=== PATIENT | male | born 1945 | race Caucasian/White ===

== ENCOUNTER 2018-04-15 20:44 | Observation (INO) | payer OTHER ==
[2018-04-15 22:21] LABS: Arterial Blood Carboxyhemoglob 1.1 % (0-1.5); Blood Gas Oxyhemoglobin 92.4 % (94-97); Blood O2 Saturation 94.7 % (92-98.5)
[2018-04-15 22:27] LABS: Absolute Lymphocytes (CBC) 1.7 K/uL (0.7-4.9); Absolute Monocytes 0.6 K/uL (0.1-1.3); Absolute Neutrophil 4.9 K/uL (1.8-8.0); Eosinophils % 7.4 % (0-4.4); Hematocrit 31.9 % (39.6-49.0); Lymphocytes % 21.8 % (15.3-44.8); MCV 102.7 fL (80-100); MPV 7.7 fL (7.6-11.3); Monocytes % 7.9 % (3.3-12.3)
[2018-04-15 22:31] LABS: Protime INR 0.97
[2018-04-15] MEDS ORDERED: FUROSEMIDE 40 MG/4 ML VIAL ONE (22:57)
[2018-04-15 23:23] LABS: Albumin 3.3 g/dL (3.4-5.0); Bilirubin Direct 0.2 mg/dL (0-0.2); Bilirubin Total 0.4 mg/dL (0.2-1.0); Magnesium 2.8 mg/dL (1.8-2.4); Potassium 4.6 mmol/L (3.5-5.1); Protein, Total 6.7 g/dL (6.4-8.2); Troponin (Emerg Dept Use Only) 0.05 ng/mL (0.0-0.045)
--- NOTE | 2018-04-16 01:16 | EDPHYS ---
Physician Documentation [facility] Name: Parish Matthews Age: 72 yrs Sex: Male : 1945 Arrival Date: 04/15/2018 Time: 20:45 Bed 23 Private MD: ED Physician Darian Martínez HPI: 04/15 22:12 This 72 yrs old Male presents to ER via Wheelchair with complaints of Chest pkl Pain. 22:12 The patient or guardian reports chest pain that is located primarily in the substernal pkl area. Onset: 2 week(s) ago, and became worse 2 day(s) ago. The pain radiates to the left arm. Associated signs and symptoms: Pertinent positives: hypertension. The chest pain is described as tightness. Historical: - Allergies: 21:04 antihisamines; aj1 - Home Meds: 21:04 carvedilol 6.25 mg oral tab 1 tab 2 times per day [Active]; clonidine HCl 0.1 mg Oral aj1 tab 1 tab as needed [Active]; allopurinol 75mg Oral tab 1 tab once daily [Active]; rosuvastatin 10 mg oral tab 1 tab once daily [Active]; sevelamer HCl oral oral 4 tab with meals [Active]; famotidine 20 mg Oral tab 1 tab once daily [Active]; - PMHx: 21:04 Dialysis; M,W,F; hernia repair 2 weeks ago; AV fistula to left arm; aj1 - PSHx: 21:04 Knee surgery; Cholecystectomy; aj1 - Immunization history:: Flu vaccine is up to date. - Social history:: Smoking status: Patient/guardian denies using tobacco. - Ebola Screening: : Patient denies travel to an Ebola-affected area in the 21 days before illness onset. ROS: 22:12 Eyes: Negative for injury, pain, redness, and discharge, ENT: Negative for injury, pkl pain, and discharge, Neck: Negative for injury, pain, and swelling. 22:12 Cardiovascular: Positive for chest pain. 22:12 Respiratory: Negative for cough. 22:12 Abdomen/GI: Negative for abdominal pain, nausea, vomiting, and diarrhea. 22:12 Back: Negative for acute changes. 22:12 : Negative for urinary symptoms. 22:12 MS/extremity: Negative for acute changes. 22:12 Skin: Negative for rash. 22:12 Neuro: Negative for altered mental status. Exam: 22:12 Head/Face: Normocephalic, atraumatic. Eyes: Pupils equal round and reactive to light, pkl extra-ocular motions intact. Lids and lashes normal. Conjunctiva and sclera are non-icteric and not injected. Cornea within normal limits. Periorbital areas with no swelling, redness, or edema. ENT: Nares patent. No nasal discharge, no septal abnormalities noted. Tympanic membranes are normal and external auditory canals are clear. Oropharynx with no redness, swelling, or masses, exudates, or evidence of obstruction, uvula midline. Mucous membranes moist. Neck: Trachea midline, no thyromegaly or masses palpated, and no cervical lymphadenopathy. Supple, full range of motion without nuchal rigidity, or vertebral point tenderness. No Meningismus. Chest/axilla: Normal chest wall appearance and motion. Nontender with no deformity. No lesions are appreciated. Cardiovascular: Regular rate and rhythm with a normal S1 and S2. No gallops, murmurs, or rubs. Normal PMI, no JVD. No pulse deficits. Respiratory: Lungs have equal breath sounds bilaterally, clear to auscultation and percussion. No rales, rhonchi or wheezes noted. No increased work of breathing, no retractions or nasal flaring. Abdomen/GI: Soft, non-tender, with normal bowel sounds. No distension or tympany. No guarding or rebound. No evidence of tenderness throughout. Back: No spinal tenderness. No costovertebral tenderness. Full range of motion. Skin: Warm, dry with normal turgor. Normal color with no rashes, no lesions, and no evidence of cellulitis. MS/ Extremity: Pulses equal, no cyanosis. Neurovascular intact. Full, normal range of motion. Neuro: Awake and alert, GCS 15, oriented to person, place, time, and situation. Cranial nerves II-XII grossly intact. Motor strength 5/5 in all extremities. Sensory grossly intact. Cerebellar exam normal. Normal gait. Vital Signs: 21:04 BP 195 / 102; Pulse 90; Resp 28; Temp 98.0; Pulse Ox 96% on R/A; Weight 117.93 kg (R); aj1 Height 5 ft. 8 in. (172.72 cm) (R); Pain 3/10; 21:30 BP 165 / 90; Pulse 66; Resp 18; Pulse Ox 97% on R/A; rv 22:00 BP 166 / 86; Pulse 63; Resp 18; Pulse Ox 98% on R/A; rv 22:30 BP 145 / 81; Pulse 65; Resp 16; Pulse Ox 100% on R/A; rv 23:00 BP 152 / 83; Pulse 61; Resp 15; Pulse Ox 98% on R/A; rv 23:30 BP 143 / 73; Pulse 58; Resp 16; Pulse Ox 98% on R/A; rv 04/16 00:00 BP 149 / 76; Pulse 64; Resp 16; Pulse Ox 100% on R/A; rv 00:58 BP 179 / 81; Pulse 64; Pulse Ox 99% on R/A; rv 02:11 BP 179 / 81; Pulse 78; Resp 19; Pulse Ox 97% on R/A; rv 04/15 21:04 Body Mass Index 39.53 (117.93 kg, 172.72 cm) aj1 MDM: 04/15 21:47 Patient medically screened. pkl 04/16 00:30 Data reviewed: vital signs, nurses notes, lab test result(s), EKG, radiologic studies, pkl plain films. 01:13 ED course: Talked to Dr. Manning, will dialyses patient in the morning. pkl 04/15 22:00 Order name: Basic Metabolic Panel pkl 04/15 22:00 Order name: CBC with Diff; Complete Time: 22:43 pkl 04/15 22:00 Order name: LFT's pkl 04/15 22:00 Order name: Magnesium pkl 04/15 22:00 Order name: NT PRO-BNP; Complete Time: 00:00 pkl 04/15 22:00 Order name: PT-INR; Complete Time: 22:43 pkl 04/15 22:00 Order name: Troponin (emerg Dept Use Only); Complete Time: 00:00 pkl 04/15 22:00 Order name: ABG; Complete Time: 22:43 pkl 04/15 22:02 Order name: Basic Metabolic Panel; Complete Time: 00:00 EDMS 04/15 22:02 Order name: Liver (Hepatic) Function; Complete Time: 00:00 EDMS 04/15 22:02 Order name: Magnesium; Complete Time: 00:00 EDMS 04/16 00:07 Order name: Troponin (emerg Dept Use Only); Complete Time: 00:42 rv 04/16 01:27 Order name: Basic Metabolic Panel EDMS 04/16 01:27 Order name: Basic Metabolic Panel EDMS 04/15 22:00 Order name: XRAY Chest (1 view) pkl 04/15 22:00 Order name: EKG; Complete Time: 22:02 pkl 04/16 01:27 Order name: CONS Physician Consult EDMS 04/16 01:27 Order name: Renal EDMS 04/16 01:27 Order name: EKG Electrocardiogram EDMS 04/16 01:27 Order name: EKG Electrocardiogram EDMS 04/16 01:27 Order name: EKG Electrocardiogram EDMS 04/16 01:27 Order name: EKG Electrocardiogram EDMS 04/16 01:27 Order name: CBC with Automated Diff EDMS 04/16 01:27 Order name: CBC with Automated Diff EDMS 04/16 01:27 Order name: Troponin I EDMS 04/16 01:27 Order name: Troponin I EDMS 04/16 01:27 Order name: Troponin I EDMS 04/16 05:08 Order name: CBC with Automated Diff EDMS 04/16 05:41 Order name: Basic Metabolic Panel EDMS 04/15 22:00 Order name: Cardiac monitoring; Complete Time: 22:15 pkl 04/15 22:00 Order name: EKG - Nurse/Tech; Complete Time: 22:02 pkl 04/15 22:00 Order name: IV Saline Lock; Complete Time: 22:15 pkl 04/15 22:00 Order name: Labs collected and sent; Complete Time: 22:15 pkl 04/15 22:00 Order name: O2 Per Protocol; Complete Time: 22:15 pkl 04/15 22:00 Order name: O2 Sat Monitoring; Complete Time: 22:15 pkl 04/16 00:07 Order name: EKG - Nurse/Tech; Complete Time: 00:20 rv Administered Medications: 04/15 22:52 Drug: Lasix 40 mg Route: IVP; Site: right antecubital; rv 04/16 00:20 Follow up: Response: No adverse reaction rv Disposition: 04/16/18 01:15 Hospitalization ordered by Sushil Abreu for Observation. Preliminary diagnosis is Chest pain. Chronic renal disease. Hypertension. Volume overload. - Bed requested for Telemetry/MedSurg (observation). - Status is Observation. ss - Condition is Stable. - Problem is new. - Symptoms are unchanged. UTI on Admission? No Signatures: Dispatcher [employer] EDMS Ade Brar Jacque Barrientos RN RN aj1 Darian Martínez MD MD pkl Radha Rodney RN RN bb Cecilia Slaughter RN RN ss Jim Sanz RN RN rv Corrections: (The following items were deleted from the chart) 01:17 01:15 Hospitalization Ordered by Sushil Abreu MD for Observation. Preliminary diagnosis pkl is Chest pain. Chronic renal disease. Hypertension. Volume overload. Bed requested for Telemetry/MedSurg (observation). Status is Observation. Condition is Stable. Problem is new. Symptoms are unchanged. UTI on Admission? No. pkl 01:34 01:17 04/16/2018 01:15 Hospitalization Ordered by Sushil Abreu MD for Observation. bb Preliminary diagnosis is Chest pain. Chronic renal disease. Hypertension. Volume overload. Bed requested for Telemetry/MedSurg (observation). Status is Observation. Condition is Stable. Problem is new. Symptoms are unchanged. UTI on Admission? No. pkl 08:27 01:34 04/16/2018 01:15 Hospitalization Ordered by Sushil Abreu MD for Observation. bd Preliminary diagnosis is Chest pain. Chronic renal disease. Hypertension. Volume overload. Bed requested for [facility] ER HOLD. Status is Observation. Condition is Stable. Problem is new. Symptoms are unchanged. UTI on Admission? No. bb 09:01 08:27 04/16/2018 01:15 Hospitalization Ordered by Sushil Abreu MD for Observation. ss Preliminary diagnosis is Chest pain. Chronic renal disease. Hypertension. Volume overload. Bed requested for Telemetry/MedSurg (observation). Status is Observation. Condition is Stable. Problem is new. Symptoms are unchanged. UTI on Admission? No. bd
--- NOTE | 2018-04-16 01:16 | ER ---
Nurse's Notes [facility] Name: Parish Matthews Age: 72 yrs Sex: Male : 1945 Arrival Date: 04/15/2018 Time: 20:45 Bed 23 Private MD: Diagnosis: Chest pain. Chronic renal disease. Hypertension. Volume overload Presentation: 04/15 21:00 Presenting complaint: Patient states: Chest pain for the past week that was aj1 intermittent, but the past 2 days it has felt more like tightness, become more persistent and has been accompanied by shortness of breath. States that symptoms are worse with activity and partially alleviated with rest. Transition of care: patient was not received from another setting of care. Onset of symptoms was March 2018. Risk Assessment: Do you want to hurt yourself or someone else? Patient reports no desire to harm self or others. Initial Sepsis Screen: Does the patient meet any 2 criteria? No. Patient's initial sepsis screen is negative. Does the patient have a suspected source of infection? No. Patient's initial sepsis screen is negative. Care prior to arrival: None. 21:00 Method Of Arrival: Wheelchair aj1 21:00 Acuity: STACY 3 aj1 Triage Assessment: 21:04 General: Appears in no apparent distress. uncomfortable, Behavior is cooperative, aj1 anxious. Pain: Complains of pain in mid-sternal area Pain radiates to left arm Pain currently is 3 out of 10 on a pain scale. Quality of pain is described as pressure, Pain began 2-3 days ago. Neuro: Level of Consciousness is awake, alert, obeys commands. Cardiovascular: Patient's skin is warm and dry. Respiratory: Airway is patent Respiratory effort is even, unlabored, Respiratory pattern is regular, symmetrical. Historical: - Allergies: 21:04 antihisamines; aj1 - Home Meds: 21:04 carvedilol 6.25 mg oral tab 1 tab 2 times per day [Active]; clonidine HCl 0.1 mg Oral aj1 tab 1 tab as needed [Active]; allopurinol 75mg Oral tab 1 tab once daily [Active]; rosuvastatin 10 mg oral tab 1 tab once daily [Active]; sevelamer HCl oral oral 4 tab with meals [Active]; famotidine 20 mg Oral tab 1 tab once daily [Active]; - PMHx: 21:04 Dialysis; M,W,F; hernia repair 2 weeks ago; AV fistula to left arm; aj1 - PSHx: 21:04 Knee surgery; Cholecystectomy; aj1 - Immunization history:: Flu vaccine is up to date. - Social history:: Smoking status: Patient/guardian denies using tobacco. - Ebola Screening: : Patient denies travel to an Ebola-affected area in the 21 days before illness onset. Screenin:17 Abuse screen: Denies threats or abuse. Denies injuries from another. Nutritional rv screening: No deficits noted. Tuberculosis screening: No symptoms or risk factors identified. Fall Risk None identified. Assessment: 22:16 General: Appears in no apparent distress. comfortable, Behavior is calm, cooperative. rv Pain: Complains of pain in chest. Pain: Pain Quality of pain is described as aching. Pain: Pain does not radiate. Pain: Pain began suddenly. Neuro: Level of Consciousness is awake, alert, obeys commands, Oriented to person, place, time, situation. Cardiovascular: Capillary refill < 3 seconds Rhythm is regular. Respiratory: Airway is patent Respiratory effort is labored. GI: No signs and/or symptoms were reported involving the gastrointestinal system. : No signs and/or symptoms were reported regarding the genitourinary system. EENT: No signs and/or symptoms were reported regarding the EENT system. Derm: Skin is intact. Musculoskeletal: No signs and/or symptoms reported regarding the musculoskeletal system. 04/16 00:37 Reassessment: Patient appears in no apparent distress at this time. rv 00:58 Reassessment: PATIENT IS COMPLAINING OF CHEST PAIN AND SOB AFTER AMBULATION. rv Vital Signs: 04/15 21:04 BP 195 / 102; Pulse 90; Resp 28; Temp 98.0; Pulse Ox 96% on R/A; Weight 117.93 kg (R); aj1 Height 5 ft. 8 in. (172.72 cm) (R); Pain 3/10; 21:30 BP 165 / 90; Pulse 66; Resp 18; Pulse Ox 97% on R/A; rv 22:00 BP 166 / 86; Pulse 63; Resp 18; Pulse Ox 98% on R/A; rv 22:30 BP 145 / 81; Pulse 65; Resp 16; Pulse Ox 100% on R/A; rv 23:00 BP 152 / 83; Pulse 61; Resp 15; Pulse Ox 98% on R/A; rv 23:30 BP 143 / 73; Pulse 58; Resp 16; Pulse Ox 98% on R/A; rv 04/16 00:00 BP 149 / 76; Pulse 64; Resp 16; Pulse Ox 100% on R/A; rv 00:58 BP 179 / 81; Pulse 64; Pulse Ox 99% on R/A; rv 02:11 BP 179 / 81; Pulse 78; Resp 19; Pulse Ox 97% on R/A; rv 04/15 21:04 Body Mass Index 39.53 (117.93 kg, 172.72 cm) aj1 ED Course: 04/15 20:45 Patient arrived in ED. ds1 21:02 Triage completed. aj1 21:04 Arm band placed on Patient placed in an exam room, Patient triaged in bed 23. aj1 21:47 Darian Martínez MD is Attending Physician. pkl 22:18 Patient has correct armband on for positive identification. Placed in gown. Bed in low rv position. Call light in reach. Side rails up X2. Adult w/ patient. groundwater monitoring technician on. Pulse ox on. NIBP on. 22:18 Initial lab(s) drawn, by me, sent to lab. Inserted saline lock: 20 gauge in right rv antecubital area, using aseptic technique. Blood collected. Patient maintains SpO2 saturation greater than 95% on room air. 22:35 XRAY Chest (1 view) In Process Unspecified. EDMS 23:26 Notified ED physician of a critical lab result(s). Creatinine 10.[address] Martínez jl3 notified, no order received. 04/16 01:13 Sushil Abreu MD is Hospitalizing Provider. pkl 02:13 No provider procedures requiring assistance completed. Patient admitted, IV remains in rv place. intact. 08:05 Estelita Ponce, RN is Primary Nurse. hb Administered Medications: 04/15 22:52 Drug: Lasix 40 mg Route: IVP; Site: right antecubital; rv 04/16 00:20 Follow up: Response: No adverse reaction rv Outcome: 01:15 Decision to Hospitalize by Provider. pkl 02:12 Admitted to ER Hold. Please see [facility] for further documentation. rv 02:12 Condition: stable 02:12 Instructed on the need for admit. 09:01 Patient left the ED. ss Signatures: Dispatcher [employer] EDJacque Leon, RN RN aj1 Darian Martínez MD MD pkl Sanford, Demi ds1 Cecilia Slaughter RN RN Michael Vidal RN RN jl3 Estelita Ponce RN RN Jim Joseph RN RN rv
[2018-04-16] MEDS ORDERED: ACETAMINOPHEN 500 MG TAB PO PRN (01:21)
[2018-04-16 05:06] LABS: Absolute Lymphocytes (CBC) 1.7 K/uL (0.7-4.9); Absolute Monocytes 0.7 K/uL (0.1-1.3); Absolute Neutrophil 4.5 K/uL (1.8-8.0); Eosinophils % 7.1 % (0-4.4); Hematocrit 29.6 % (39.6-49.0); MCH 34.7 pg (27.0-35.0); MCV 102.5 fL (80-100); MPV 7.5 fL (7.6-11.3); Monocytes % 9.2 % (3.3-12.3); RBC Red Blood Cell Count 2.89 M/uL (4.33-5.43)
[2018-04-16 05:40] LABS: Troponin I 0.05 ng/mL (0.0-0.045)
--- NOTE | 2018-04-16 07:32 | EKG ---
Test Date: 2018-04-16 Test Time: 00:16:13 Senior Sales Engineer: MEASUREMENT RESULTS: Intervals: Rate: 59 DE: 180 QRSD: 152 QT: 474 QTc: 469 [place]: P: 61 DE: 180 QRS: 80 T: 78 INTERPRETIVE STATEMENTS: Sinus bradycardia Right bundle branch block Abnormal ECG Compared to ECG 04/15/2018 20:57:05 Sinus rhythm no longer present Ventricular premature complex(es) no longer present Electronically Signed On 04-16-18 07:31:56 TELEGRAPHER AGENT by Leonel García
--- NOTE | 2018-04-16 07:34 | EKG ---
Test Date: 2018-04-15 Test Time: 20:57:05 Fleet Sales Manager: MACIEJ MEASUREMENT RESULTS: Intervals: Rate: 85 ME: 172 QRSD: 154 QT: 418 QTc: 497 [place]: P: 63 ME: 172 QRS: 75 T: 57 INTERPRETIVE STATEMENTS: Sinus rhythm with frequent premature ventricular complexes Right bundle branch block Abnormal ECG Compared to ECG 04/30/2003 15:27:00 Ventricular premature complex(es) now present Right bundle-branch block now present Electronically Signed On 04-16-18 07:33:18 GAGE DESIGNER by Leonel García
--- NOTE | 2018-04-16 08:19 | RAD REPORT ---
EXAM DESCRIPTION: RAD - Chest Single View - 04/15/2018 10:35 pm CLINICAL HISTORY: CHEST PAIN Chest pain. COMPARISON: Chest Pa And Lat (2 Views) dated 10/06/2015; CHEST PA AND LAT 2 VIEW dated 04/21/2014; [facility] PA AND LAT 2 VIEW dated 07/22/2011; CHEST PA AND LAT 2 VIEW dated 07/18/2011 FINDINGS: Portable technique limits examination quality. Mild interstitial pulmonary edema is seen. Heart is moderately enlarged in size. No displaced fractur es. IMPRESSION: Mild CHF versus volume overload pattern.
[2018-04-16] MEDS ORDERED: ASPIRIN EC 81 MG TAB PO SCH ×2 (09:00→21:00)
[2018-04-16] MEDS ORDERED: HEPA 1000U/500MLS 2,000 UNIT/1,000 ML BAG IV ONE (12:05)
[2018-04-16] MEDS ORDERED: HEPARIN 5000 UNIT/ML 1 ML VIAL ONE (12:05)
[2018-04-16] MEDS ORDERED: NA CHLORIDE 0.9% 500 ML ONE (12:05)
[2018-04-16] MEDS ORDERED: ATROPINE SULF 1 MG/10 ML SYR IV ONE (12:06)
[2018-04-16] MEDS ORDERED: NA CHLORIDE 0.9% 0 ML ONE (12:06)
[2018-04-16] MEDS ORDERED: NICARDIPINE HCL 25 MG/10 ML IV ONE (12:06)
[2018-04-16] MEDS ORDERED: FENTANYL CITR 100 MCG/2 ML ONE (12:58)
[2018-04-16] MEDS ORDERED: MIDAZOLAM HCL 2 MG/2 ML INJ ONE ×2 (12:58→13:40)
[2018-04-16] MEDS ORDERED: ALBUTEROL INHALER 60 PUFF/8 GM IH PRN (14:10)
--- NOTE | 2018-04-16 15:12 | CON ---
A 72-year-old man. Chief Complaint: Chest pain. History Of Present Illness: Mr. Matthews is a gentleman, who for about 5 days every time he moves too much he gets tight and heavy in the chest, runs out of breath. He is a hemodialysis patient. Today , he has been getting ready to start peritoneal dialysis. He has a port, but it has never been used. He has never had a heart catheterization or a stent in his heart. He has a history of hypertension . He is volume overloaded right now. His outpatient medications have been Coreg 6.25 b.i.d., clonid ine, allopurinol, Crestor 10, sevelamer, famotidine. He had an umbilical hernia repair 2 weeks ago. He has an AV fistula in his left arm and only has peritoneal dialysis. He has had knee surgery and a cholecystectomy. He uses no tobacco. Rare alcohol. No illegal drugs. Physical Examination: General: He is alert, oriented, pleasant, 5 feet 8 inches, 260 pounds, not in distress. Lungs: Clear. Cardiac: S4 gallop. Otherwise, within normal limits. Abdomen: Soft. Extremities: Mild edema. Distal pulses palpable. His radial pulse is good. Diagnostic Studies: An electrocardiogram shows sinus bradycardia, right bundle-branch block. He had PVCs on EKG at a different time this admission. Chest x-ray reveals volume overload. Impression: The patient has unstable angina. His troponins are terribly high, but his symptoms are highly suggestive of unstable angina. I do not recommend doing a stress test. I think he should do a heart catheterization. He seems to understand the procedure, potential benefits, indications, risk s, and agrees to proceed. NALLELY/MIGUEL ANGEL Voice ID: [id number] Report ID: [id number]
[2018-04-16] MEDS ORDERED: HOME MED 1 EA UNK (Budesonide/Formoterol Fumarate [Symbicort 80-4.5 Mcg Inhaler] 1 PUFF) IH SCH (18:00)
[2018-04-16] MEDS ORDERED: ALBUTEROL INHALER 60 PUFF/8 GM IH SCH (18:00)
[2018-04-16 20:08] LABS: Potassium 3.8 mmol/L (3.5-5.1)
[2018-04-16] MEDS ORDERED: ALLOPURINOL 100 MG TAB PO SCH (21:00)
[2018-04-16] MEDS ORDERED: SODIUM BICARB 325 MG TAB PO SCH (21:00)
[2018-04-16] MEDS: CARVEDILOL 6.25 MG TAB PO SCH (21:00)
[2018-04-16] MEDS ORDERED: ROSUVASTATIN 10 MG TAB PO SCH (21:00)
[2018-04-16] MEDS ORDERED: ATORVASTATIN 10 MG TAB PO SCH (21:00)
[2018-04-16] MEDS ORDERED: FAMOTIDINE 20 MG TAB PO SCH (21:00)
[2018-04-16] MEDS: HOME MED 1 EA UNK (Mycophenolate Mofetil [Cellcept] 500 MG) PO SCH (21:00)
--- NOTE | 2018-04-17 01:25 | OP ---
Surgeon: Leonel García MD Procedures: Left heart catheterization, coronary left ventricular angiography. Procedure Findings: The patient has normal coronary arteries, normal ejection fraction, normal segme ntal wall motion analysis, and normal pressures. Left ventricular end-diastolic pressure 13 mmHg. Procedure In Detail: The patient was brought to the cardiac stores laborer in a fasting state. Sedated wi th Versed and fentanyl. Prepared and draped in the usual sterile fashion. Right radial approach was used. The tissues around the right radial artery were anesthetized with 1% lidocaine. The artery w as entered using a 21-gauge needle. A 0.021 inch diameter guidewire was used to cannulate the artery and then modified Seldinger technique allowed us to place a 6-[place] [employer] radial sheath. We flush ed the sheath and gave a radial cocktail consisting of nicardipine, heparin, nitroglycerin. A TIG ca theter by [employer] was used, guided into place using fluoroscopy and a [employer] Glidewire with a short ra dius J-tip. Once the catheter was in place, we were able to angiogram right coronary, left coronary, and left ventricle; all with the same catheter. We withdrew the catheter over a wire at the end of the procedure when the decision was made that he did not need any coronary interventions. The sheath was removed. The arteriotomy closed with a TR band. At the end of the procedure, no complication. Estimated Blood Loss: 5 cc. Orthopedics Nurse: Marietta Rossi. NALLELY/MIGUEL ANGEL Voice ID: [id number] Report ID: [id number]
--- NOTE | 2018-04-17 03:49 | CON ---
Date of Consultation: 04/16/2018 Chief Complaint: End-stage renal disease on dialysis, severe dyspnea, chest pain. History Of Present Illness: The patient was found to have fluid overload and Nephrology consultation was obtained for emergent dialysis. The patient presented to the hospital for chest pain. He was complaining of substernal chest pain. Chest pain occurred about 2 weeks ago, although chest pain became worse and was associated with activities over last 2 days. The patient was complaining of substernal upper chest pain radiating to left arm. He checked blood pressure at home and blood pressure was elevated. Usually patient does not take blood pressure medication and blood pressure is controlled with low- sodium diet and dialysis. The patient is dialysis dependent and has been dialyzed 3 times per week. Recently, he was out of town and was coming back to his usual dialysis unit and was dialyzed prior to this admission. Despite the fact that ultrafiltration was obtained, patient was complaining of some shortness of breath, chest tightness. He took clonidine at home for systolic blood pressure over 160. He has been taking carvedilol on daily basis. Occasionally when blood pressure systolic is in the low 110, he does not take carvedilol. Review of Systems: General: Denies fever, chills. Eyes: Denies vision changes. Ears, Nose, Mouth, And Throat: Denies sore throat, earache. Respiratory: Has dyspnea on exertion and dyspnea at rest. Denies PND, orthopnea. Cardiovascular: Had chest pain. Was complaining of chest pressure radiating to left arm. GI: Denies nausea, vomiting. : Denies dysuria, hematuria. Musculoskeletal: Denies muscle aches or joint swelling. All other systems reviewed and all are negative. Past Medical History: Hypertension, hyperuricemia, gout, renal osteodystrophy, peptic ulcer disease, GERD, hypertensive heart and kidney disease, osteoarthritis . Past Surgical History: Status post has cholecystectomy, status post left upper extremity AV fistula. Social History: Denies tobacco, alcohol, or illicit drugs. Family History: No kidney disease in the family. Physical Examination: General: The patient is awake, alert, follows, not in acute distress. Eyes: Anicteric sclerae, EOMI. Neck: Supple. No JVD. No bruits. Lungs: Diminished breath sounds at bases. Heart: S1, S2. No pericardial friction rub. Abdomen: Obese, soft, nontender, no rebound, no guarding. Extremities: Mild edema. No cellulitis Neurological: Moving extremities. Cranial nerves intact. Psychiatric: Alert, oriented x3. Normal affect. Laboratory Work: Hemoglobin 10.0, WBC 7.4, platelet count is 152,000. Sodium 137, potassium 5.0, chloride 107, CO2 24, BUN 66, creatinine 10.7, glucose 94, troponin 0.05. Impression And Plan: End-stage renal disease, fluid overload, chest pain. The patient was found to have elevated BNP up to 22,363. The patient was found to have chest vascular congestion and fluid overload associated with hypertensive heart disease. He has a history of hypertensive heart disease and stat dialysis was done for congestive heart failure, he has diastolic dysfunction. Chest x-ray visualized mild congestive heart failure with volume overload. There is mild interstitial pulmonary edema. The patient will continue O2 nasal cannula as needed. Monitor oxygenation, advance oxygen therapy. 1. Continue p.o. fluid restriction and low-sodium diet. 2. Hypertension. Continue carvedilol according to blood pressure. Blood pressure is improving with volemia control. The patient will require daily dialysis. The patient is to have cardiac catheterization to rule out coronary artery disease and the patient will have electrolytes checked after contrast exposure and if potassium is elevated the patient would need an emergent dialysis to prevent contrast-induced hyperkalemia. Otherwise, the patient will have dialysis tomorrow after IV contrast exposure. 3. Hypoalbuminemia. Albumin is 3.3. The patient will continue high-protein intake. Monitor electrolytes. When the patient is on daily dialysis, the patient has history of hyperphosphatemia and renal osteodystrophy. The patient will continue binders to control hyperphosphatemia. 4. Anemia in chronic kidney disease. Monitor hemoglobin level. 5. The patient will continue PPI. BERNARDINO/MODL Voice ID: [id number] Report ID: [id number] MELVIN
[2018-04-17 04:21] LABS: Absolute Lymphocytes (CBC) 1.5 K/uL (0.7-4.9); Absolute Monocytes 0.6 K/uL (0.1-1.3); Basophils % 1.4 % (0-1.3); Eosinophils % 7.2 % (0-4.4); Hematocrit 30.1 % (39.6-49.0); MCH 34.3 pg (27.0-35.0); MCV 101.5 fL (80-100); MPV 7.5 fL (7.6-11.3); Monocytes % 10.8 % (3.3-12.3); RBC Red Blood Cell Count 2.96 M/uL (4.33-5.43)
[2018-04-17 04:44] LABS: Potassium 4.2 mmol/L (3.5-5.1)
--- NOTE | 2018-04-17 05:28 | HP ---
Date of Admission: 04/15/2018 Chief Complaint: Recurrent chest pain radiating to left arm, difficulty breathing. History Of Present Illness: A 72-year-old male, who is on chronic hemodialysis, was brought to the e mergency room because of recurrent chest pain as well as difficulty with breathing. The patient had evaluation done. There was no evidence of acute myocardial infarction, however, he had evidence of v olume overload. The patient is admitted for observation. There is no history of fever, chills, sharita rs, or other systemic symptoms. Past Medical History: Positive for chronic renal failure needing hemodialysis. Past Surgical History: Positive for knee surgery, gallbladder surgery, hernia surgery. Home Medicines: Include carvedilol, clonidine, allopurinol, Crestor, Pepcid. Allergies: ANTIHISTAMINE. Review of Systems: No history of fever, chills, rigors. Physical Examination: General: Revealed 72-year-old male, not in acute distress. HEENT: Negative. Neck: Supple. JVD negative. Chest: Scattered wheezes and crackles. Heart: Regular. Abdomen: Peritoneal dialysis catheter in place. Extremities: No edema. Laboratory: Troponin 0.05. Chest x-ray, pulmonary congestion. Assessment: 1.Recurrent chest pain. 2.Volume overload. 3.Chronic renal failure on dialysis. 4.Hypertension. Plan: The patient had hemodialysis done after which patient underwent cardiac cath. The patient had no evidence of coronary artery disease. The patient will undergo dialysis tomorrow after which he w ill be discharged unless there are some new issues to deal with. KEVIN/MIGUEL ANGEL Voice ID: [id number]
[2018-04-17 06:05] VITALS: BMI 39.6
[2018-04-17] MEDS: SEVELAMER CARBONATE 800 MG TABLET PO SCH ×2 (08:00→12:00)
[2018-04-17] MEDS: HOME MED 1 EA UNK (Mycophenolate Mofetil [Cellcept] 500 MG) PO SCH (09:00)
[2018-04-17] MEDS ORDERED: FOLIC ACID PO SCH (09:00)
[2018-04-17] MEDS ORDERED: MULTIVITAMINS,THERAPEUT 1 TAB PO SCH (09:00)
[2018-04-17] MEDS ORDERED: ASPIRIN 81 MG CHEWABLE TABLET PO SCH (09:00)
[2018-04-17] MEDS ORDERED: FAMOTIDINE 20 MG TAB PO SCH (09:00)
[2018-04-17] MEDS ORDERED: VITAMIN B COMP W C PO SCH (09:00)
[2018-04-17] MEDS ORDERED: ALLOPURINOL 300 MG TAB PO SCH (09:00)
[2018-04-17] MEDS ORDERED: HOME MED 1 EA UNK (Lovastatin [Lovastatin] 20 MG) PO SCH (09:00)
[2018-04-17 09:26] VITALS: O2SAT 95
[2018-04-17] MEDS: CARVEDILOL 6.25 MG TAB PO SCH (10:00)
--- NOTE | 2018-04-17 12:10 | EKG ---
Test Date: 2018-04-17 Test Time: 07:42:56 Scooter Mechanic: CHRISTIE MEASUREMENT RESULTS: Intervals: Rate: 61 VT: 186 QRSD: 154 QT: 496 QTc: 499 Fitzpatrick: P: 53 VT: 186 QRS: 68 T: 64 INTERPRETIVE STATEMENTS: Normal sinus rhythm Right bundle branch block Abnormal ECG Compared to ECG 04/16/2018 00:16:13 Sinus bradycardia no longer present Electronically Signed On 04-17-18 12:09:05 IN [employer] by Kade Merrill
[2018-04-17 17:06] VITALS: BP 150/70; TEMP 97.9
--- NOTE | 2018-04-18 01:29 | PN ---
Date of Progress Note: 04/17/2018 Subjective: The patient was admitted with chest pain, over volume, status post dialysis daily recove r, now euvolemic. The patient seen on dialysis. Physical Examination: Vital Signs: Blood pressure 150/70, pulse of 60. Chest: Clear to auscultation. Heart: S1, S2. Regular. Abdomen: Soft, nontender. Extremities: No edema. Laboratory Data: H and H 10.2/30.1. Sodium 137, potassium 4.2, bicarb 26, BUN 46, creatinine 7.8, c alcium 8.8. Current Medications: The patient on its include: 1.Aspirin. 2.Albuterol. 3.Allopurinol. 4.Pravastatin. 5.Renvela. 6.B complex. Assessment And Plan: 1.End-stage renal disease with over volume, status post daily dialysis, recover back to normal volum e. We will continue dialysis Monday, Monday, Monday. 2.Secondary hyperparathyroidism, stable. Continue binder. 3.Anemia of chronic kidney disease. Continue SAQIB. 4.Over volume, acute coronary syndrome has been ruled out. The patient euvolemic currently. We will be going back to dialysis 3 times a week and we will follow up. JORGE Voice ID: [id number] Report ID: [id number]
== END 2018-04-17 17:49 | disposition home or self-care (01) ==
LOC: ER 20:44 → ERHOLD 04-16 01:19 → 4TH 04-16 09:24
PROVIDERS: ADMIT Internal Medicine; ATTEND Internal Medicine
PROC: 4A023N7 Measurement of Cardiac Sampling and Pressure, Left Heart, Percutaneous Approach (ICD-10-PCS; principal; 2018-04-16)
PROC: B201YZZ Plain Radiography of Multiple Coronary Arteries using Other Contrast (ICD-10-PCS; 2018-04-16)
PROC: B205YZZ Plain Radiography of Left Heart using Other Contrast (ICD-10-PCS; 2018-04-16)
DX: R07.9 Chest pain, unspecified (principal); I13.2 Hypertensive heart and chronic kidney disease with heart failure and with stage 5 chronic kidney disease, or end stage renal disease; I50.30 Unspecified diastolic (congestive) heart failure; N18.6 End stage renal disease; E87.70 Fluid overload, unspecified; M10.9 Gout, unspecified; E21.3 Hyperparathyroidism, unspecified; D63.1 Anemia in chronic kidney disease; Z99.2 Dependence on renal dialysis
CPT/HCPCS: 36415 ×2; 71045; 80048 ×4; 80076; 82805; 83735; 83880; 84484 ×4; 85025 ×3; 85610; 90935; 93005 ×3; 93458; 96374; 99285; C1893; G0378 ×2; J1644 ×2; J1940; J2250; J3010; J0583

== ENCOUNTER 2019-09-10 13:00 | Observation (INO) | payer OTHER ==
[2019-09-10 18:29] VITALS: BMI 23.6
[2019-09-11 12:54] VITALS: O2SAT 96
[2019-09-11 17:49] VITALS: BP 128/79; TEMP 97.2
== END 2019-09-11 18:41 | disposition home or self-care (01) ==
LOC: ER 13:00 → ERHOLD 15:40 → 4TH 18:04 → 2ND 09-11 04:52
PROVIDERS: ADMIT Family Medicine; ATTEND Family Medicine
PROC: 5A1D70Z Performance of Urinary Filtration, Intermittent, Less than 6 Hours Per Day (ICD-10-PCS; principal; 2019-09-11)
DX: J18.9 Pneumonia, unspecified organism (principal); J90 Pleural effusion, not elsewhere classified; N18.6 End stage renal disease; N25.81 Secondary hyperparathyroidism of renal origin; Z20.828 Contact with and (suspected) exposure to other viral communicable diseases; I12.0 Hypertensive chronic kidney disease with stage 5 chronic kidney disease or end stage renal disease; J44.9 Chronic obstructive pulmonary disease, unspecified; G47.33 Obstructive sleep apnea (adult) (pediatric); D63.8 Anemia in other chronic diseases classified elsewhere; E78.5 Hyperlipidemia, unspecified; Z99.81 Dependence on supplemental oxygen; Z87.01 Personal history of pneumonia (recurrent)
CPT/HCPCS: 36415; 71045; 71046; 80048; 81003; 81015; 83735; 83880; 84145; 84484; 85025; 85610; 87040; 87077; 87086; 87088; 87186; 90935; 96374; 99285; G0257; G0378; J0456; J0696; J1644; J7030; U0002

== ENCOUNTER 2021-09-01 01:16 | Observation (INO) | payer OTHER ==
--- OUTSIDE RECORDS SUMMARY | 2021-09-01 01:20 | XMS REPORT | Continuity of Care Document ---
:1945 Author Organization [facility] t Address [address] [place] [address] Care Team Providers Name Role Phone Maxx Felder Attending Clinician Unavailable Donte Admitting Clinician Unavailable Payers Payer Name Policy Type Policy Number Effective Date Expiration Date S ource Problems This patient has no known problems. Allergies, Adverse Reactions, Alerts Allergy Allergy Status Severity Reaction(s) Onset Inactive Treating Comm ents Source Name Type Date Date Clinician Antihist DA Active MO 2020-0 [facility] amines - 2-21 Clear Alkylami 00:00: [address] Antihist DA Active MO CONGESTION 2020-0 [facility] amines - 2-21 Clear Alkylami 00:00: [address] No Known DA Active U 2020-0 [facility] Allergie 2-20 Clear s 00:00: [address] No Known DA Active U 2020-0 [facility] Allergie 2-20 Clear s 00:00: [address] Medications This patient has no known medications. Procedures This patient has no known procedures. Encounters Start End Encounter Admission Attending Care Care Encounter Source Date/Time Date/Time Type Type Clinicians Facility Department ID 2021-08-26 [facility] [id number] [facility] [address] 13:43:03 [facility] ent Clinics 2019-07-12 Inpatient Rene Felder [facility] DA[facility] [id number] [facility] 11:00:00 [id number] [facility] 2019-08-06 2019-08-06 [facility] [id number] [facility] 08:00:00 08:00:00 [id number] [facility] 2019-07-30 2019-07-30 Outpatient Du, Rene [facility] [id number] [facility] 10:00:00 10:00:00 [facility] Results Test Description Test Time Test Comments Results Result Comments Source SARS-COV2/RT-PCR ([facility]) 2019-09-11 00:29:00 Test Item Value Reference Range Interpretation Comme nts SARS-COV2/RT-PCR (test code = 5979712) Not Detected Not Detected, N egative SARS-COV-2 PERFORMING LAB (test code = [facility] 3157995) Negative results do not preclude SARS-CoV-2 infection and should not be used as the sole basis for patient management decisions. Negative results must be combined with clinical observations, patient history, and epidemiological information. A false negative result may occur if a specimen is improperly collected, transported or handled.The limit of detection for this assay is 250 copies/mL.This SARS CoV-2 test is a rapid, real-time RT-PCR test intended for the qualitative detection of nucleic acid from SARS-CoV-2 in a nasopharyngeal swab specimen collected from individuals suspected of COVID-19 by their healthcare provider.This test has not been Food and Drug Administration (FDA) cleared or approved and has been authorized by FDA under an Emergency Use Authorization (EUA). This EUA will be effective until the declaration that circumstances exist justifying the authorization of the emergency use of in vitro diagnostic tests for detection and/or diagnosis of COVID-19 is terminated under Section 564(b)(2) of the Act or the EUA is revoked under Section 564(g) of the Act.Fact Sheet for Healthcare Pro viders:https://www.[employer].FastSoft/Documents/Xpert%20Xpress%20SARS%20CoV-2/Fact%20Sh eets/302-6143%32ADOZ-GCC-3%20HEALTHCARE%20PROVIDERS%20FACT%20SHEET.pdfFact Sheet for Healthcare Patients:https://www.[employer]/Documents/Xpert%20Xpress%20SARS%20CoV-2/Fact%20Sheets/302-3801%20SARS-COV -2%20PATIENT%20FACT%20SHEET.pdfPerforming Laboratory:[facility] [place] [address]- [place] GASTRIC [id number] 09:09:00 FAX: Rene Felder MD [phone] [place]: St: REG FAX: Sushil Pepe [phone] Name: KANU NORWOOD [facility] : 1945 Age/S: 74/M [address] [place] [address] Unit #: [id number] Loc: [place] [address] Phys: Rene Felder MD Acct: [id number] Dis Date: Status: REG CLI PHONE #: [phone] Exam Date: 08/06/2019907 FAX #: [phone] Reason: R10.9 ABD CRAMPING, R14.0 BLOATING EXAMS: CPT CODE: [id number] NM GASTRIC EMPTYING 51571 PROCEDURE: NUCLEAR MEDICINE GASTRIC EMPTYING STUDY INDICATION: Abdominal pain, abdominal cramping, belching COMPARISON: None. TECHNIQUE: 1 mCi labeled sulfur colloid administered in a semisolid meal. Dynamic imaging was performed in anterior projection. Computer analysis obtained. FINDINGS: The stomach demonstrates visible emptying. 50% emptying at 41.7 minutes, normal less than 90 minutes. IMPRESSION:Normal gastric emptying. SL: [id number] at 0909 Reported and signed by: Sonia Simms D.O. CC: Rene Felder MD; Sushil Kent MD Technologist: LONG Lee (N)(CT); ... Trnscrd Date/Time/By: 08/06/2019 (908) : By: [email or web address] Orig Print D/T: S: 08/06/2019 (912) PAGE 1 Signed ReportSURGICAL [id number] 11:38:00 RUN DATE: 08/04/19 [facility] *LIVE* PAGE 1 RUN TIME: 0758 Specimen Inquiry RUN USER: INTERFACE PATIENT: KANU NORWOOD LOC: [place] U #: [id number] AGE/SX: 74/M ROOM: RE07/12/19[facility] DR: Rene Felder MD : 47 BED: DIS: STATUS: [facility] TLOC: SPEC #: [id number] RECD: 07/12/19 STATUS: RENAN REQ #: [id number] KAMRAN: 07/12/19 [facility] DR: Rene Felder MD ENTERED: 08/03/19 SP TYPE: SURG SPEC OTHR DR: Sushil Kent MD ORDERED: GM LEVEL 4 CODES: [id number] - SMALL INTESTINE COPIES TO: Rene Felder MD [address] [place] [address] [address] [place], [place] [address] Sushil Kent MD [address] [place] [address] PROCEDURES: GM LEVEL 4 (Incomplete) TISSUES: 1. SMALL INTESTINE, NOS - Small intestine, duodenum, bx. FINAL DIAGNOSIS Small intestine, duodenum, bx.: Intact villous architecture, no definite mass lesion is identified. GROSS AND MICROSCOPIC GROSS DESCRIPTION: Received in formalin labeled duodenal polyp is one an tissue fragment measuring up to 0.3 cm submitted in one cassette. MICROSCOPIC EXAMINATION: Sections of the duodenal biopsy reveal small intestinal mucosa with intact villous architecture. There is no significant increase in intraepithelial lymphocytes. No definite mass lesion is identified. POST-OP DIAGNOSIS Duodenal polyp, diverticulosis, hemorrhoids CONTINUED ON NEXT PAGE RUN DATE: 08/04/19 [facility] *LIVE* PAGE 2 RUN TIME: 1138 Specimen Inquiry RUN USER: INTERFACE SPEC #: [id number] PATIENT: KANU NORWOOD #[id number] ([facility] ed) PRE-OP DIAGNOSIS GERD, screening colon cancer REVIEWED BY: MARIANA Signed SIGNATURE ON FILE Dimitris Smith Lynnette DUFFY 08/04/19 1138 END OF REPORT - CT ABD PELVIS W/O [id number] 10:38:00 Name: KANU NORWOOD [facility] : 1945 Age/S: 74 / M [address] [place] [address] Unit #: [id number] Loc: [facility] [id number] Phys: Rene Felder MD Acct: [id number] Dis Date: Status: REG CLI PHONE #: [phone] Exam Date: 07/30/2019 1001 FAX #: [phone] Reason: R10.9, A BDOMINAL CRAMPING. BLOATING. EXAMS: CPTCODE: [id number] CT ABD PELVIS W/O CONT 58587 PROCEDURE: CT abdomen and pelvis without contrast. Reconstruction images. INDICATION: R10.9, ABDOMINAL CRAMPING. BLOATING.. TECHNIQUE: GI CONTRAST: 10 mL Gastrografin diluted in water. IV CONTRAST: None. Helical axial imaging was performed from the diaphragm through the symphysis. Coronal and sagittal reformations obtained. COMPARISON: Chest radiographs dated 07/12/2019. FINDINGS: This examination is limited for the evaluation of solid organs and vascular structures due to lack of intravenous contrast. LOWER CHEST: Small bilateral pleural effusions, right greater than left. Pleural thickening identified within bilateral lower chest, more so on the left side. Left pleural fluid measures 11 Hounsfield units. Right pleural fluid measures 20 Hounsfield units. No pericardial effusion. The heart is not enlarged. Coronary arterial calcifications identified. Interstitial and alveolar density identified within the lung bases. Consolidation is most prominent within the posterior lung bases, right greater than left. Right lower lobe calcified granuloma. SOLID ORGANS: Liver parenchyma appears unremarkable. Gallbladder has been surgically removed. No biliary dilatation. Pancreas, spleen, adrenal glands appear unremarkable. Severe bilateral renal parenchymal atrophy with small kidneys. Multiple bilateral renal cysts. No hydronephrosis. Findings compatible with severe renal parenchymal disease. Possible nonfunctioning kidneys. BOWEL: Normal appendix identified in the right lower quadrant. Colonic diverticulosis identified. Diverticula are most numerous in the left colon and sigmoid colon. No acute inflammation. No obstruction or ileus. Bowel is otherwise unremarkable. PERITONEUM: No free intraperitoneal fluid or air. No ventral wall defects. Postsurgical changes in the ventral wall the pelvis. RETROPERITONEUM: No adenopathy. No vascular aneurysm. Moderate to severe vascular wall calcifications identified. PAGE 1 Signed Report (CONTINUED) Name: KANU NORWOOD [facility] : 1945 Age/S: 74 / M [address] [place] [address] Unit #: [id number] Loc: [place] [address] Ph ys: Rene Felder MD Acct: [id number] Dis Date: Status: REG CLI PHONE #: [phone] Exam Date: 07/30/2019 1001 FAX #: [phone] Reason: R10.9, ABDOMINAL CRAMPING. BLOATING. EXAMS: CPT CODE: [id number] CTABD PELVIS W/O CONT 31786 <Continued> PELVIS:No pelvic mass. The urinary bladder is normal. MUSCULOSKELETAL: No acute bony abnormality. Multilevel moderate to severe degenerative changes identified. Multilevel disc osteophyte complexes with moderate to severe central canal and foraminal narrowing, most prominentin the lower lumbar spine and lumbar sacral junction. IMPRESSION: 1. Small bilateral pleural effusions, right greater than left. Possible slightly complex fluid wi th pleural thickening. 2. Bilateral basilar pneumonia versus atelectasis, edema. 3. Findings suggesting severe bilateral renal parenchymal disease with possible nonfunctioningkidneys. 4. Colonic diverticulosis. 5. Extensive chronic degenerative changes. SL: [id number] at 1038 Reported and signed by: Akin Katz M.D. CC: Rene Felder MD; Sushil Kent MD Techno logist:Tera Connors RT(R)(CT) CTDI: DLP: Trnscb Date/Time: 07/30/2019 (1038) [email or web address] Orig Print D/T: S: 07/30/2019 (6000) PAGE 2 Signed ReportBASIC METABOLIC [id number] 08:56:00 Test Item Value Reference Range Interpretation Comments SODIUM (test code = NA) 133 mEq/L 134-147 L POTASSIUM (test code = 5.1 mEq/L 3.4-5.0 H K) CHLORIDE (test code = 97 mEq/L 100-108 L CL) CARBON DIOXIDE (test 25 mEq/L 21-33 N code = CO2) ANION GAP (test code = 16 0-20 N GAP) GLUCOSE (test code = 75 mg/dL 70-110 N GLU) BLOOD UREA NITROGEN 64 mg/dL 7-18 H (test code = BUN) GLOMERULAR FILTRATION 4.6 70-80 L Units of measure = RATE (test code = GFR) ml/mi n/1.73 m2 CREATININE (test code = 11.0 mg/dL 0.6-1.3 H CREAT) CALCIUM (test code = 10.3 mg/dL 8.0-10.5 N CA) BASIC METABOLIC [id number] 08:51:00 Test Item Value Reference Range Interpretation Comments SODIUM (test code = NA) 133 mEq/L 134-147 L POTASSIUM (test code = K) 5.1 mEq/L 3.4-5.0 H CHLORIDE (test code = CL) 97 mEq/L 100-108 L CARBON DIOXIDE (test code = CO2) 25 mEq/L 21-33 N ANION GAP (test code = GAP) 16 0-20 N GLUCOSE (test code = GLU) 75 mg/dL 70-110 N BLOOD UREA NITROGEN (test code = 64 mg/dL 7-18 H BUN) GLOMERULAR FILTRATION RATE (test 70-80 code = GFR) CREATININE (test code = CREAT) mg/dL 0.6-1.3 CALCIUM (test code = CA) 10.3 mg/dL 8.0-10.5 N - XR CHEST 2 [id number] 08:50:00 FAX: Rene Felder MD [phone] [place]: St: [facility] FAX: Sushil Pepe [phone] FAX: Mary Liz N Name: KANU NORWOOD [facility] : 1945 Age/S: 74/M [address] [place] [address] Unit #: [id number] Loc: [place] [address] Phys: Mary Liz NP Acct: [id number] Dis Date: Status: [facility] PHONE #: [phone] Exam Date: 07/12/2019 0850 FAX #: [phone] Reason: PRE-OP EGD/COLON EXAMS: CPT CODE: [id number] XR CHEST 2 V 82605 Study: - XR CHEST 2 V 07/12/2019 7:59 AM Patient Name: KANU NORWOOD MR: [id number] : 1945; Age: 74 years y/o Male Ordering Physician: Mary Liz NP Clinical Indication: PRE-OP EGD/COLON Comparison: None FINDINGS LUNGS: Small bilateral pleural effusions and hazy lower lung airspace opacities HEART AND MEDIASTINUM: Normal size heart. LINES: None. OSSEOUS STRUCTURES: Mild to moderate spinal degenerative change without acute fracture, dislocation, or suspicious focal osseous lesion. OTHER: Vascular stent in the left brachial region, partially imaged. IMPRESSION: Small bilateral pleural effusions SL: [id number] at 0850 Reported and signed by: Guillermo Maguire M.D. CC: Rene Felder MD; Sushil Kent MD; Mary Liz NP Technologist:RT Vinayak(Stanislav) Trnscrd Date/Time/By: 07/12/2019 (8943) : By: [email or web address] Orig Print D/T: S: 07/12/2019 (8600) PAGE 1 Signed ReportCBC W/AUTO [id number] 08:30:00 Test Item Value Reference Range Interpretation Comments WHITE BLOOD CELL (test code = 7.30 x10 3/uL 4.5-11.0 N WBC) RED BLOOD CELL (test code = 3.18 x10 6/uL 4.00-5.60 L RBC) HEMOGLOBIN (test code = HGB) 10.3 g/dL 12.5-16.9 L HEMATOCRIT (test code = HCT) 33.1 % 37.5-50.7 L MEAN CELL VOLUME (test code = 104.1 fL 81.0-99.0 H MCV) MEAN CELL HGB (test code = MCH) 32.4 pg 27.0-33.0 N MEAN CELL HGB CONCETRATION 31.1 g/dL 33.0-37.0 L (test code = MCHC) RED CELL DISTRIBUTION WIDTH CV 13.5 % 11.5-14.5 N (test code = RDW) RED CELL DISTRIBUTION WIDTH SD 52.0 fL 37.0-54.0 N (test code = RDW-SD) PLATELET COUNT (test code = 292 x10 3/uL 150-400 N PLT) MEAN PLATELET VOLUME (test code 8.7 fL 7.0-9.0 N = MPV) NEUTROPHIL % (test code = NT%) 66.0 % 56.0-77.0 N IMMATURE GRANULOCYTE % (test 0.3 % 0.0-2.0 N code = IG%) LYMPHOCYTE % (test code = LY%) 18.9 % 14.0-32.0 N MONOCYTE % (test code = MO%) 7.8 % 4.8-9.0 N EOSINOPHIL % (test code = EO%) 6.2 % 0.3-3.7 H BASOPHIL % (test code = BA%) 0.8 % 0.0-2.0 N NUCLEATED RBC % (test code = 0.0 % 0-0 N NRBC%) NEUTROPHIL # (test code = NT#) 4.82 x10 3/uL 2.0-7.6 N IMMATURE GRANULOCYTE # (test 0.02 x10 3/uL 0.00-0.03 N code = IG#) LYMPHOCYTE # (test code = LY#) 1.38 x10 3/uL 1.0-3.8 N MONOCYTE # (test code = MO#) 0.57 x10 3/uL 0.1-0.8 N EOSINOPHIL # (test code = EO#) 0.45 x10 3/uL 0.0-0.2 H BASOPHIL # (test code = BA#) 0.06 x10 3/uL 0.0-0.2 N NUCLEATED RBC # (test code = 0.00 x10 3/uL 0.0-0.1 N NRBC#) MANUAL DIFF REQUIRED (test code NO = MDIFF)
[2021-09-01 02:30] LABS: Absolute Lymphocytes (CBC) 0.6 K/uL (0.7-4.9); Hematocrit 38.5 % (39.6-49.0); Lymphocytes % 9.6 % (15.3-44.8); MPV 6.7 fL (7.6-11.3); RBC Red Blood Cell Count 3.69 M/uL (4.33-5.43)
[2021-09-01 03:03] LABS: Albumin 3.6 g/dL (3.4-5.0); Bilirubin Total 0.5 mg/dL (0.2-1.0); Protein, Total 8.2 g/dL (6.4-8.2)
[2021-09-01] MEDS ORDERED: MORPHINE 2 MG/ML SYR ONE (04:09)
[2021-09-01] MEDS ORDERED: ONDANSETRON 4 MG/2 ML VIAL ONE (04:09)
[2021-09-01] MEDS ORDERED: FAMOTIDINE 20 MG/2 ML VIAL IV ONE (04:09)
--- NOTE | 2021-09-01 04:11 | EDPHYS ---
Physician Documentation [facility] Name: Parish Matthews Age: 76 yrs Sex: Male : 1945 Arrival Date: 09/01/2021 Time: 01:21 Bed 24 Private MD: ED Physician Aries Romano HPI: 09/01 02:04 This 76 yrs old Male presents to ER via Ambulatory with complaints of Diarrhea. mh7 02:04 The patient presents to the emergency department with diarrhea, that is intermittent. mh7 Onset: The symptoms/episode began/occurred 4 day(s) ago. Possible causes: unknown. The symptoms are aggravated by nothing. The symptoms are alleviated by nothing. Associated signs and symptoms: Pertinent negatives: abdominal pain, anorexia, belching, constipation, dysuria, fever, flatulence, GI bleeding, hematuria, nausea, vomiting. Severity of symptoms: At their worst the symptoms were moderate 3 day(s) ago, in the emergency department the symptoms are unchanged. Historical: - Allergies: 01:37 antihisamines; bb - PMHx: 01:37 AV fistula to left arm; Dialysis; M,W,F; hernia repair 2 weeks ago; Pneumonia; Sleep bb Apnea; - Immunization history:: Moderna x 2. - Social history:: Smoking status: Patient denies any tobacco usage or history of. ROS: 02:04 Constitutional: Negative for fever, chills, and weight loss, Eyes: Negative for injury, mh7 pain, redness, and discharge, ENT: Negative for injury, pain, and discharge, Neck: Negative for injury, pain, and swelling, Cardiovascular: Negative for chest pain, palpitations, and edema, Respiratory: Negative for shortness of breath, cough, wheezing, and pleuritic chest pain, Back: Negative for injury and pain, : Negative for injury, bleeding, discharge, and swelling, MS/Extremity: Negative for injury and deformity, Skin: Negative for injury, rash, and discoloration, Neuro: Negative for headache, weakness, numbness, tingling, and seizure, Psych: Negative for depression, anxiety, suicide ideation, homicidal ideation, and hallucinations, Allergy/Immunology: Negative for hives, rash, and allergies, Endocrine: Negative for neck swelling, polydipsia, polyuria, polyphagia, and marked weight changes, Hematologic/Lymphatic: Negative for swollen nodes, abnormal bleeding, and unusual bruising. Exam: 02:04 Constitutional: This is a well developed, well nourished patient who is awake, alert, mh7 and in no acute distress. Head/Face: Normocephalic, atraumatic. Eyes: Pupils equal round and reactive to light, extra-ocular motions intact. Lids and lashes normal. Conjunctiva and sclera are non-icteric and not injected. Cornea within normal limits. Periorbital areas with no swelling, redness, or edema. Neck: Trachea midline, no thyromegaly or masses palpated, and no cervical lymphadenopathy. Supple, full range of motion without nuchal rigidity, or vertebral point tenderness. No Meningismus. Chest/axilla: Normal chest wall appearance and motion. Nontender with no deformity. No lesions are appreciated. Cardiovascular: Regular rate and rhythm with a normal S1 and S2. No gallops, murmurs, or rubs. Normal PMI, no JVD. No pulse deficits. Respiratory: Lungs have equal breath sounds bilaterally, clear to auscultation and percussion. No rales, rhonchi or wheezes noted. No increased work of breathing, no retractions or nasal flaring. Abdomen/GI: Soft, non-tender, with normal bowel sounds. No distension or tympany. No guarding or rebound. No evidence of tenderness throughout. Back: No spinal tenderness. No costovertebral tenderness. Full range of motion. Skin: Warm, dry with normal turgor. Normal color with no rashes, no lesions, and no evidence of cellulitis. MS/ Extremity: Pulses equal, no cyanosis. Neurovascular intact. Full, normal range of motion. Neuro: Awake and alert, GCS 15, oriented to person, place, time, and situation. Cranial nerves II-XII grossly intact. Motor strength 5/5 in all extremities. Sensory grossly intact. Cerebellar exam normal. Normal gait. Psych: Awake, alert, with orientation to person, place and time. Behavior, mood, and affect are within normal limits. Vital Signs: 01:34 BP 129 / 64; Pulse 88; Resp 18 S; Temp 98(O); Pulse Ox 100% on R/A; Weight 114.31 kg bb (R); Height 5 ft. 8 in. (172.72 cm) (R); Pain 0/10; 04:37 BP 143 / 81; Pulse 71; Resp 22; Temp 98.3; Pulse Ox 100% on R/A; wm 01:34 Body Mass Index 38.32 (114.31 kg, 172.72 cm) bb MDM: 04:08 Differential diagnosis: Nonspecific abd pain, gastritis, pancreatitis, diverticulitis, 7 viral gastroenteritis, gastroenteritis. Data reviewed: vital signs, nurses notes, lab test result(s), amylase and lipase, CBC, electrolytes, radiologic studies, CT scan. Data interpreted: Pulse oximetry: on room air is 100 %. Interpretation: normal. Counseling: I had a detailed discussion with the patient and/or guardian regarding: the historical points, exam findings, and any diagnostic results supporting the discharge/admit diagnosis, lab results, radiology results, the need for further work-up and treatment in the hospital. Response to treatment: the patient's symptoms have mildly improved after treatment. 04:11 Patient medically screened. [facility] 09/01 02:01 Order name: CBC with Diff; Complete Time: 03:34 [facility] 09/01 02:01 Order name: CMP; Complete Time: 03:25 [facility] 09/01 02:01 Order name: Lipase; Complete Time: 03:34 [facility] 09/01 03:42 Order name: Amylase, Serum; Complete Time: 04:06 [facility] 09/01 03:57 Order name: Lipid Profile [facility] [place] 09/01 03:57 Order name: Fecal Leukocyte Stain [facility] [place] 09/01 02:07 Order name: Abdomen [facility] [place] 09/01 03:57 Order name: Ova and Parasites [facility] [place] 09/01 03:57 Order name: Stool Culture [facility] [place] 09/01 03:57 Order name: COVID-19/FLU A+B (Document "Date of Onset" if Symptomatic) la1 09/01 03:58 Order name: C.difficile GDH Ag [facility] [place] 09/01 11:05 Order name: Magnesium [facility] [place] 09/01 02:01 Order name: IV Saline Lock; Complete Time: 02:54 [facility] 09/01 02:01 Order name: Labs collected and sent; Complete Time: 02:54 [facility] 09/01 03:43 Order name: EKG; Complete Time: 03:43 [facility] 09/01 03:43 Order name: EKG - Nurse/Tech [facility] 09/01 04:01 Order name: NPO; Complete Time: 05:16 la1 Administered Medications: 04:10 Drug: Zofran (Ondansetron) 4 mg Route: IVP; Site: right antecubital; bb 04:12 Drug: morphine 2 mg {Note: RASS 0.} Route: IVP; Site: right antecubital; bb 04:13 Drug: Pepcid (famotidine) 20 mg Route: IVP; Site: right antecubital; bb Disposition Summary: 09/01/21 04:11 Hospitalization Ordered Hospitalization Status: Observation [facility] Provider: Osmany Yeung Melanie Condition: Stable [facility] Problem: new [facility] Symptoms: have improved [facility] Bed/Room Type: Standard [facility] Location: Telemetry/MedSurg (observation)(09/01/21 15:58) bd Room Assignment: [facility](09/01/21 15:58) Diagnosis - Pancreatitis 7 - Diarrhea, unspecified [facility] Forms: - Medication Reconciliation Form 7 - SBAR form [facility] Signatures: Dispatcher [employer] EDMS Ade Brar bd Katelyn Wright, RN RN Radha Kuo RN RN bb Víctor Hall, COLLECTION SUPERVISOR-C COLLECTION SUPERVISOR-Cla1 Aries Romano MD MD 7 Corrections: (The following items were deleted from the chart) 02:05 02:05 CT-ABD ordered. EDKY EDMS 04:22 04:15 SARS-COV-2 RT PCR+MOL.LAB.BRZ ordered. EDMS EDMS 05:16 04:11 Telemetry/MedSurg (observation) [facility] mw 05:16 04:11 7 mw 15:58 05:16 BR ER HOLD mw bd 15:58 05:16 ERHOLD- mw bd
--- NOTE | 2021-09-01 04:11 | ER ---
Nurse's Notes [facility] Name: Parish Matthews Age: 76 yrs Sex: Male : 1945 Arrival Date: 09/01/2021 Time: 01:21 Bed 24 Private MD: Diagnosis: Pancreatitis;Diarrhea, unspecified Presentation: 09/01 01:34 Chief complaint: Patient states: he has had diarrhea since Monday night greater than bb 10 times a day has taken Imodium with no relief. Coronavirus screen: At this time, the client does not indicate any symptoms associated with coronavirus-19. Ebola Screen: No symptoms or risks identified at this time. Initial Sepsis Screen: Does the patient meet any 2 criteria? No. Patient's initial sepsis screen is negative. Does the patient have a suspected source of infection? No. Patient's initial sepsis screen is negative. Risk Assessment: Do you want to hurt yourself or someone else? Patient reports no desire to harm self or others. Onset of symptoms was August 28, 2021. 01:34 Method Of Arrival: Ambulatory bb 01:34 Acuity: STACY 3 bb Triage Assessment: 01:37 General: Appears in no apparent distress. uncomfortable, Behavior is calm, cooperative. bb Pain: Complains of pain in abdomen. Neuro: Level of Consciousness is awake, alert, obeys commands, Oriented to person, place, time, situation. Cardiovascular: Capillary refill < 3 seconds Patient's skin is warm and dry. Respiratory: Airway is patent Respiratory effort is even, unlabored, Respiratory pattern is regular. GI: Abdomen is obese, Reports lower abdominal pain, upper abdominal pain, diarrhea. Derm: Skin is pink, warm \T\ dry. Musculoskeletal: Circulation, motion, and sensation intact. Historical: - Allergies: 01:37 antihisamines; bb - PMHx: 01:37 AV fistula to left arm; Dialysis; M,W,F; hernia repair 2 weeks ago; Pneumonia; Sleep bb Apnea; - Immunization history:: Moderna x 2. - Social history:: Smoking status: Patient denies any tobacco usage or history of. Screenin:15 Abuse screen: Denies threats or abuse. Denies injuries from another. Nutritional tw5 screening: No deficits noted. Tuberculosis screening: No symptoms or risk factors identified. Fall Risk Gait- Weak (10 pts.). Assessment: 05:15 General: Appears in no apparent distress. Behavior is calm, cooperative, appropriate tw5 for age. Neuro: No deficits noted. GI: Reports diarrhea. Vital Signs: 01:34 BP 129 / 64; Pulse 88; Resp 18 S; Temp 98(O); Pulse Ox 100% on R/A; Weight 114.31 kg bb (R); Height 5 ft. 8 in. (172.72 cm) (R); Pain 0/10; 04:37 BP 143 / 81; Pulse 71; Resp 22; Temp 98.3; Pulse Ox 100% on R/A; wm 01:34 Body Mass Index 38.32 (114.31 kg, 172.72 cm) bb ED Course: 01:21 Patient arrived in ED. kz 01:37 Triage completed. bb 01:37 Arm band placed on Patient placed in waiting room, Patient notified of wait time. bb 01:59 Aries Romano MD is Attending Physician. [facility] 02:22 Inserted saline lock: 20 gauge in right antecubital area, using aseptic technique. Blood collected. 02:33 Abdomen In Process Unspecified. EDMS 03:04 Notified ED physician of a critical lab result(s). creatine 11.5. tw5 04:04 Notified ED physician of a critical lab result(s). amalyse 276. tw5 04:09 Osmany Yeung MD is Hospitalizing Provider. 7 04:21 EKG done, by ED staff. 04:22 Safety checks: Door open/sign placed on door: yes. Bed in low position. Call light in wm reach. Side rails up X2. Head of bed lowered. personnel monitor on. Pulse ox on. NIBP on. 04:39 COVID swab sent to lab. Flu and/or RSV swab sent to lab. 05:15 Assisted to bedside commode. tw5 05:16 No provider procedures requiring assistance completed. Patient admitted, IV remains in tw5 place. Administered Medications: 04:10 Drug: Zofran (Ondansetron) 4 mg Route: IVP; Site: right antecubital; bb 04:12 Drug: morphine 2 mg {Note: RASS 0.} Route: IVP; Site: right antecubital; bb 04:13 Drug: Pepcid (famotidine) 20 mg Route: IVP; Site: right antecubital; carlito Outcome: 04:11 Decision to Hospitalize by Provider. 7 05:16 Admitted to ER Hold. Please see [facility] for further documentation. tw5 05:16 Condition: stable 05:16 Instructed on the need for admit. 16:54 Patient left the ED. ab2 Signatures: Dispatcher [employer] Radha Barney RN RN bb Holmes, Maurice, MD MD [facility] Renetta Rice Tiffany 5 Jethro Caldera ab2 Shi Acuna Corrections: (The following items were deleted from the chart) 02:23 02:22 Inserted saline lock: 20 gauge in right antecubital area, using aseptic wm technique. wm
--- NOTE | 2021-09-01 04:52 | P.HP ---
Certification for Inpatient Patient admitted to: Observation With expected LOS: <2 Midnights Patient will require the following post-hospital care: None Practitioner: I am a practitioner with admitting privileges, knowledge of patient current condition, hospital course, and medical plan of care. Services: Services provided to patient in accordance with Admission requirements found in Title 42 Section 412.3 of the Code of Federal Regulations Patient History Date of Service: 09/01/21 Reason for admission: Pancreatitis, diarrhea History of Present Illness: 76-year-old male with history of ESRD on HD MWF, GERD, hypertension, hyperlipidemia, restless leg syndrome and sleep apnea presents emergency department for diarrhea. Patient reports ongoing diarrhea over the course of last 3 days reports 10 episodes of diarrhea today. Patient was evaluated in the emergency department today his labs were significant for elevated lipase amylase his CT without contrast was negative for acute findings. Patient does not have a gallbladder does not admit to drinking alcohol triglycerides are within normal limits, he does have some mild abdominal pain but no epigastric tenderness. Patient does need to have dialysis today, still having significant quantities of diarrhea has had 4 bowel movements in the ER today. ED provider wishes to admit to observation for diarrhea, suspected pancreatitis. Stool studies including C. difficile pending. Allergies Antihistamines - Alkylamine Adverse Reaction (Mild, Verified 07/19/11 03:29) Shortness of breath Home Medications: Albuterol Sulfate [Proventil Hfa] 1 puff IH TIDP PRN 04/16/18 Famotidine [Pepcid*] 20 mg PO DAILY 04/16/18 Folic Acid/Vitamin B Comp W-C [Nephro-Krystina Tablet] 1 tab PO DAILY 04/16/18 Rosuvastatin [Crestor*] 10 mg PO BEDTIME 04/16/18 allopurinoL [Zyloprim*] 75 mg PO BEDTIME 04/16/18 Acetaminophen [Tylenol] 325 mg PO BIDP PRN 09/10/19 Amlodipine [Norvasc*] 7.5 mg PO BEDTIME 09/10/19 Docusate [Colace Cap*] 1 cap PO BEDTIME 09/10/19 Fluticasone [Flonase 50MCG Nasal [place]*] 1 puff IH BID 09/10/19 Fluticasone/Vilanterol [Breo Ellipta 100-25 Mcg INH] 1 puff IH DAILY 09/10/19 Lanthanum Carbonate 1,000 mg PO TIDWM 09/10/19 Losartan Potassium [Cozaar*] 50 mg PO SEECOM 09/10/19 Losartan Potassium [Cozaar] 25 mg PO BEDTIME 09/10/19 Omeprazole 20 mg PO BIDP PRN 09/10/19 Ropinirole HCl [Requip] 2 mg PO BEDTIME 09/10/19 Sevelamer Carbonate 3,200 mg PO TIDWM 09/10/19 - Past Medical/Surgical History Diabetic: No -: KIDNEY DISEASE - FOCAL SEGMENTAL GLOMERULUS SCLEROSIS -: CPAP - SLEEP APNEA 2004 -: HEARING AIDES 2009 -: PNEUMONIA -: Gout -: ESRD/dialysis -: hyperlipidemia -: restless leg syndrome -: HTN -: 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 In-home is reported to be sufficient. - Social History Smoking Status: Never smoker Alcohol use: Yes CD- Drugs: No Caffeine use: Yes Place of Residence: Home Review of Systems 10-point ROS is otherwise unremarkable Gastrointestinal: Abdominal Pain, Diarrhea Physical Examination - Physical Exam General: Alert, In no apparent distress, Obese HEENT: Atraumatic, PERRLA, Mucous membr. moist/pink, EOMI, Sclerae nonicteric Neck: Supple, 2+ carotid pulse no bruit, No LAD, Without JVD or thyroid abnormality Respiratory: Clear to auscultation bilaterally, Normal air movement Cardiovascular: Regular rate/rhythm, Normal S1 S2 Gastrointestinal: Normal bowel sounds, Hyperactive Musculoskeletal: No tenderness Integumentary: No rashes Neurological: Normal speech, Normal strength at 5/5 x4 extr, Normal tone, Normal affect Lymphatics: No axilla or inguinal lymphadenopathy - Studies Laboratory Data (last 24 hrs) 09/01/21 02:14: Triglycerides 106, Cholesterol 154, HDL Cholesterol 89 H, Cholesterol/HDL Ratio 1.73 09/01/21 02:14: Amylase 276 H* 09/01/21 02:14: Sodium 134 L, Potassium 4.0, BUN 76 H, Creatinine 11.50 H*, Glucose 89, Total Bilirubin 0.5, AST 22, ALT 53, Alkaline Phosphatase 299 H, Lipase 1246 H 09/01/21 02:14: WBC 6.3, Hgb 12.5 L, Hct 38.5 L, Plt Count 224 Assessment and Plan - Plan Assessment: Elevated lipase, amylase mild pancreatitis Diarrhea ESRD on HD MWF Hypertension Hyperlipidemia Plan: Elevated lipase, amylase mild pancreatitis: With very mild/minimal pain localized to the periumbilical region rather than the epigastric region denies worsening pain with eating has not had any vomiting. Will allow clear liquid diet as patient has had significant amounts of diarrhea. And lipase, lipid panel within normal limits, patient denies use of alcohol, no gallbladder present. Diarrhea: Studies including C. difficile ordered, reports 10 episodes of diarrhea today including 4 during his ER stay. White blood cell count within normal limits, he does report that his also has similar symptoms and is at home. ESRD on HD MWF: Nephrology consulted Hypertension: Continue home medication Hyperlipidemia:Continue home medication DVT PPX: Heparin full Code status:full Discharge Plan: Home Plan to discharge in: 24 Hours - Advance Directives Does patient have a Living Will: Yes Does patient have a Durable POA for Healthcare: No - Code Status/Comfort Care Code Status Assessed: Yes (full code) Critical Care: No Time Spent Managing Pts Care (In Minutes): 55
[2021-09-01 05:39] LABS: SARS-COV-2 RT PCR NEGATIVE (NEGATIVE)
[2021-09-01] MEDS ORDERED: ONDANSETRON 4 MG/2 ML VIAL IV PRN (05:50)
[2021-09-01 05:57] VITALS: BMI 23.1
[2021-09-01] MEDS ORDERED: HEPARIN 5000 UNIT/ML 1 ML VIAL ONE (09:40)
[2021-09-01] MEDS: HEPARIN 5000 UNIT/ML 1 ML VIAL SQ SCH ×2 (09:45→23:15)
--- NOTE | 2021-09-01 10:57 | EKG ---
Test Date: 2021-09-01 Test Time: 04:08:29 Nutrition Services Aide: MEASUREMENT RESULTS: Intervals: Rate: 73 [place]: 160 QRSD: 150 QT: 428 QTc: 471 [place]: P: 66 OH: 160 QRS: 36 T: 35 INTERPRETIVE STATEMENTS: Sinus rhythm with frequent premature ventricular complexes in a pattern of bigeminy Right bundle branch block Abnormal ECG Compared to ECG 04/17/2018 07:42:56 Ventricular premature complex(es) now present Electronically Signed On 09-01-21 10:57:08 CDT by Kade Merrill
--- NOTE | 2021-09-01 12:04 | RAD REPORT ---
EXAM DESCRIPTION: CT - Abdomen Pelvis Wo Contrast - 09/01/2021 6:41 am CLINICAL HISTORY: 76 years, Male, Diarrhea COMPARISON: 04/10/2018. TECHNIQUE: Multiple transaxial tomograms of the abdomen and pelvis were performed from the lung base s to the symphysis pubis 5 mm slice thickness at 5 mm interval reconstruction, without administration of IV and oral contrast. Multiplanar reformats in the sagittal and coronal plane were generated and reviewed. This exam was performed according to our departmental dose-optimization protocol, which inc ludes automated exposure control, adjustment of the mA and/or kV according to patient size and/or use of iterative reconstruction technique. FINDINGS: The lack of IV and oral contrast limits evaluation of solid organs, subtle lesions cannot be excluded. The lung bases demonstrate minimal dependent atelectatic changes and elevation of the ri ght hemidiaphragm. There are coronary artery calcifications. Bilateral gynecomastia. Grossly the unop acified liver, pancreas, spleen and adrenal glands demonstrate to be within normal limits, no signifi cant focal lesions were identified. The gallbladder was not visualized suggesting previous cholecys tectomy. There is no significant intrahepatic biliary duct dilatation. The kidneys demonstrate grossl y unremarkable. There is no evidence for nephrolithiasis and/or hydronephrosis. There is a mid pole right renal cyst measuring 2.9 x 2.5 cm on image 38. There is a upper pole left renal cyst measuring 1.5 x 1.3 cm on image 44 the aorta. Grossly the unopacified stomach, small bowel and large bowel demonstrate to be within normal limits. There is no evidence for bowel dilatation/or free air. There is mild fecal stasis. There is a battery reservoir within the right lower quadrant of a neurostimulat or The urinary bladder demonstrate to be within normal limits. The prostate gland is unremarkable. Th e aorta demonstrate minimal atherosclerotic disease extending into the aortic bifurcation. There is no retroperitoneal lymphadenopathy. There is no evidence for ascites. The bone windows demonstrate mild diffuse bony osteopenia. Minimal degenerative changes throughout the lumbar spine as well as de generative changes bilateral hip joints. IMPRESSION: No evidence of nephrolithiasis and/or hydronephrosis. Mild fecal stasis. Bilateral renal cysts. Coronary artery calcifications. Bilateral gynecomastia. Electronically signed by: Michael Ochoa MD 09/01/2021 3:24 AM CDT Due to temporary technical issues with the PACS/Fluency reporting system, reports are being signed by the in house radiologist without review as a courtesy to ensure prompt reporting. The interpreting r adiologist is fully responsible for the content of the report.
--- NOTE | 2021-09-01 16:29 | CON ---
Date of Consultation: 09/01/2021 Reason For Consultation: Elevated BUN and creatinine. History Of Present Illness: This is a pleasant 76-year-old gentleman, well known to me from dialysis with significant past medical history of end-stage renal disease, on hemodialysis, Monday, Monday, Monday through left arm AV fistula at [facility], last dialysis was Monday, hypertension, hyperlipidemia, CAD, secondary hyperparathyroidism, gout, the patient was in his regular state of health. Apparently according to him, on the weekend, he started to have abdominal pain with diarrhea. He and his even though that they ate different food, watery diarrhea multiple times. He went to dialysis on Monday. At that time, he did not gain any fluid, tolerated the dialysis with ultrafiltration 2.5 L. His diarrhea continued to get worse. For that reason, he presented to the ER. In the ER, a primary workup showed elevation in lipase and amylase. For that reason, the patient was treated as pancreatitis. CT for abdomen was done, still pending. Past Medical History: Includes; 1. End-stage renal disease, on hemodialysis Monday, Monday, Monday at [facility]. 2. Hypertension. 3. Hyperlipidemia. 4. CAD. 5. Secondary hyperparathyroidism. 6. Anemia. Allergies: TO ANTIHISTAMINE. Past Surgical History: Includes; 1. AV fistula creation back in 2012. 2. Knee surgery in 2011 on the right and in 2008, on the left multiple orthopedic surgeries. 3. Cholecystectomy. 4. TURP back in 2012. 5. Hernia repair back in 2018. Family History: Positive for hypertension. Home Medications: Include allopurinol, rosuvastatin, Nephro-Krystina, Renvela, lanthanum, Pepcid, omeprazole, ropinirole, nasal spray. Review of Systems: Head and Neck: No red eye. No ear pain. GI: Has nausea, vomiting. Has diarrhea. : No polyuria. No dysuria. No hematuria. Plastic Eye Technician: Not applicable. Respiratory: No shortness of breath. Cardiovascular: No chest pain. Endocrine: No polydipsia. Skin: No rash. Neuro: Has generalized weakness. No fall. Musculoskeletal: Generalized weakness. Endocrine: No polydipsia. Skin: No rash. Physical Examination: Vital Signs: When I saw the patient; blood pressure 115/62, pulse of 66, afebrile. Chest: Clear to auscultation. Heart: S1, S2. Regular. Abdomen: Mild tenderness on the epigastric area. No guarding or rebound. Extremities: No edema. Neurological: Alert, oriented x3. No focal. No tremor. Laboratory Data: WBC 6.3, H and H 12.5/38.5, platelets 224. Sodium 134, potassium 4, bicarb 23, BUN 76, creatinine 11.5, calcium 9.1, alkaline phosphatase 299, amylase 276, lipase 1246, magnesium of 3. Current Medications: The patient on include heparin. Assessment And Plan: 1. End-stage renal disease, normal volume with hyponatremia. I am going to place the patient on his regular dialysis, the patient due for dialysis today. The patient looked to me euvolemic to the dry side, so I am not going to remove any fluid and we will monitor. 2. Hyponatremia, depletion, secondary to renal failure and GI loss, going to be corrected with dialysis. 3. Secondary hyperparathyroidism. The patient has currently poor intake. We will hold on any binder. 4. Pancreatitis. We will follow up CT and we will follow up with primary. 5. Hypertension, controlled, optimal. Continue current treatment. 6. Anemia of chronic kidney disease. Hemoglobin above 11.5. No need for SAQIB. 7. Gout. We will follow up the patient. Time spent examining the patient [id number], discussing the case with the patient and the sister by bedside, discussing the case with the business team leader including dialysis nurse from her unit and the nursing staff in the unit, discussing the case with the hospitalist and Cardiology 45 minutes. JORGE Voice ID: [id number] Report ID: [id number] MELVIN
[2021-09-02 00:24] VITALS: O2SAT 95
[2021-09-02 03:55] LABS: Absolute Lymphocytes (CBC) 1.1 K/uL (0.7-4.9); Lymphocytes % 24.7 % (15.3-44.8); MPV 6.6 fL (7.6-11.3); RBC Red Blood Cell Count 3.21 M/uL (4.33-5.43)
[2021-09-02 04:10] LABS: Bilirubin Total 0.4 mg/dL (0.2-1.0); Phosphorus 3.5 mg/dL (2.5-4.9); Protein, Total 6.6 g/dL (6.4-8.2)
[2021-09-02] MEDS: HEPARIN 5000 UNIT/ML 1 ML VIAL SQ SCH (08:52)
--- NOTE | 2021-09-02 12:13 | P.DS ---
Admission Date: 09/01/21 Discharge Date: 09/02/21 Disposition: ROUTINE DISCHARGE Discharge Condition: GOOD Reason for Admission: Pancreatitis, diarrhea Brief History of Present Illness: 76-year-old male with history of ESRD on HD MWF, GERD, hypertension, hyperlipidemia, restless leg syndrome and sleep apnea presents emergency department for diarrhea. Patient reports ongoing diarrhea over the course of last 3 days reports 10 episodes of diarrhea today. Patient was evaluated in the emergency department today his labs were significant for elevated lipase amylase his CT without contrast was negative for acute findings. Patient does not have a gallbladder does not admit to drinking alcohol triglycerides are within normal limits, he does have some mild abdominal pain but no epigastric tenderness. Patient does need to have dialysis today, still having significant quantities of diarrhea has had 4 bowel movements in the ER today. ED provider wishes to admit to observation for diarrhea, suspected pancreatitis. Stool studies including C. difficile pending. Hospital Course: His hospital course was uneventful and he had resolution of diarrhea. He was deemed stable for discharge to continue outpatient dialysis as per eligibility consultant on Monday, Monday, Monday. His lipase level was also significantly much better compared to on admission. Vital Signs/Physical Exam: Temp Pulse Resp BP Pulse Ox 97.1 F 54 19 124/59 L 96 09/02/21 04:00 09/02/21 04:00 09/02/21 04:00 09/02/21 04:00 09/02/21 04:00 General: Alert, Oriented x3 HEENT: Atraumatic, Normocephalic Neck: Supple Respiratory: Normal air movement Cardiovascular: Regular rate/rhythm, Normal S1 S2 Gastrointestinal: Soft and benign Musculoskeletal: No swelling Neurological: Normal strength at 5/5 x4 extr, Cranial nerves 3-12 intact Laboratory Data at Discharge: WBC 4.5 K/uL (4.3-10.9) D 09/02/21 03:08 Hgb 11.0 g/dL (13.6-17.9) L 09/02/21 03:08 Hct 33.0 % (39.6-49.0) L 09/02/21 03:08 Plt Count 193 K/uL (152-406) 09/02/21 03:08 Sodium 138 mmol/L (136-145) 09/02/21 03:08 Potassium 4.0 mmol/L (3.5-5.1) 09/02/21 03:08 BUN 45 mg/dL (7-18) H D 09/02/21 03:08 Creatinine 7.94 mg/dL (0.55-1.3) H* D 09/02/21 03:08 Glucose 86 mg/dL (74-106) 09/02/21 03:08 Phosphorus 3.5 mg/dL (2.5-4.9) 09/02/21 03:08 Magnesium Cancelled 09/01/21 Unknown Total Bilirubin 0.4 mg/dL (0.2-1.0) 09/02/21 03:08 AST 20 U/L (15-37) 09/02/21 03:08 ALT 41 U/L (12-78) 09/02/21 03:08 Alkaline Phosphatase 234 U/L (45-117) H 09/02/21 03:08 Triglycerides 106 mg/dL (<150) 09/01/21 02:14 Cholesterol 154 mg/dL (<200) 09/01/21 02:14 HDL Cholesterol 89 mg/dL (40-60) H 09/01/21 02:14 Cholesterol/HDL Ratio 1.73 09/01/21 02:14 Amylase 276 U/L (25-115) H* 09/01/21 02:14 Lipase 376 U/L (73-393) 09/02/21 03:08 Home Medications: Albuterol Sulfate [Proventil Hfa] 1 puff IH TIDP PRN 04/16/18 Famotidine [Pepcid*] 20 mg PO DAILY 04/16/18 Folic Acid/Vitamin B Comp W-C [Nephro-Krystina Tablet] 1 tab PO DAILY 04/16/18 Rosuvastatin [Crestor*] 10 mg PO BEDTIME 04/16/18 allopurinoL [Zyloprim*] 75 mg PO BEDTIME 04/16/18 Fluticasone [Flonase 50MCG Nasal [place]*] 1 puff IH BID 09/10/19 Lanthanum Carbonate 1,000 mg PO TIDWM 09/10/19 Omeprazole 40 mg PO BIDP PRN 09/10/19 Ropinirole HCl [Requip] 6 mg PO BEDTIME 09/10/19 Sevelamer Carbonate 3,200 mg PO TIDWM 09/10/19 Duloxetine [Cymbalta *] 20 mg PO DAILY 09/01/21 Furosemide [Lasix*] 40 mg PO DAILY 09/01/21 Magnesium Citrate 200 mg PO DAILY 09/01/21 Zinc 50 mg PO DAILY 09/01/21 Diet: Renal Activity: Ad jihan Followup: Sushil Abreu MD [Primary Care Provider] -
[2021-09-02 13:10] VITALS: BP 155/86; TEMP 97.8
[2021-09-02 13:30] LABS: C.diff Antigen/Toxin Ag neg : Tox neg (NEG : NEG)
[2021-09-02 13:33] LABS: Urine Appearance CLEAR (Clear); Urine Bilirubin NEGATIVE (Negative); Urine Blood TRACE (Negative); Urine Color YELLOW (Yellow); Urine Glucose NEGATIVE (Negative); Urine Protein 2+ (Negative); Urine Urobilinogen 0.2 mg/dL (0.2-1.0); Urine pH 6.5 (5.0-7.0)
[2021-09-02 13:35] LABS: Urine Microscopic Reflex ORDER UMIC
[2021-09-02 14:31] LABS: Urine Bacteria <20 /HPF (NONE SEEN); Urine RBC NONE SEEN /HPF (NONE SEEN); Urine Urothelial Cells <5 /HPF (NONE SEEN)
--- NOTE | 2021-09-02 15:12 | PN ---
Date of Progress Note: 09/02/2021 Subjective: The patient was admitted with possible pancreatitis, gastroenteritis. The patient today feeling better. Status post dialysis yesterday, tolerated well. Diarrhea has been stopped. No abd ominal pain. Tolerated oral diet. Physical Examination: Vital Signs: Blood pressure 124/59, pulse of 54, afebrile. Chest: Clear to auscultation. Heart: S1, S2. Regular. Systolic murmur. Abdomen: Soft, nontender. No guarding or rebound. Extremities: No edema. Neurological: Alert, oriented x3. No focal. Laboratory Data: WBC 4.5, H and H . Sodium 138, potassium 4, bicarb 26, BUN 45, creatinine 7.9 , calcium 8.7, phosphorus 3.5, albumin 3. Repeated lipase down to 376. C diff still pending. Current Medications: The patient on include Zofran. Assessment And Plan: 1.End-stage renal disease, normal volume, status post dialysis yesterday, recovered. Continue dialy sis per schedule Monday, Monday, Monday. The patient cleared from the Renal standpoint for discha rge planning. We will schedule dialysis as outpatient. 2.Hypertension, controlled, optimal. Keep holding blood pressure medications for the time being. 3.Gastroenteritis. We will follow up with hospitalist. Again, the patient cleared from the Renal s tandpoint for discharge planning. 4.Anemia of chronic kidney disease. No need for SAQIB. 5.Hyponatremia, depletional, resolved with dialysis. JORGE Voice ID: [id number] Report ID: [id number]
== END 2021-09-02 14:22 | disposition home or self-care (01) ==
LOC: ER 01:16 → ERHOLD 04:40 → 2ND 16:32
PROVIDERS: ADMIT Internal Medicine Nephrology; ATTEND Internal Medicine Nephrology
DX: K52.9 Noninfective gastroenteritis and colitis, unspecified (principal); I12.0 Hypertensive chronic kidney disease with stage 5 chronic kidney disease or end stage renal disease; N18.6 End stage renal disease; Z99.2 Dependence on renal dialysis; D63.1 Anemia in chronic kidney disease; N25.81 Secondary hyperparathyroidism of renal origin; E78.5 Hyperlipidemia, unspecified; E87.1 Hypo-osmolality and hyponatremia; E86.9 Volume depletion, unspecified; K21.9 Gastro-esophageal reflux disease without esophagitis; I25.10 Atherosclerotic heart disease of native coronary artery without angina pectoris; G25.81 Restless legs syndrome; M10.9 Gout, unspecified; G47.30 Sleep apnea, unspecified; Z99.81 Dependence on supplemental oxygen; Z79.899 Other long term (current) drug therapy; Z88.8 Allergy status to other drugs, medicaments and biological substances; Z90.49 Acquired absence of other specified parts of digestive tract; Z90.79 Acquired absence of other genital organ(s); Z20.822 Contact with and (suspected) exposure to COVID-19
CPT/HCPCS: 93005; 85025 ×2; 36415 ×2; 82150; 83735; 80061; 80069; 87324; 83690 ×2; 80053 ×2; 87449; 0240U; 74176; 90935; 96375; 96374; 99285; J1644 ×3; J2270; J2405; G0378 ×3; 81003; 81015

== ENCOUNTER 2022-02-27 22:46 | Inpatient (IN) | payer OTHER ==
--- OUTSIDE RECORDS SUMMARY | 2022-02-27 22:51 | XMS REPORT | Continuity of Care Document ---
:1945 Author Organization [facility] t Address [address] [place] [address] Care Team Providers Name Role Phone Asked, No Pcp Primary Care Physician Unavailable Sushil Kent Attending Clinician Unavailable Rene Felder Attending Clinician Unavailable Sushil Kent Admitting Clinician Unavailable Payers Payer Name Policy Type Policy Number Effective Date Expiration Date S ource Problems Condition Condition Condition Status Onset Resolution Last Treating Co mments Source Name Details Category Date Date Treatment Clinician Date ESRD (end ESRD (end Disease Active Overview: [facility] stage stage 1-[address] renal renal 00:00: g of this Hospita disease) disease) 00 note l might be different from the original. Added automatic ally from request for surgery [id number] Allergies, Adverse Reactions, Alerts Allergy Allergy Status Severity Reaction(s) Onset Inactive Treating Comm ents Source Name Type Date Date Clinician Antihist DA Active MO 2020-0 [facility] am[facility] - 2-21 Clear Alkylami 00:00: Duque ne 00 [facility] Antihist DA Active MO CONGESTION 2020-0 [facility] amines - 2-21 Clear Alkylami 00:00: Duque ne 00 [facility] No Known DA Active U 2020-0 [facility] Allergie 2-20 Clear s 00:00: Duque 00 [facility] No Known DA Active U [facility] Allergie 2-20 Clear s 00:00: Duque 00 [facility] Diphenhy Propensi Active Other (See "I GET Me thodi dramine ty to Comments) 1-[address] Hcl adverse 00:00: UP" PER Hospita reaction 00 PT l s to drug Polyethy Propensi Active Other (See "HURTS Me thodi saad ty to Comments) 1-[address] Glycol adverse 00:00: HELL" PER Hospit a 1450(Bul reaction 00 PT l k) s to drug Family History Family Member Diagnosis Comments Start Date Stop Date Source Natural father [facility] mother [facility] mother [facility] Social History Social Habit Start Date Stop Date Quantity Comments Source History of Chews Tobacco [facility] use Hospital History [facility] Drinks History [facility] Alcohol intake 2018-07-10 2018-07-10 Current drinker [facility] 00:00:00 00:00:00 of alcohol Hospital (finding) History SDOH 2018-06-29 2018-06-29 1 [facility] Alcohol Frequency 00:00:00 00:00:00 [facility] l Alcohol Comment 2018-05-01 2018-05-01 ONCE A MONTH [facility] 00:00:00 00:00:00 Hospital Tobacco use and 2018-05-01 2018-05-01 Former smokeless [facility] exposure 00:00:00 00:00:00 tobacco user Hospital Sex Ass[birth year] At [birth year] [facility] 00:00:00 00:[facility]:00 [facility] Smoking Status Start Date Stop Date Source Never smoked tobacco [facility] Medications Ordered Filled Start Stop Current Ordering Indication Dosage Frequency Signature Comments Components Source Medication Medication Date Date Medication? Clinician (SIG) Name Name vit B Yes 1{tbl} QD Take 1 [facility] complex-vit 2-[address] gong 14:20: mouth Hospita C-folic 28 every l acid morning. (NEPHRO-VIT E OTC) 0.8 mg tablet albuterol Yes 2{puff} Q24H Inhale 2 M ethodi (PROAIR 2-[address] HFA,PROVENT 14:20: daily as Ho spita [place] 28 needed for l HFA,VENTOLI shortness N HFA) 90 of breath. mcg/actuati on inhaler carvedilol Yes 12.5mg Take 12.5 [facility] (COREG) 2-[address] 12.5 MG 14:20: mouth Hospita tablet 28 daily. PT l TAKES AT NIGHT sevelamer Yes 800mg Take 800 Met [facility] (RENVELA) 2-[address] 800 mg 14:20: mouth with Hospi ta tablet 28 snacks. l docusate Yes 100mg Q.[id number] Take 100 [facility] sodium 2-[id number] (COLACE) 14:20: 3D mouth 3 Hospit a 100 MG 28 (three) l capsule times a day. lactulose Yes 10g QD Take 10 g Met [facility] 10 gram/15 2-[address] mL (15 mL) 14:20: daily. Hospi ta solution 28 l UNABLE TO 2018-0 Yes 120mL QD Take 120 Met [facility]odi FIND 2-[address] 14:20: mouth Hospita 28 every l morning. Liquid Z Radical Supplement 1/2 cup (120 ml) UNABLE TO 2019-0 Yes 2{capsu Q.5D Take 2 Met hodi FIND 2-08 le} capsules st 14:20: by mouth 2 Hospita 28 (two) l times a day. Cleanser Kidney Supplement (in the morning and in the evening) losartan Yes 25mg QD Take 25 mg Met hodi (COZAAR) 25 2-[address] MG tablet 14:20: daily. Hospit a 28 l sevelamer 2017-05 Yes TAKE 800 Meth heike (RENVELA) 2-[address] 800 mg 00:00: TABLETS Hospita tablet 00 (3,200 MG) l BY MOUTH 3 TIMES DAILY WITH MEALS allopurinol 2017-05 Yes 150mg QD Take 150 M ethodi (ZYLOPRIM) 1-[address] 300 MG 00:00: mouth Hospita tablet 00 daily. l Takes 300 mg 0.5 TAB. (150 mg) rosuvastati 2017-05 Yes TAKE 1 Meth heike n (CRESTOR) 1-[address] 10 MG 00:00: MOUTH Hospita tablet 00 DAILY (AT l BEDTIME) famotidine 2017- Yes TAKE 1 Metho di (PEPCID) 20 1-[address] MG tablet 00:00: MOUTH Hospita 00 DAILY (AT l BEDTIME) Procedures This patient has no known procedures. Plan of Care Planned Activity Planned Date Details Comments Source Future Scheduled 2022-02-16 HEPATITIS B VACCINES [facility] Test 22:07:32 (1 of 3 - 3-dose series) [code = HEPATITIS B VACCINES (1 of 3 - 3-dose series)] Future Scheduled 2022-02-16 COVID-19 VACCINE (#1) [facility] Test 22:07:32 [code = COVID-19 VACCINE (#1)] Future Scheduled 2022-02-16 COLONOSCOPY SCREENING [facility] Test 22:07:32 [code = COLONOSCOPY SCREENING] Future Scheduled 2022-02-16 SHINGLES VACCINES (1 [facility] Test 22:07:32 of 2) [code = SHINGLES VACCINES (1 of 2)] Future Scheduled 2022-02-16 65+ PNEUMOCOCCAL Method[facility] Test 22:07:32 VACCINE (1 - PCV) [code = 65+ PNEUMOCOCCAL VACCINE (1 - PCV)] Future Scheduled 2022-02-16 INFLUENZA VACCINE [facility] Test 22:07:32 [code = INFLUENZA VACCINE] Encounters Start End Encounter Admission Attending Care Care Encounter Source Date/Time Date/Time Type Type Clinicians Facility Department ID 2021-11-11 Outpatient Marva [facility] [id number] Common 13:29:02 a, Sushil [facility] 2021-11-08 Outpatient [facility] [id number] Common 10:23:02 [facility] 2021-10-19 Outpatient [facility] [id number] Common 13:40:02 [facility] 2021-08-26 Outpatient [facility] [id number] Common 13:43:03 [facility] 2019-07-12 Inpatient DuRene [facility] [id number] [facility] 11:00:00 82 [facility] 2019-08-06 2019-08-06 Outpatient DuRene [facility] [id number] [facility] 08:00:00 08:00:00 80 [facility] 2019-07-30 2019-07-30 Outpatient Rene Felder [facility] [id number] [facility] 10:00:00 10:00:00 51 [facility] Results Test Description Test Time Test Comments Results Result Comments Source SARS-COV2/RT-PCR ([facility]) 2019-09-11 00:29:00 Test Item Value Reference Range Interpretation Comme nts SARS-COV2/RT-PCR (test code = 4446318) Not Detected Not Detected, N egative SARS-COV-2 PERFORMING LAB (test code = [facility] 8396537) Negative results do not preclude SARS-CoV-2 infection [...] of the Act.Fact Sheet for Healthcare Pro viders:https://www.Bra[employer]way.eGifter/Documents/Xpert%20Xpress%20SARS%20CoV-2/Fact%20Sh eets/302-5702%94QDOS-TAB-7%20HEALTHCARE%20PROVIDERS%20FACT%20SHEET.pdfFact Sheet for Healthcare Patients:https://www.[employer] id.eGifter/Documents/Xpert%20Xpress%20SARS%20CoV-2/Fact%20Sheets/302-3801%20SARS-COV -2%20PATIENT%20FACT%20SHEET.pdfPerforming Laboratory:[facility] [place] [address]- [place] GASTRIC [id number] 09:09:00 FAX: Rene Felder MD [phone] Wesley: St: REG FAX: Sushil Pepe [phone] Name: KANU NORWOOD [facility] [place] : 1945 Age/S: 74/M [address] [place] [address] Unit #: [id number] Loc: [facility] [id number] Phys: Rene Felder MD Acct: [id number] Dis Date: Status: REG CLI PHONE #: [phone] Exam Date: 08/06/2019 0908 FAX #: [phone] Reason: R10.9 ABD CRAMPING, R14.0 BLOATING EXAMS: CPT CODE: [id number] NM GASTRIC EMPTYING 06768 PROCEDURE: NUCLEAR MEDICINE GASTRIC EMPTYING STUDY INDICATION: Abdominal pain, abdominal cramping, belching COMPARISON: None. TECHNIQUE: 1 mCi labeled sulfur colloid administered in a semisolid meal. Dynamic imaging was performed in anterior projection. Computer analysis obtained. FINDINGS: The stomach demonstrates visible emptying. 50% emptying at 41.7 minutes, normal less than 90 minutes. IMPRESSION:Normal gastric emptying. SL: [id number] at 0909 Reported and signed by: Sonia Simms D.O. CC: Rene Felder MD; Sushil Kent MD Technologist: DIDIER LeeT (N)(CT); ... Trnscrd Date/Time/By: 08/06/2019 (908) : By: [email or web address] Orig Print D/T: S: 08/06/2019 (912) PAGE 1 Signed ReportSURGICAL [id number] 11:38:00 RUN DATE: 08/04/19 [place] [facility] *LIVE* PAGE 1 RUN TIME: 1138 Specimen Inquiry RUN USER: INTERFACE --PATIENT: KANU NORWOOD LOC: [facility] U #: [id number] AGE/SX: 74/M ROOM: RE07/12/19REG DR: Rene Felder MD : [birth year] BED: DIS: STATUS: HADLEY SANTIZO TLOC: SPEC #: [id number] RECD: 07/12/19837 STATUS: RENAN REQ#: [id number] KAMRAN: 07/12/19 [facility] DR: Rene Felder MD ENTERED: 08/03/19 SP TYPE: SURG SPEC OTHRDR: Sushil Kent MD ORDERED: GM LEVEL 4 CODES: [id number] - SMALL INTESTINE COPIES TO: Rene Felder MD [address] [place], [place] [address] [place] [address] Sushil Kent MD [address] [place], [place] [address] PROCEDURES: GM LEVEL 4 (Incomplete) TISSUES: 1. [...] CONTINUED ON NEXT PAGE RUN DATE: 08/04/[address] [facility] *LIVE* PAGE 2 RUN TIME: 1138 Specimen Inquiry RUN USER: INTERFACE SPEC #: [id number] PATIENT: KANU NORWOOD #[id number] (Continued) PRE- OP DIAGNOSIS GERD, screening colon cancer REVIEWED BY: MARIANA Signed SIGNATURE ON FILE Dimitris Smith Lynnette DUFFY 08/04/19 1138 END OF REPORT - CT ABD PELVIS W/O [id number] 10:38:00 Name: KANU NORWOOD [facility] [place] : 1945 Age/S: 74 / M [address] [place] [address] Unit #:[id number] Loc: [place] [address] Phys: Rene Felder MD Acct: [id number] Dis Date: Status: REG CLI PHONE #: [phone] Exam Date: 07/30/2019 1001 FAX #: [phone] Reason: R10.9, ABDOMINAL CRAMPING. BLOATING. EXAMS: CPT CODE: [id number] CT ABD PELVIS W/O CONT 82151 PROCEDURE: CT abdomen and pelvis without contrast. Reconstruction images. INDICATION: R10.9, ABDOMINAL CRAMPING. BLOATING.. TECHNIQUE:GI CONTRAST: 10 mL Gastrografin diluted in water. [...] Liver parenchyma appears unremarkable. Gallbladder has been surgicallyremoved. No biliary dilatation. Pancreas, spleen, adrenal glands appear unremarkable. Severe bilateral renal parenchymal atrophy with small kidneys. Multiple bilateral renal cysts. No hydronephrosis. Findings compatible with severe renal parenchymal disease. Possible nonfunctioning kidneys. BOWEL: Normal appendix identified in the right lower quadrant. Colonic diverticulosis identified. Diverticula are most numerous in the left colon and sigmoid colon. No acute inflammation. No obstruction or ileus.Bowel is otherwise unremarkable. PERITONEUM: No free intraperitoneal fluid or air. No ventral wall defects. Postsurgical changes in the ventral wall the pelvis. RETROPERITONEUM: No adenopathy. No vascular aneurysm. Moderate to severe vascular wall calcifications identified. PAGE 1 Signed Report (CONTINUED) Name: KANU NORWOOD [facility] : 1945 Age/S: 74 / M [address] [place] [address] Unit #: [id number] Loc: [place] [address] Phys: Rene Felder MD Acct: [id number] Dis Date: Status: REG CLI PHONE #: [phone] Exam Date: 07/30/2019 1001 FAX #: [phone] Reason: R10.9, ABDOMINAL CRAMPING. BLOATING. EXAMS: CPT CODE: [id number] CT ABD PELVIS W/O CONT 97179 (Continued) PELVIS: No pelvic mass. The urinary bladder is normal. MUSCULOSKELETAL: No acute bony abnormality. Multilevel moderate to severe degenerative changes identified. Multilevel disc osteophyte complexes with moderate to severe central canal and foraminal narrowing, most prominent in the lower lumbar spine and lumbar sacral junction. IMPRESSION: 1. Small bilateral pleural effusions, right greater than left. Possible slightly complex fluid with pleural thickening. 2. Bilateral basilar pneumonia versus atelectasis, edema. 3. Findings suggesting severe bilateral renal parenchymal disease with possible nonfunctioning kidneys. 4. Colonic diverticulosis. 5. Extensive chronic degenerative changes. SL: [id number] at 1038 Reported and signed by: Akin Katz M.D. CC: Rene Felder MD; Sushil Kent MD Technologist:Tera Connors RT(R)(CT) CTDI: DLP: Trnscb Date/Time: 07/30/2019 (1038) t.SDR.MSR4 Orig Print D/T: S: 07/30/2019 (4127) PAGE 2 Signed ReportBASIC METABOLIC [id number] 08:56:00 Test Item Value Reference Range Interpretation [...] 10.3 mg/dL 8.0-10.5 N CA) BASIC METABOLIC [id number] 08:51:00 Test Item Value Reference Range Interpretation [...] mg/dL 8.0-10.5 N - XR CHEST 2 [id number] 08:50:00 FAX: Rene Felder MD [phone] [place]: St: [facility] FAX: Sushil Pepe [phone] FAX: Mary Liz N Name:KANU NORWOOD [facility] : 1945 Age/S: 74/M [address] [place] [address] Unit #: [id number] Loc: [place] [address] Phys: Mary Liz NP Acct: [id number] Dis Date: Status: REG [facility] PHONE #: [phone] Exam Date: 07/12/2019 0850 FAX #: [phone] Reason: PRE-OP EGD/COLON EXAMS: CPT CODE: [id number] XR CHEST 2 V 76230 Study: - XR CHEST 2 V 07/12/2019 7:59 AM Patient Name: KANU NORWOOD MR: [id number] : 1945; Age: 74 years y/o Male [...] imaged. IMPRESSION: Small bilateral pleural effusions SL: [id number] at 0850 Reported and signed by: Guillermo Maguire M.D. CC: Rene Gauthier; Sushli Kent MD; Mary Liz NP Technologist: RT Vinayak(Stanislav) Trnscrd Date/Time/By: 07/12/2019 (0860) : By: [email or web address] Orig Print D/T: S: 07/12/2019 (6689) PAGE 1 Signed ReportCBC W/AUTO [id number] 08:30:00 Test Item Value Reference Range Interpretation [...]
--- NOTE | 2022-02-27 23:39 | EDPHYS ---
Physician Documentation [facility] Name: Parish Matthews Age: 76 yrs Sex: Male : 1945 Arrival Date: 02/27/2022 Time: 22:48 Bed 18 Private MD: ED Physician Cristobal Galdamez HPI: 02/27 22:59 This 76 yrs old Male presents to ER via Unassigned with complaints of Shortness Of rn Breath. 22:59 The patient has shortness of breath at rest, with light activity. Onset: The rn symptoms/episode began/occurred yesterday. Duration: The symptoms are continuous. The patient's shortness of breath is aggravated by exertion, light activity, supine position, talking, walking, is alleviated by nothing. Associated signs and symptoms: Pertinent positives: non-productive cough, Pertinent negatives: fever, hemoptysis, loss of consciousness. Severity of symptoms: At their worst the symptoms were moderate in the emergency department the symptoms are unchanged. The patient has experienced similar episodes in the past. The patient has not recently seen a physician. Pt reports sob at rest and worse with light activity, using 's oxygen concentrator to breathe. No fever. Reports last dialysis Monday, due for dialysis tomorrow, feels like carrying more fluid than normal and couldn't wait until tomorrow. . Historical: - Allergies: 22:59 antihisamines; kd3 - PMHx: 22:59 AV fistula to left arm; Dialysis; M,W,F; hernia repair 2 weeks ago; Pneumonia; Sleep kd3 Apnea; - Immunization history:: Adult Immunizations up to date. - Social history:: Smoking status: unknown. - Family history:: not pertinent. - Hospitalizations: : No recent hospitalization is reported. ROS: 22:59 Constitutional: Negative for fever, chills, and weight loss, Eyes: Negative for injury, rn pain, redness, and discharge, Neck: Negative for injury, pain, and swelling, Cardiovascular: Negative for chest pain, palpitations, and edema, Respiratory: Negative for wheezing, and pleuritic chest pain, Abdomen/GI: Negative for abdominal pain, nausea, vomiting, diarrhea, and constipation, Back: Negative for injury and pain, MS/Extremity: Negative for injury and deformity, Skin: Negative for injury, rash, and discoloration, Neuro: Negative for headache, weakness, numbness, tingling, and seizure. Exam: 22:59 Constitutional: This is a well developed, well nourished patient who is awake, alert, rn sob just moving from stretcher to bed Head/Face: Normocephalic, atraumatic. Eyes: Periorbital areas with no swelling, redness, or edema. Cardiovascular: Bradycardic, regular. No pulse deficits. Respiratory: + mild tachypnea, crackles at bases, no retractions. Abdomen/GI: Soft, non-tender Skin: Warm, dry MS/ Extremity: Pulses equal, no cyanosis. Neuro: Awake and alert, GCS 15 02/28 00:27 ECG was reviewed by the Attending Physician. rn Vital Signs: 02/27 22:56 BP 168 / 71; Pulse 58; Resp 21; Temp 98.2; Pulse Ox 92% on 3 lpm NC; Weight 108.86 kg; kd3 Height 5 ft. 8 in. (172.72 cm); Pain 0/10; 23:09 BP 158 / 61; Pulse 56; Resp 22; Pulse Ox 98% on 3 lpm NC; kd3 02/28 01:48 BP 131 / 68; Pulse 53; Resp 20; Pulse Ox 98% on 2 lpm NC; kd3 02/27 22:56 Body Mass Index 36.49 (108.86 kg, 172.72 cm) kd3 MDM: 02/27 22:50 Patient medically screened. rn 23:36 Differential diagnosis: Anxiety Reaction Myocardial Infarction pneumonia, Pneumothorax rn pulmonary edema. Data reviewed: vital signs, nurses notes, radiologic studies, plain films, and as a result, I will admit patient. Counseling: I had a detailed discussion with the patient and/or guardian regarding: the historical points, exam findings, and any diagnostic results supporting the discharge/admit diagnosis, radiology results, the need for further work-up and treatment in the hospital. Response to treatment: the patient's symptoms have mildly improved after treatment, and as a result, I will admit patient. Admission orders: after a detailed discussion of the patient's condition and case, the admit orders are written by me. 02/27 22:50 Order name: BMP rn 02/27 22:50 Order name: CBC with Diff rn 02/27 22:50 Order name: Hepatic Function rn 10/09 22:50 Order name: NT PRO-BNP rn 02/27 22:50 Order name: PT-INR rn 02/27 22:50 Order name: Ptt, Activated rn 02/27 22:50 Order name: Troponin HS rn 02/27 22:51 Order name: SARS RAPID rn 02/28 00:09 Order name: SARS-COV-2 Antigen Rapid; Complete Time: 00:29 EDMS 02/28 00:40 Order name: Protime (+INR); Complete Time: 00:40 EDMS 02/28 00:40 Order name: PTT, Activated Partial Thromb; Complete Time: 00:40 EDMS 02/28 00:42 Order name: CBC with Automated Diff; Complete Time: 01:18 EDMS 02/28 01:13 Order name: Basic Metabolic Panel; Complete Time: 01:18 EDMS 02/28 01:13 Order name: Liver (Hepatic) Function; Complete Time: 01:18 EDMS 02/27 22:50 Order name: XRAY CXR (1 view) rn 02/27 22:50 Order name: EKG; Complete Time: 22:51 rn 02/27 22:50 Order name: Cardiac monitoring; Complete Time: 23:40 rn 02/27 22:50 Order name: EKG - Nurse/Tech; Complete Time: 23:40 rn 02/27 22:50 Order name: IV Saline Lock; Complete Time: 23:40 rn 02/27 22:50 Order name: Labs collected and sent; Complete Time: 00:04 rn 02/27 22:50 Order name: O2 Per Protocol; Complete Time: 23:40 rn 02/27 22:50 Order name: O2 Sat Monitoring; Complete Time: 23:40 rn 02/28 01:13 Order name: Troponin High Sensitivity; Complete Time: 01:18 EDMS 02/28 01:13 Order name: NT PRO-BNP; Complete Time: 01:18 EDMS EC/10 00:27 Rate is 55 beats/min. Rhythm is regular. QRS [place] is Normal. RI interval is normal. QRS rn interval is normal. QT interval is normal. No Q waves. T waves are Normal. No ST changes noted. Clinical impression: Sinus bradycardia. Interpreted by me. Reviewed by me. Administered Medications: 00:16 Drug: Lasix (furosemide) 60 mg Route: IVP; Site: right forearm; kd3 01:49 Follow up: Response: No adverse reaction kd3 Disposition Summary: 02/27/22 23:39 Hospitalization Ordered Hospitalization Status: Inpatient Admission rn Provider: Marlon Elliott rn Condition: Stable rn Problem: new rn Symptoms: have improved rn Bed/Room Type: Standard rn Location: Intensive Care Unit(02/28/22 01:01) mw Room Assignment: 5-(02/28/22 01:01) mw Diagnosis - End stage renal disease rn - Acute pulmonary edema rn - Dyspnea, unspecified rn - Pleural effusion, not elsewhere classified rn Forms: - Medication Reconciliation Form rn - SBAR form rn Signatures: Dispatcher [employer] EDKatelyn Barcenas RN RN mw Nieto, Roman, MD MD rn Doucette, Kyli, RN RN kd3 Corrections: (The following items were deleted from the chart) 01:01 02/27 23:39 Telemetry/MedSurg (Inpatient) brittany baker 02/28 01:01 02/27 23:39 rn
--- NOTE | 2022-02-27 23:39 | ER ---
Nurse's Notes [facility] Name: Parish Matthews Age: 76 yrs Sex: Male : 1945 Arrival Date: 02/27/2022 Time: 22:48 Bed 18 Private MD: Diagnosis: End stage renal disease;Acute pulmonary edema;Dyspnea, unspecified;Pleural effusion, not elsewhere classified Presentation: 02/27 22:56 Chief complaint: EMS states: PT had dialysis on Monday and started feeling like he was kd3 getting fluid overloaded but couldn't come in because he couldn't leave his disabled home alone. he started feeling worse so he called 911. pt on 3 l n/c in route. Coronavirus screen: Vaccine status: Patient reports receiving the 2nd dose of the covid vaccine. Ebola Screen: No symptoms or risks identified at this time. Initial Sepsis Screen: Does the patient meet any 2 criteria? No. Patient's initial sepsis screen is negative. Does the patient have a suspected source of infection? No. Patient's initial sepsis screen is negative. Risk Assessment: Do you want to hurt yourself or someone else? Patient reports no desire to harm self or others. Onset of symptoms was February 27, 2022. 22:56 Method Of Arrival: EMS: [facility] kd3 22:56 Acuity: STACY 3 kd3 Triage Assessment: 22:59 General: Appears uncomfortable, Behavior is calm, cooperative. Pain: Denies pain. kd3 Respiratory: Reports shortness of breath at rest Onset: The symptoms/episode began/occurred gradually, the patient has moderate shortness of breath. Historical: - Allergies: 22:59 antihisamines; kd3 - PMHx: 22:59 AV fistula to left arm; Dialysis; M,W,F; hernia repair 2 weeks ago; Pneumonia; Sleep kd3 Apnea; - Immunization history:: Adult Immunizations up to date. - Social history:: Smoking status: unknown. - Family history:: not pertinent. - Hospitalizations: : No recent hospitalization is reported. Screenin:59 Abuse screen: Denies threats or abuse. Denies injuries from another. Nutritional kd3 screening: No deficits noted. Tuberculosis screening: No symptoms or risk factors identified. Fall Risk IV access (20 points). Assessment: 23:00 Respiratory: Airway is patent Respiratory effort is labored, Breath sounds are kd3 diminished bilaterally. 02/28 01:11 Cardiovascular: Rhythm is sinus rhythm. kd3 Vital Signs: 02/27 22:56 BP 168 / 71; Pulse 58; Resp 21; Temp 98.2; Pulse Ox 92% on 3 lpm NC; Weight 108.86 kg; kd3 Height 5 ft. 8 in. (172.72 cm); Pain 0/10; 23:09 BP 158 / 61; Pulse 56; Resp 22; Pulse Ox 98% on 3 lpm NC; kd3 10 01:48 BP 131 / 68; Pulse 53; Resp 20; Pulse Ox 98% on 2 lpm NC; kd3 02/27 22:56 Body Mass Index 36.49 (108.86 kg, 172.72 cm) kd3 ED Course: 02/27 22:48 Patient arrived in ED. ag3 22:50 Cristobal Galdamez MD is Attending Physician. rn 22:56 Ashlyn Perez RN is Primary Nurse. kd3 22:59 Triage completed. kd3 22:59 Arm band placed on right wrist. kd3 22:59 Patient has correct armband on for positive identification. kd3 23:37 Marlon Elliott is Hospitalizing Provider. rn 23:40 SARS RAPID Sent. kd3 23:40 BMP Sent. kd3 23:40 Troponin HS Sent. kd3 23:40 NT PRO-BNP Sent. kd3 02/28 00:04 CBC with Diff Sent. kd3 00:04 Hepatic Function Sent. kd3 00:04 PT-INR Sent. kd3 00:04 Ptt, Activated Sent. kd3 01:11 No provider procedures requiring assistance completed. Patient admitted, IV remains in kd3 place. Administered Medications: 00:16 Drug: Lasix (furosemide) 60 mg Route: IVP; Site: right forearm; kd3 01:49 Follow up: Response: No adverse reaction kd3 Medication: 01:12 VIS not applicable for this client. kd3 Outcome: 02/27 23:39 Decision to Hospitalize by Provider. rn 02/28 01:11 Admitted to Med/surg kd3 Condition: stable Discharge instructions given to patient, Instructed on the need for admit, Demonstrated understanding of instructions. 01:55 Patient left the ED. kd3 Signatures: Cristobal Galdamez MD MD rn Gomez, Alice ag3 Ashlyn Perez, RN RN kd3
[2022-02-28 00:09] LABS: SARS-CoV-2 Antigen Rapid Res Negative (Negative)
[2022-02-28] MEDS ORDERED: FUROSEMIDE 40 MG/4 ML VIAL ONE (00:11)
[2022-02-28] MEDS ORDERED: FUROSEMIDE 20 MG/ 2ML VIAL ONE (00:11)
[2022-02-28 00:35] LABS: Absolute Lymphocytes (CBC) 1.7 K/uL (0.7-4.9); Hematocrit 30.5 % (39.6-49.0); Lymphocytes % 22.5 % (15.3-44.8); RBC Red Blood Cell Count 2.93 M/uL (4.33-5.43)
[2022-02-28 00:40] LABS: Protime INR 0.97
--- NOTE | 2022-02-28 00:52 | P.HP ---
Certification for Inpatient Patient admitted to: Inpatient With expected LOS: >2 Midnights Patient will require the following post-hospital care: None Practitioner: I am a practitioner with admitting privileges, knowledge of patient current condition, hospital course, and medical plan of care. Services: Services provided to patient in accordance with Admission requirements found in Title 42 Section 412.3 of the Code of Federal Regulations Patient History Date of Service: 02/28/22 Reason for admission: ESRD, Hypoxia History of Present Illness: Patient is a 76-year-old male with history of ESRD on HD MWF, hypertension, hyperlipidemia, and UBALDO who presented to the ED with complaints of shortness of breath. Patient reports that he last had dialysis on Monday but feels like he has a lot of fluid on him and could not wait for dialysis tomorrow. He has been using his 's home O2 to help him breathe. Patient was initially saturating 92% on 3 L in the ED then improved to 98% on 3 L. He was given 60 mg IV Lasix in ED. Labs significant for hgb 10.1, potassium 5.3, BUN 58, Cr 11, alk phos 345, BNP 30770. Chest x-ray showed "Focal area of opacity within the right lung base correspond to infiltrate/or small right pleural effusion." During my assessment, he is resting comfortably on supplemental O2. He reports improvement in symptoms. Patient is admitted for further management. Allergies Antihistamines - Alkylamine Adverse Reaction (Mild, Verified 07/19/11 03:29) Shortness of breath Home medications list reviewed: Yes Home Medications: Albuterol Sulfate [Proventil Hfa] 1 puff IH TIDP PRN 04/16/18 Famotidine [Pepcid*] 20 mg PO DAILY 04/16/18 Folic Acid/Vitamin B Comp W-C [Nephro-Krystina Tablet] 1 tab PO DAILY 04/16/18 Rosuvastatin [Crestor*] 10 mg PO BEDTIME 04/16/18 allopurinoL [Zyloprim*] 75 mg PO BEDTIME 04/16/18 Fluticasone [Flonase 50MCG Nasal [place]*] 1 puff IH BID 09/10/19 Lanthanum Carbonate 1,000 mg PO TIDWM 09/10/19 Omeprazole 40 mg PO BIDP PRN 09/10/19 Ropinirole HCl [Requip] 6 mg PO BEDTIME 09/10/19 Sevelamer Carbonate 3,200 mg PO TIDWM 09/10/19 Duloxetine [Cymbalta *] 20 mg PO DAILY 09/01/21 Furosemide [Lasix*] 40 mg PO DAILY 09/01/21 Magnesium Citrate 200 mg PO DAILY 09/01/21 Zinc 50 mg PO DAILY 09/01/21 - Past Medical/Surgical History Diabetic: No -: ESRD with dependence on Hemodialysis -: Hypertension -: Hyperlipidemia -: Obstructive Sleep Apnea -: Gout -: Restless Leg -: 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 - Family History Family History: Reviewed- Non-Contributory - Social History Smoking Status: Never smoker Alcohol use: Yes CD- Drugs: No Caffeine use: Yes Place of Residence: Home Review of Systems Respiratory: Shortness of Breath Physical Examination - Physical Exam General: Alert, In no apparent distress, Obese HEENT: Atraumatic, PERRLA, EOMI, Sclerae nonicteric Neck: Supple, 2+ carotid pulse no bruit, No LAD, Without JVD or thyroid abnorma lity Respiratory: Diminished Cardiovascular: Regular rate/rhythm, Normal S1 S2 Gastrointestinal: Normal bowel sounds, No tenderness Musculoskeletal: No tenderness Integumentary: No rashes Neurological: Normal speech, Normal strength at 5/5 x4 extr, Normal tone, Normal affect - Studies Laboratory Data (last 24 hrs) 02/28/22 00:04: PT 10.7, INR 0.97, APTT 32.2 02/28/22 00:02: WBC 7.70, Hgb 10.1 L, Hct 30.5 L, Plt Count 195 Assessment and Plan - Problems (Diagnosis) (1) ESRD (end stage renal disease) on dialysis Current Visit: Yes Status: Chronic (2) Hypertension Current Visit: Yes Status: Chronic Qualifiers: Hypertension type: primary hypertension Qualified Code(s): I10 - Essential (primary) hypertension (3) Acute pulmonary edema Current Visit: Yes Status: Acute (4) Acute respiratory failure Current Visit: Yes Status: Acute Qualifiers: Respiratory failure complication: hypoxia Qualified Code(s): J96.01 - Acute respiratory failure with hypoxia (5) Anemia Current Visit: Yes Status: Chronic Qualifiers: Anemia type: due to chronic kidney disease Chronic kidney disease stage: on chronic dialysis Qualified Code(s): N18.6 - End stage renal disease; D63.1 - Anemia in chronic kidney disease; Z99.2 - Dependence on renal dialysis (6) Obstructive sleep apnea Current Visit: Yes Status: Chronic (7) Pleural effusion Current Visit: Yes Status: Acute - Plan -Admit patient to telemetry -Nephrology consult in place -Fluid restriction. Monitor intake and output -Supplemental O2 as needed. Monitor pulse ox -Repeat chest xray to monitor pleural effusion -Anemia appears stable at this time. Will monitor CBC -CPAP at bedtime -Monitor and replete electrolytes per protocol -Reconcile and continue home medications -Heparin for VTE ppx -Full code Discharge Plan: Home Plan to discharge in: Greater than 2 days - Advance Directives Does patient have a Living Will: Yes Does patient have a Durable POA for Healthcare: No - Code Status/Comfort Care Code Status Assessed: Yes (Full) Critical Care: No Time Spent Managing Pts Care (In Minutes): 50
[2022-02-28 01:00] LABS: Albumin 3.1 g/dL (3.4-5.0); Bilirubin Direct 0.2 mg/dL (0-0.2); Bilirubin Total 0.5 mg/dL (0.2-1.0); Potassium 5.3 mmol/L (3.5-5.1); Protein, Total 6.6 g/dL (6.4-8.2); Troponin High Sensitivity 41.5 pg/mL (<58.9)
[2022-02-28] MEDS ORDERED: ONDANSETRON 4 MG/2 ML VIAL IV PRN (02:58)
[2022-02-28] MEDS ORDERED: ALBUTEROL 2.5 MG/3 ML NEB SOL NEB PRN ×2 (02:58→14:00)
[2022-02-28] MEDS ORDERED: ACETAMINOPHEN 500 MG TAB PO PRN (02:58)
[2022-02-28] MEDS: HEPARIN 5000 UNIT/ML 1 ML VIAL SQ SCH ×3 (03:30→17:51)
[2022-02-28 07:00] LABS: Specific Gravity 1.009 (1.005-1.030); Urine Bilirubin NEGATIVE (Negative); Urine Blood Negative (Negative); Urine Clarity Clear (Clear); Urine Color Light-Yellow (Yellow); Urine Glucose 1+ (Negative); Urine Protein 1+ (Negative); Urine RBC <5 /HPF (None Seen); Urine Urobilinogen Normal (Normal)
--- NOTE | 2022-02-28 10:42 | RAD REPORT ---
EXAM DESCRIPTION: RAD - Chest Single View - 02/27/2022 11:04 pm CLINICAL HISTORY: 76 years, Male, dysnea COMPARISON: None FINDINGS: Single view of the chest was obtained portable. No prior films are available for compariso n. External EKG leads within the losiv-go-afvi limits diagnosis. The heart is prominent. The thoracic aorta is mildly tortuous with minimal intimal calcification. Focal area of opacity within the right lung base correspond to infiltrate/or small right pleural effusion. Minimal increased interstitial pu lmonary markings. Vascular stent left arm. The rest of the soft tissue and bony structures demonstrat e to be unremarkable. IMPRESSION: Focal area of opacity within the right lung base correspond to infiltrate/or small right pleural effusion. Cardiomegaly. Electronically signed by: Michael Ochoa MD 02/28/2022 1:13 AM CDT Due to temporary technical issues with the PACS/Fluency reporting system, reports are being signed by the in house radiologists without review as a courtesy to insure prompt reporting. The interpreting radiologist is fully responsible for the content of the report.
[2022-02-28] MEDS ORDERED: cloNIDine HCL 0.1 MG TAB PO PRN (12:28)
--- NOTE | 2022-02-28 12:32 | P.PN ---
Date of Service: 02/28/22 Patient seen and examined. Reports dyspnea with exertion. No shortness of breath at rest. Checks x-ray reviewed and noted right-sided pleural effusion. Diagnosis: Right pleural effusion. End-stage renal disease on hemodialysis. Plan: Nephrology consulted. Patient planned for hemodialysis today. Reconcile home medications.
[2022-02-28] MEDS ORDERED: FUROSEMIDE 100 MG/10 ML VIAL IV ONE (12:34)
--- NOTE | 2022-02-28 14:13 | EKG ---
Test Date: 2022-02-27 Test Time: 23:28:54 Spectrographer: MANUEL MEASUREMENT RESULTS: Intervals: Rate: 55 OK: 180 QRSD: 154 QT: 468 QTc: 447 Adell: P: 27 OK: 180 QRS: 66 T: 73 INTERPRETIVE STATEMENTS: Sinus bradycardia Right bundle branch block Abnormal ECG Compared to ECG 09/01/2021 04:08:29 Sinus rhythm no longer present Ventricular premature complex(es) no longer present Electronically Signed On 02-28-22 14:12:14 CDT by Andry Desouza
[2022-02-28] MEDS: SEVELAMER CARBONATE 800 MG TABLET PO SCH (16:59)
[2022-02-28] MEDS: ROPINIROLE HCL 1 MG TAB PO SCH (19:11)
--- NOTE | 2022-02-28 19:43 | P.PN ---
Date of Service: 03/01/22 Subjective: feels slightly better, still requiring O2 supplementation no acute events overnight ROS: 10 point ROS as noted above, otherwise negative Physical Exam: Gen: NAD, AOx3 HEENT: normal conjunctiva, sclera anicteric CV: regular rate & rhythm, no edema Pulm: diminished at right base, on 3L NC Abd: soft, non-tender, non-distended Neuro: normal speech, normal affect, moves all extremities vitals reviewed Problem List acute hypoxemic respiratory failure secondary to volume overload Right pleural effusion ESRD on HD (MWF) HTN Anemia of chronic disease UBALDO Depression/Anxiety Patient s/p HD on Monday as regularly scheduled but still SOB and hypoxic. Was using 's home O2 prior to arrival here continue diuresis nephrology consulted 3.5L removed on 02/28 HD patient appears volume overloaded CXR on presentation: suspected R pleural effusion, small; vs infiltrate patient without evidence of infection /sepsis Pulm consulted continue duloxetine, vitamins, statin, requip VTE: heparin sq Code: full Dispo: home, ~2 days may need home O2 Time Spent Managing Pts Care (In Minutes): 35
[2022-02-28] MEDS: MAGNESIUM OXIDE 400 MG TAB PO SCH (20:31)
[2022-02-28] MEDS: ROSUVASTATIN 10 MG TAB PO SCH (20:31)
[2022-02-28] MEDS: PANTOPRAZOLE 40MG TABLET PO SCH (20:31)
[2022-02-28] MEDS: COENZYME Q10- 200 MG CAP PO SCH (20:32)
[2022-02-28] MEDS ORDERED: HOME MED 1 EA UNK (Ropinirole Hcl [Requip] 2 MG Tablet) PO SCH (21:00)
[2022-02-28] MEDS ORDERED: HOME MED 1 EA UNK (Esomeprazole Mag Trihydrate [Nexium] 40 MG Capsule.Dr) PO SCH (21:00)
[2022-03-01] MEDS: HEPARIN 5000 UNIT/ML 1 ML VIAL SQ SCH ×3 (00:57→17:10)
--- NOTE | 2022-03-01 02:32 | CON ---
Date of Consultation: 02/28/2022 Chief Complaint: End-stage renal disease, hypoxemia, and respiratory failure. History Of Present Illness: The patient is a 76-year-old man with history of end-stage renal disease , on hemodialysis Monday, Monday, and Monday, hypertension, hyperlipidemia, obstructive sleep apne a, and obesity. The patient came to the hospital because of generalized weakness and fluid overload. He had last dialysis done on Monday, but he was not feeling well and he came to the hospital [facility] of progressively worse shortness of breath. He was found to have hypoxemia. The patient initially had saturation of 92% on 3 L, improved to 98 on 3 L. He was given 60 mg of IV Lasix in the emergenc y room. He was found to have a mild hyperkalemia, potassium was 5.3, BUN 58, creatinine 11, and BNP 12,708. Chest x-ray showed focal area of opacities within the right lung base corresponding to infil trate small right pleural effusion. Review of Systems: The patient denies fever or chills. Eyes: Denies vision changes. Ears, Nose, Mouth, and Throat: Denies sore throat or earache. Respiratory: Has shortness of breath at rest and with mild activities. GI: No nausea. No vomiting. No melena. : Denies dysuria, hematuria, or incomplete voiding. All other systems reviewed and all are negative. Past Medical History: End-stage renal disease, hemodialysis 3 times per week, renal osteodystrophy, obstructive sleep apnea, gout, restless legs, status post prostate surgery, AV fistula creation, knee surgery, right Achilles surgery, left heel spur, and left Achilles and cholecystectomy. Social History: Denies tobacco, alcohol, or illicit drugs. Physical Examination: General: The patient is awake, alert, follows commands. Eyes: Anicteric sclerae. EOMI. Ears, Nose, Mouth, and Throat: Oral mucosa moist. No pallor. Neck: Supple. No bruits. Lungs: Rhonchi present. Crackles at bases present. GI: Abdomen is soft and nontender. No rebound. No guarding. : Deferred. Extremities: Edema present in both legs. No clubbing. No cyanosis. Neurological: Moving extremities. Cranial nerves intact. Laboratory Data: WBC 7.7, hemoglobin 10.1, and hematocrit 30.5. INR is 0.97, PTT 10.7, and PTT 32.2 . Impression And Plan: 1.End-stage renal disease. The patient has fluid overload and shortness of breath in the setting of pulmonary edema, triggered by fluid overload and uncontrolled hypertension. The patient received La six and blood pressure medication. He remains in ICU. The patient will have dialysis in ICU to cont rol fluid overload. Case was discussed with nursing staff. 2.Anemia. Monitor hemoglobin level. Adjust SAQIB as needed. 3.Shortness of breath and recommend Pulmonary consult. Continue to monitor cardiac enzymes. EB/MODL Voice ID: [id number] Report ID: [id number]
[2022-03-01 05:00] LABS: Absolute Lymphocytes (CBC) 1.4 K/uL (0.7-4.9); Hematocrit 31.1 % (39.6-49.0); MCV 102.6 fL (80-100); MPV 7.2 fL (7.6-11.3); RBC Red Blood Cell Count 3.03 M/uL (4.33-5.43)
[2022-03-01 05:35] LABS: Magnesium 2.8 mg/dL (1.8-2.4); Phosphorus 4.9 mg/dL (2.5-4.9); Potassium 4.7 mmol/L (3.5-5.1); Thyroid Stimulating Hormone 0.833 uIU/mL (0.360-3.740)
--- NOTE | 2022-03-01 07:47 | RAD REPORT ---
EXAM DESCRIPTION: RAD - Chest Single View - 03/01/2022 6:20 am CLINICAL HISTORY: f/u R opacity / pleural effusion? COMPARISON: Chest Single View dated 02/27/2022; Chest Pa And Lat (2 Views) dated 10/31/2019; Chest Pa And Lat (2 Views) dated 09/24/2019; Chest Pa And Lat (2 Views) dated 09/11/2019; Abdomen Pelvis Wo Con trast dated 09/01/2021 FINDINGS: Lines: None. Lungs: Opacification of the right lung base. The left lung base is incompletely imaged. Pleural: Right-sided pleural effusion. Suspect a partially imaged left pleural effusion. Cardiac: Cardiomegaly. Mediastinum: Within normal limits. Bones: No acute fractures. Other: None IMPRESSION: Similar appearance of the chest since 02/27/2022 with pleural effusions and basilar airs pace disease that could reflect atelectasis and/or pneumonia.
[2022-03-01] MEDS: HOME MED 1 EA UNK (Fluticasone Propionate [Flonase Allergy Relief] 9.9 ML Spray.Susp) NAS SCH (09:00)
[2022-03-01] MEDS: MAGNESIUM OXIDE 400 MG TAB PO SCH ×2 (09:00→20:37)
[2022-03-01] MEDS: METOPROLOL XL 25 MG TAB PO SCH ×2 (10:11→10:15)
[2022-03-01] MEDS: FUROSEMIDE 40 MG TABLET PO SCH (10:11)
[2022-03-01] MEDS: ZINC SULFATE 220 MG CAP PO SCH (10:12)
[2022-03-01] MEDS: SEVELAMER CARBONATE 800 MG TABLET PO SCH ×3 (10:13→17:10)
[2022-03-01] MEDS: DULOXETINE 20 MG CAP PO SCH (10:13)
[2022-03-01] MEDS: MULTIVITAMINS,THERAPEUT 1 TAB PO SCH (10:13)
[2022-03-01] MEDS: PANTOPRAZOLE 40MG TABLET PO SCH ×2 (10:13→20:38)
[2022-03-01] MEDS: CYANOCOBALAMIN 1,000 MCG TAB PO SCH (10:13)
[2022-03-01] MEDS: allopurinoL 300 MG TAB PO SCH (10:14)
--- NOTE | 2022-03-01 11:53 | P.CNS ---
Date of Consult: 03/01/22 Reason for Consult: Right-sided pleural effusion Chief Complaint: ESRD, Hypoxia History of Present Illness: Patient is 76 years of age with end-stage renal disease admitted with shortness of breath claims that he had a lot of fluid on him his dry weight was also lowered pliant with his dialysis only doing well denies any fever or chills cough or chest pain he does have a chronic right-sided pleural effusion Allergies Antihistamines - Alkylamine Adverse Reaction (Mild, Verified 02/28/22 03:24) Shortness of breath Home Medications: Albuterol Sulfate [Proair Hfa] 2 inh IH DAILYPRN PRN 02/28/22 Allopurinol 150 mg PO DAILY 02/28/22 Cyanocobalamin (Vitamin B-12) [Vitamin B-12] 2,500 mcg PO DAILY 02/28/22 Duloxetine [Cymbalta Dalayed Release Pellets] 20 mg PO DAILY 02/28/22 Esomeprazole Mag Trihydrate [Nexium] 40 mg PO BID 02/28/22 Fluticasone Propionate [Flonase Allergy Relief] 1 spray NS DAILY 02/28/22 Folic Acid/Vitamin B Comp W-C [Nephro-Krystina Tablet] 0.8 mg PO DAILY 02/28/22 Furosemide [Lasix] 40 mg PO DAILY 02/28/22 Ketogenic Weight Loss Formula 1 tab PO BEDTIME 02/28/22 Magnesium Oxide [Mag-Oxide] 200 mg PO BID 02/28/22 Metoprolol Succinate 25 mg PO DAILY 02/28/22 Neuropathy 900 450 Mg 3 cap PO BID 02/28/22 Ropinirole HCl [Requip] 3 tab PO BEDTIME 02/28/22 Rosuvastatin [Crestor] 10 mg PO BEDTIME 02/28/22 Sevelamer Carbonate [Renvela*] 3,200 mg PO TIDWM 02/28/22 Ubidecarenone [Co Q-10] 1 tab PO BEDTIME 02/28/22 Ultimate Daily Classic 1 tab PO DAILY 02/28/22 Zinc 1 tab PO DAILY 02/28/22 cloNIDine HCL [Clonidine HCl] 0.1 mg PO TIDP PRN 02/28/22 - Past Medical/Surgical History Diabetic: No -: ESRD with dependence on Hemodialysis -: Hypertension -: Hyperlipidemia -: Obstructive Sleep Apnea -: Gout -: Restless Leg -: 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 - Family History Mother Medical History: Cancer Father Medical History: Hypertension Brother Medical History: Heart disease - Social History Smoking Status: Unknown if ever smoked Alcohol use: No CD- Drugs: No Caffeine use: Yes Place of Residence: Home Review of Systems 10-point ROS is otherwise unremarkable Physical Examination Temp Pulse Resp BP Pulse Ox 97.6 F 62 16 161/81 H 95 03/01/22 08:00 03/01/22 10:15 03/01/22 08:00 03/01/22 10:15 03/01/22 08:00 General: Alert, In no apparent distress, Oriented x3 Respiratory: Diminished (Diminished on the right side) Cardiovascular: No edema, Regular rate/rhythm - Problems (1) Pleural effusion Current Visit: Yes Status: Acute Plan: Patient is 76 years of age with end-stage renal disease admitted with shortness of breath volume overload he is currently doing better he is on hemodialysis. Patient has a chronic right-sided pleural effusion was first noticed about 2 years ago denies any chest pain I ordered bilateral decubitus of the chest is no evidence of an infection no intervention necessary at this point his vital signs are stable he does take an inhaler at home stable for discharge
--- NOTE | 2022-03-01 16:07 | PN ---
Date of Progress Note: 03/01/2022 Subjective: The patient was admitted with over volume, acute CHF exacerbation. The patient was dialyzed back to back on the last 3 days. Today, we done sequential. We removed 2.5 L. Physical Examination: Vital Signs: Blood pressure 161/81, pulse of 56, afebrile. Chest: Crackles bilateral base. Heart: S1, S2. Systolic murmur. Abdomen: Soft, nontender. Extremity: Trace edema. Neurologic: Alert. No focality. Vascular: Left AV fistula, good thrill. Laboratory Data: WBC 5.3, H and H 10.5/31.1. Sodium 139, potassium 4.7, bicarb 30, BUN 40, creatinine 8.6, calcium 9.5, phosphorus 4.9, magnesium 2.8. Chest x-ray; still possible clear effusion with over volume. Current Medications: The patient on include clonidine 0.1 t.i.d., metoprolol, rosuvastatin, Requip, Renvela, pantoprazole, finasteride. Assessment And Plan: 1. End-stage renal disease with over volume, dialyzed consecutively. We will back to his dialysis Monday, Monday, Monday and we will follow up. 2. Hypertension. We will utilize blood pressure for more ultrafiltration. 3. Pleural effusion. We will repeat chest x-ray after dialysis today and we will proceed with CT noncontrast to evaluate. We will follow up with Pulmonary. 4. Secondary hyperparathyroidism. Continue binder. 5. Anemia of chronic kidney disease. Continue SAQIB. 6. Coronary artery disease with congestive heart failure exacerbation. We will try to establish better volume control with dialysis. Time spent examining the patient, [id number], reviewing data and radiology, placing ordered, discussing the case with the hospitalist a, discussing the case with nursing more than 35 minutes. JORGE Voice ID: [id number] Report ID: [id number] MELVIN
--- NOTE | 2022-03-01 17:13 | RAD REPORT ---
EXAM DESCRIPTION: RAD - Chest Lateral Decubitus - 03/01/2022 3:32 pm CLINICAL HISTORY: Pleural effusion COMPARISON: Portable 03/01/2022 TECHNIQUE: Right and left lateral decubitus films were obtained. FINDINGS: Right hemidiaphragm elevation is again noted. No layering left pleural effusion and no roel surable quantity of layering right pleural effusion. Lung parenchyma similar to prior imaging. Cardiomegaly is present. No vascular engorgement. IMPRESSION: No layering pleural effusion.
[2022-03-01] MEDS: ROSUVASTATIN 10 MG TAB PO SCH (20:37)
[2022-03-01] MEDS: COENZYME Q10- 200 MG CAP PO SCH (20:37)
[2022-03-01] MEDS: ROPINIROLE HCL 1 MG TAB PO SCH (20:38)
[2022-03-02] MEDS: HEPARIN 5000 UNIT/ML 1 ML VIAL SQ SCH ×3 (00:20→17:00)
[2022-03-02 05:37] VITALS: BMI 34.9
[2022-03-02 05:58] LABS: Absolute Lymphocytes (CBC) 2.2 K/uL (0.7-4.9); Hematocrit 37.3 % (39.6-49.0); Lymphocytes % 31.3 % (15.3-44.8); MCV 104.9 fL (80-100); MPV 7.2 fL (7.6-11.3); RBC Red Blood Cell Count 3.55 M/uL (4.33-5.43)
[2022-03-02 06:14] LABS: Potassium 4.4 mmol/L (3.5-5.1)
[2022-03-02] MEDS: SEVELAMER CARBONATE 800 MG TABLET PO SCH ×3 (08:30→17:00)
[2022-03-02] MEDS: CYANOCOBALAMIN 1,000 MCG TAB PO SCH (08:31)
[2022-03-02] MEDS: MULTIVITAMINS,THERAPEUT 1 TAB PO SCH (08:31)
[2022-03-02] MEDS: DULOXETINE 20 MG CAP PO SCH (08:31)
[2022-03-02] MEDS: ZINC SULFATE 220 MG CAP PO SCH (08:31)
[2022-03-02] MEDS: FUROSEMIDE 40 MG TABLET PO SCH (08:31)
[2022-03-02] MEDS: allopurinoL 300 MG TAB PO SCH (08:32)
[2022-03-02] MEDS: PANTOPRAZOLE 40MG TABLET PO SCH ×2 (08:32→20:47)
[2022-03-02] MEDS: MAGNESIUM OXIDE 400 MG TAB PO SCH ×2 (08:32→20:47)
[2022-03-02] MEDS: HOME MED 1 EA UNK (Fluticasone Propionate [Flonase Allergy Relief] 9.9 ML Spray.Susp) NAS SCH (08:33)
--- NOTE | 2022-03-02 10:27 | RAD REPORT ---
EXAM DESCRIPTION: CT - Thorax Wo Con CLINICAL HISTORY: Chest pain hypoxia, eval effusion vs pneumonia COMPARISON: Chest Lateral Decubitus dated 03/01/2022; Chest Single View dated 03/01/2022 FINDINGS: The lungs are mildly emphysematous. Atelectasis is present in the left lung base in a mode rate amount of atelectasis suspected the posterior right lung base. Trace left and small right pleura l effusion is seen. These have a loculated appearance. No pneumothorax. 10 mm AP window lymph node is present. No lymphadenopathy seen in either hilar region. No pericardial fluid. Moderate thoracic degenerative change. Cholecystectomy clips. All CT scans are performed using dose optimization technique as appropriate and may include automated exposure control or mA/KV adjustment according to patient size. IMPRESSION: Trace left and small right loculated pleural effusions suspected with chronic atelectasi s in the lung bases.
--- NOTE | 2022-03-02 12:37 | PN ---
Date of Progress Note: 03/02/2022 Subjective: The patient was admitted with over volume. The patient being challenged on a daily basis. Yesterday, we managed to remove 2 L. The patient undergone chest x-ray and CT. The patient feeling much better today. Physical Examination: Vital Signs: Blood pressure 139/85, pulse of 96, afebrile. We managed to remove 2.5 L yesterday. Chest: Decreased entry on the right base. Heart: S1, S2. Systolic murmur. Abdomen: Soft, nontender. Extremities: No edema. Neuro: Alert. No focality. Laboratory Data: H and H 10.9/37.3. Sodium 138, potassium 4.4, bicarb 29, BUN 59, creatinine 10.6, calcium 9.8, phosphorus 4.9, magnesium 2.8. BNP was 12,730. Chest x-ray yesterday; there is no layering of the pleural effusion, only elevation on the right hemidiaphragm. CT today done showed loculated right pleural effusion with suspect of atelectasis. We will follow up with Pulmonary. Assessment And Plan: 1. End-stage renal disease, over volume, currently back to normal volume. We will adjust his dry weight according to current dry weight and we will follow up the patient. 2. Congestive heart failure exacerbation. We will adjust the dry weight as above. We will do dialysis today. The patient if weaned from oxygen, the patient will able to be discharged after. 3. Pleural effusion, chronic with loculated as by the CT. We will follow up with Pulmonary. 4. Hypertension, controlled, optimal. Continue current treatment. 5. Hyperkalemia, status post dialysis, resolved. 6. Anemia of chronic kidney disease. H and H stable. No need for SAQIB. PAM/MIGUEL ANGEL Voice ID: [id number] Report ID: [id number] MELVIN
[2022-03-02] MEDS: ROPINIROLE HCL 1 MG TAB PO SCH (20:46)
[2022-03-02] MEDS: COENZYME Q10- 200 MG CAP PO SCH (20:47)
[2022-03-02] MEDS: ROSUVASTATIN 10 MG TAB PO SCH (20:47)
--- NOTE | 2022-03-02 20:54 | P.PN ---
Date of Service: 03/02/22 Subjective: improving tolerating dialysis on O2 this morning ROS: 10 point ROS as noted above, otherwise negative Physical Exam: Gen: NAD, AOx3 HEENT: normal conjunctiva, sclera anicteric CV: regular rate & rhythm, no edema Pulm: diminished at right base, on 2L NC Abd: soft, non-tender, non-distended Neuro: normal speech, normal affect, moves all extremities vitals reviewed Problem List acute hypoxemic respiratory failure secondary to volume overload Right pleural effusion, chronic ESRD on HD (MWF) HTN Anemia of chronic disease UBALDO Depression/Anxiety Patient s/p HD on Monday as regularly scheduled but still SOB and hypoxic. Was using 's home O2 prior to arrival here continue diuresis; improving respiratory status; CXR improved nephrology consulted tolerating HD / fluid removal patient appeared volume overloaded on admission now appears more euvolemic CXR on presentation: suspected R pleural effusion, small; vs infiltrate patient without evidence of infection /sepsis CXR improved; remains on oxygen supplementation Pulm consulted CT chest ordered to eval effusion / opacity continue duloxetine, vitamins, statin, requip VTE: heparin sq Code: full Dispo: home, ~1 days wean O2 today Time Spent Managing Pts Care (In Minutes): 35
[2022-03-03] MEDS: HEPARIN 5000 UNIT/ML 1 ML VIAL SQ SCH ×2 (01:01→08:53)
[2022-03-03 04:25] LABS: Potassium 4.9 mmol/L (3.5-5.1)
[2022-03-03 08:17] VITALS: BP 126/66; TEMP 96.9
[2022-03-03] MEDS: ZINC SULFATE 220 MG CAP PO SCH (08:53)
[2022-03-03] MEDS: MULTIVITAMINS,THERAPEUT 1 TAB PO SCH (08:53)
[2022-03-03] MEDS: SEVELAMER CARBONATE 800 MG TABLET PO SCH (08:53)
[2022-03-03] MEDS: DULOXETINE 20 MG CAP PO SCH (08:53)
[2022-03-03] MEDS: MAGNESIUM OXIDE 400 MG TAB PO SCH (08:53)
[2022-03-03] MEDS: METOPROLOL XL 25 MG TAB PO SCH (08:53)
[2022-03-03] MEDS: FUROSEMIDE 40 MG TABLET PO SCH (08:54)
[2022-03-03] MEDS: CYANOCOBALAMIN 1,000 MCG TAB PO SCH (08:54)
[2022-03-03] MEDS: PANTOPRAZOLE 40MG TABLET PO SCH (08:54)
[2022-03-03] MEDS: allopurinoL 300 MG TAB PO SCH (08:54)
[2022-03-03] MEDS: HOME MED 1 EA UNK (Fluticasone Propionate [Flonase Allergy Relief] 9.9 ML Spray.Susp) NAS SCH (08:55)
[2022-03-03 09:06] VITALS: O2SAT 100
--- NOTE | 2022-03-03 12:55 | PN ---
Date of Progress Note: 03/03/2022 Subjective: The patient was admitted with over volume, respiratory distress, found to have pleural effusion , confirmed with CT. The patient was dialyzed on a daily basis. Shortness of breath has been improved significantly. Physical Examination: General: When I saw the patient today; the patient sitting in the wheelchair, comfortable, not on any distress. Vital Signs: Blood pressure 126/66, pulse of 53. Chest: Decreased entry on the right base. Heart: S1, S2. Systolic murmur. Abdomen: Soft, nontender. Extremity: No edema. Neurologic: Alert. No focality. The patient lost 10 pounds from the admission. Laboratory Data: Hemoglobin 11.9. Sodium 135, potassium 4.9, bicarb 33, BUN 45, creatinine 8.4, calcium 9.6. Current Medications: The patient on include; 1. Metoprolol. 2. Esomeprazole. 3. Requip. 4. Allopurinol. 5. Lasix. Assessment And Plan: 1. End-stage renal disease with over volume, status post dialysis daily, recovered, resolved, back to normal volume currently. I am going to continue current treatment. Will go back to the dialysis Monday, Monday, Monday. The patient is going to be due dialysis tomorrow. 2. Over volume, recovered, resolved. We will monitor the patient. 3. Pleural effusion. We will follow up with Pulmonary. 4. Hyperkalemia, status post dialysis, recovered, resolved. The patient cleared from the Renal standpoint for discharge planning. Time spent examining the patient, [id number], reviewing data and radiology, placing ordered, discussing the case with the hospitalist a, discussing the case with nursing more than 35 minutes. JORGE Voice ID: [id number] Report ID: [id number] MELVIN
[2022-03-06 02:52] LABS: HBsAG Nonreactive (Nonreactive)
--- NOTE | 2022-03-14 21:40 | P.DS ---
Admission Date: 02/28/22 Discharge Date: 03/03/22 Disposition: ROUTINE DISCHARGE Discharge Condition: GOOD Reason for Admission: ESRD, Hypoxia Consultations: Nephrology - Dr. Olman Tovar - Dr. Shaikh Brief History of Present Illness: 76-year-old male with history of ESRD on HD MWF, hypertension, hyperlipidemia, and UBALDO who presented to the ED with complaints of shortness of breath. Patient reports that he last had dialysis on Monday but feels like he has a lot of fluid on him and could not wait for dialysis tomorrow. He has been using his 's home O2 to help him breathe. Patient was initially saturating 92% on 3 L in the ED then improved to 98% on 3 L. He was given 60 mg IV Lasix in ED. Labs significant for hgb 10.1, potassium 5.3, BUN 58, Cr 11, alk phos 345, BNP 20725. Chest x-ray showed "Focal area of opacity within the right lung base correspond to infiltrate/or small right pleural effusion." During my assessment, he is resting comfortably on supplemental O2. He reports improvement in symptoms. Patient is admitted for further management. Hospital Course: Problem List acute hypoxemic respiratory failure secondary to volume overload Right pleural effusion, chronic ESRD on HD (MWF) HTN Anemia of chronic disease UBALDO Depression/Anxiety Patient presented with shortness of breath, found to have an increase in right pleural effusion. He was continued on home medications and underwent additional dialysis with improvement of his symptoms and effusion. Symptoms were secondary to volume overload, in setting of ESRD. Oxygen was weaned off and patient was breathing more comfortably on room air. Pulmonology was consulted. CT chest was obtained and noted chronic atelectasis, small loculated pleural effusion. Dr. Shaikh recommended no further intervention. Follow up in his office in a few weeks. Repeat CT scan in near future to monitor.. No changes in medications. Continue as previously prescribed. Follow up: PCP within 1 week Nephrology in ~2 weeks, continue HD as ordered Pulmonology in ~1-2 weeks Vital Signs/Physical Exam: Temp Pulse Resp BP Pulse Ox 96.9 F 53 16 126/66 99 03/03/22 08:00 03/03/22 08:53 03/03/22 08:00 03/03/22 08:53 03/03/22 08:00 Physical Exam: Gen: NAD, AOx3 HEENT: normal conjunctiva, sclera anicteric CV: regular rate & rhythm, no edema Pulm: diminished at right base, non-labored Abd: soft, non-tender, non-distended Neuro: normal speech, normal affect, moves all extremities Laboratory Data at Discharge: WBC 7.10 K/uL (4.3-10.9) 03/02/22 05:01 Hgb 11.9 g/dL (13.6-17.9) L D 03/02/22 05:01 Hct 37.3 % (39.6-49.0) L 03/02/22 05:01 Plt Count 215 K/uL (152-406) 03/02/22 05:01 PT 10.7 SECONDS (9.5-12.5) 02/28/22 00:04 INR 0.97 02/28/22 00:04 APTT 32.2 SECONDS (24.3-36.9) 02/28/22 00:04 Sodium 135 mmol/L (136-145) L 03/03/22 03:48 Potassium 4.9 mmol/L (3.5-5.1) 03/03/22 03:48 BUN 45 mg/dL (7-18) H 03/03/22 03:48 Creatinine 8.49 mg/dL (0.55-1.3) H* 03/03/22 03:48 Glucose 108 mg/dL (74-106) H 03/03/22 03:48 Phosphorus 4.9 mg/dL (2.5-4.9) 03/01/22 04:25 Magnesium 2.8 mg/dL (1.8-2.4) H 03/01/22 04:25 Total Bilirubin 0.5 mg/dL (0.2-1.0) 02/28/22 00:04 AST 11 U/L (15-37) L 02/28/22 00:04 ALT 25 U/L (12-78) 02/28/22 00:04 Alkaline Phosphatase 345 U/L (45-117) H 02/28/22 00:04 Triglycerides 141 mg/dL (<150) 03/01/22 04:25 Cholesterol 133 mg/dL (<200) 03/01/22 04:25 HDL Cholesterol 53 mg/dL (40-60) 03/01/22 04:25 Cholesterol/HDL Ratio 2.51 03/01/22 04:25 Home Medications: Albuterol Sulfate [Proair Hfa] 2 inh IH DAILYPRN PRN 02/28/22 Allopurinol 150 mg PO DAILY 02/28/22 Cyanocobalamin (Vitamin B-12) [Vitamin B-12] 2,500 mcg PO DAILY 02/28/22 Duloxetine [Cymbalta *] 20 mg PO DAILY 02/28/22 Esomeprazole Mag Trihydrate [Nexium] 40 mg PO BID 02/28/22 Fluticasone Propionate [Flonase Allergy Relief] 1 spray NS DAILY 02/28/22 Folic Acid/Vitamin B Comp W-C [Nephro-Krystina Tablet] 0.8 mg PO DAILY 02/28/22 Furosemide [Lasix*] 40 mg PO DAILY 02/28/22 Ketogenic Weight Loss Formula 1 tab PO BEDTIME 02/28/22 Magnesium Oxide [Mag-Oxide] 200 mg PO BID 02/28/22 Metoprolol Succinate 25 mg PO DAILY 02/28/22 Neuropathy 900 450 Mg 3 cap PO BID 02/28/22 Ropinirole HCl [Requip] 3 tab PO BEDTIME 02/28/22 Rosuvastatin [Crestor*] 10 mg PO BEDTIME 02/28/22 Sevelamer Carbonate [Renvela*] 3,200 mg PO TIDWM 02/28/22 Ubidecarenone [Co Q-10] 1 tab PO BEDTIME 02/28/22 Ultimate Daily Classic 1 tab PO DAILY 02/28/22 Zinc 1 tab PO DAILY 02/28/22 cloNIDine HCL [Clonidine HCl] 0.1 mg PO TIDP PRN 02/28/22 Physician Discharge Instructions: Patient presented with shortness of breath, found to have an increase in right pleural effusion. He was continued on home medications and underwent additional dialysis with improvement of his symptoms and effusion. Symptoms were secondary to volume overload, in setting of ESRD. Oxygen was weaned off and patient was breathing more comfortably on room air. Pulmonology was consulted. CT chest was obtained and noted chronic atelectasis, small loculated pleural effusion. Dr. Shaikh recommended no further intervention. Follow up in his office in a few weeks. Repeat CT scan in near future to monitor.. No changes in medications. Continue as previously prescribed. Follow up: PCP within 1 week Nephrology in ~2 weeks, continue HD as ordered Pulmonology in ~1-2 weeks Followup: Jose Alejandro Shaikh MD [ACTIVE - CAN ADMIT] - 1-2 Weeks (Call for appointment.) Db Thurman MD [ACTIVE - CAN ADMIT] - 1-2 Weeks (Call for appointment.) Unknown,U [Primary Care Provider] - 1 Week (Call for appointment.) Time spent managing pt's care (in minutes): 45
== END 2022-03-03 10:46 | disposition home or self-care (01) | DRG 640 ==
LOC: ER 22:46 → 3RD-ICU 02-28 01:17 → 4TH 03-01 06:01
PROVIDERS: ADMIT Internal Medicine; ATTEND Hospitalist
PROC: 5A09457 Assistance with Respiratory Ventilation, 24-96 Consecutive Hours, Continuous Positive Airway Pressure (ICD-10-PCS; principal; 2022-02-28)
PROC: 5A1D70Z Performance of Urinary Filtration, Intermittent, Less than 6 Hours Per Day (ICD-10-PCS; 2022-02-28)
DX: E87.70 Fluid overload, unspecified (principal); J96.01 Acute respiratory failure with hypoxia; N18.6 End stage renal disease; I13.2 Hypertensive heart and chronic kidney disease with heart failure and with stage 5 chronic kidney disease, or end stage renal disease; N25.81 Secondary hyperparathyroidism of renal origin; J90 Pleural effusion, not elsewhere classified; I50.9 Heart failure, unspecified; D63.1 Anemia in chronic kidney disease; E87.5 Hyperkalemia; E78.5 Hyperlipidemia, unspecified; M10.9 Gout, unspecified; I25.10 Atherosclerotic heart disease of native coronary artery without angina pectoris; F32.A Depression, unspecified; F41.9 Anxiety disorder, unspecified; G47.33 Obstructive sleep apnea (adult) (pediatric); Z88.8 Allergy status to other drugs, medicaments and biological substances; Z99.2 Dependence on renal dialysis; Z90.49 Acquired absence of other specified parts of digestive tract; Z79.899 Other long term (current) drug therapy; Z20.822 Contact with and (suspected) exposure to COVID-19
CPT/HCPCS: 36415; 71045; 71046; 71250; 80048; 80061; 80076; 81001; 83735; 83880; 84100; 84443; 84484; 85025; 85610; 85730; 86317; 87340; 87811; 90935; 93005; 94010; 94660; 94760; 96374; 97161; 99285; J1644; J1940

== ENCOUNTER 2023-08-04 18:17 | Inpatient (IN) | payer OTHER ==
[2023-08-04 19:09] LABS: Absolute Basophils 0.1 K/uL (0-0.5); Absolute Eosinophils 0.5 K/uL (0-0.5); Absolute Lymphocytes (CBC) 0.9 K/uL (0.7-4.9); Absolute Monocytes 0.6 K/uL (0.1-1.3); Absolute Neutrophil 3.1 K/uL (1.8-8.0); Basophils % 1.2 % (0-1.3); Eosinophils % 9.5 % (0-4.4); Hemoglobin 11.6 g/dL (13.6-17.9); Lymphocytes % 18.1 % (15.3-44.8); MCH 34.2 pg (27.0-35.0); MCHC 33.2 g/dL (32.0-36.0); MCV 102.9 fL (80-100); Neutrophils % 59.2 % (41.7-73.7); Platelets 169 thou/uL (152-406); Red Cell Distribution Width 15.5 % (12.1-15.2)
[2023-08-04 19:14] LABS: PT Prothrombin Time 11.5 SECONDS (9.5-12.5); PTT, Activated Partial Thromb 34.4 SECONDS (24.3-36.9); Protime INR 1.05
[2023-08-04] MEDS ORDERED: METHYLPREDNISOLONE 125 MG INJ ONE (19:18)
[2023-08-04] MEDS ORDERED: IPRATROPIUM BROM 0.5MG/2.5ML ONE (19:18)
[2023-08-04] MEDS ORDERED: ACETAMINOPHEN 500 MG TAB ONE (19:18)
[2023-08-04] MEDS ORDERED: ALBUTEROL 2.5 MG/3 ML NEB SOL ONE (19:18)
[2023-08-04] MEDS ORDERED: Levofloxacin 750mg IV 750 MG/150 ML BAG IV ONE (19:19)
[2023-08-04 19:37] LABS: Albumin 3.2 g/dL (3.4-5.0); Albumin/Globulin Ratio 0.7 (1.1-1.8); Anion Gap 13.6 mEq/L (5.0-15.0); Bilirubin Total 0.6 mg/dL (0.2-1.0); Globulin 4.4 g/dL (2.3-3.5); Potassium 3.6 mEq/L (3.5-5.1); Protein, Total 7.6 g/dL (6.4-8.2); Troponin High Sensitivity 39.4 pg/mL (<58.9)
--- NOTE | 2023-08-04 20:21 | RAD REPORT ---
[facility] CLINICAL HISTORY: DYSPNEA COMPARISON: Chest Single View dated 03/01/2022; Chest Single View dated 02/27/2022; Chest Pa And Lat (2 Views) dated 10/31/2019; Chest Pa And Lat (2 Views) dated 09/24/2019 TECHNIQUE: Portable AP view of the chest. FINDINGS: Patchy right mid to basilar opacities with small layering pleural effusion, stable. Possib le trace left effusion. No pneumothorax. The cardiomediastinal contours are unremarkable. IMPRESSION: Stable findings as above, concerning for right basilar pneumonia.
--- NOTE | 2023-08-04 20:32 | EDPHYS ---
Physician Documentation [facility] Name: Parish Matthews Age: 78 yrs Sex: Male : 1945 Arrival Date: 08/04/2023 Time: 18:17 Bed 4 Private MD: ED Physician Mario Fraire HPI: 08/03 19:37 This 78 yrs old Male presents to ER via Wheelchair with complaints of Breathing rt Difficulty. 19:37 Patient with history of CKD on dialysis presents to the ED with progressively worsening rt cough, shortness of breath. Does report history of COPD, does report some wheezing. He has been on antibiotics, cefdinir as well as allergy medicines for 1 course for this cough, however, still continues to worsen. Denies other acute complaints at this time, symptoms are moderate in severity, no other aggravating or elevating factors.. Historical: - Allergies: 18:27 antihisamines; ll1 - PMHx: 18:27 AV fistula to left arm; Dialysis; M; Gout; knee; Pneumonia; Sleep Apnea; ll1 - PSHx: 18:27 Cholecystectomy; hernia; ll1 - Immunization history:: Adult Immunizations unknown. - Social history:: Smoking status: Patient denies any tobacco usage or history of. - Family history:: not pertinent. ROS: 19:37 Constitutional: Negative for fever, chills, and weight loss, Cardiovascular: Negative rt for chest pain, palpitations, and edema, Abdomen/GI: Negative for abdominal pain, nausea, vomiting, diarrhea, and constipation, MS/Extremity: Negative for injury and deformity, Skin: Negative for injury, rash, and discoloration, Neuro: Negative for headache, weakness, numbness, tingling, and seizure, Psych: Negative for depression, anxiety, suicide ideation, homicidal ideation, and hallucinations, 19:37 Respiratory: Positive for cough, shortness of breath, Exam: 19:37 Constitutional: This is a well developed, well nourished patient who is awake, alert, rt and in no acute distress. Head/Face: Normocephalic, atraumatic. Chest/axilla: Normal chest wall appearance and motion. Nontender with no deformity. No lesions are appreciated. Cardiovascular: Regular rate and rhythm with a normal S1 and S2. No gallops, murmurs, or rubs. Normal PMI, no JVD. No pulse deficits. Abdomen/GI: Soft, non-tender, with normal bowel sounds. No distension or tympany. No guarding or rebound. No evidence of tenderness throughout. Skin: Warm, dry with normal turgor. Normal color with no rashes, no lesions, and no evidence of cellulitis. MS/ Extremity: Pulses equal, no cyanosis. Neurovascular intact. Full, normal range of motion. Neuro: Awake and alert, GCS 15, oriented to person, place, time, and situation. Cranial nerves II-XII grossly intact. Motor strength 5/5 in all extremities. Sensory grossly intact. Cerebellar exam normal. Normal gait. Psych: Awake, alert, with orientation to person, place and time. Behavior, mood, and affect are within normal limits. 19:37 ECG was reviewed by the Attending Physician. 19:37 Respiratory: Wheezes heard on all lung us, no respiratory distress, Vital Signs: 18:24 BP 122 / 50; Pulse 83; Resp 22; Temp 100.2(TE); Pulse Ox 99% on R/A; Pain 7/10; ll1 19:00 BP 135 / 67; Pulse 88; Resp 23; Pulse Ox 94% on R/A; kd3 20:11 BP 103 / 57; Resp 23; Temp 99.3; Pulse Ox 94% on R/A; jb4 21:18 BP 124 / 65; Pulse 79; Resp 16; Pulse Ox 94% on R/A; jb4 18:24 Pain Scale: Adult ll1 MDM: 18:31 Patient medically screened. rt 20:31 Differential diagnosis: Pneumonia, COPD, pneumothorax, CHF. Data reviewed: vital signs, rt nurses notes, lab test result(s), EKG, radiologic studies. Consideration of Admission/Observation Patient was admitted/placed on observation. Management of patient was discussed with the following: Hospitalist: Agrees to admit. Independent interpretation of the following test(s) in the Emergency Department X-Ray: My interpretation is Pneumonia seen on interpretation of x-ray images. Care significantly affected by the following chronic conditions: Chronic Kidney Disease. Counseling: I had a detailed discussion with the patient and/or guardian regarding the historical points, exam findings, and any diagnostic results supporting the discharge/admit diagnosis, lab results, radiology results, the need for further work-up and treatment in the hospital. Response to treatment: the patient's symptoms have markedly improved after treatment. 08/03 18:41 Order name: Blood Culture Adult (2) rt 08/03 18:41 Order name: CBC with Diff; Complete Time: 19:40 rt 08/03 18:41 Order name: CMP; Complete Time: 19:40 rt 08/03 18:41 Order name: Lactate w/ 2H reflex if indic.; Complete Time: 19:40 rt 08/03 18:41 Order name: Protime (+inr); Complete Time: 19:40 rt 08/03 18:41 Order name: Ptt, Activated; Complete Time: 19:40 rt 08/03 18:41 Order name: Troponin High Sensitivity; Complete Time: 19:40 rt 08/03 18:41 Order name: Chest Single View XRAY; Complete Time: 20:27 rt 08/03 18:41 Order name: EKG; Complete Time: 18:42 rt 08/03 20:45 Order name: CONS Physician Consult EDMS 08/03 18:41 Order name: Accucheck; Complete Time: 20:46 rt 08/03 18:41 Order name: Cardiac monitoring; Complete Time: 18:45 rt 08/03 18:41 Order name: EKG - Nurse/Tech; Complete Time: 18:45 rt 08/03 18:41 Order name: IV Saline Lock - Large Bore; Complete Time: 18:59 rt 08/03 18:41 Order name: Labs collected and sent; Complete Time: 18:59 rt 08/03 18:41 Order name: O2 Per Protocol; Complete Time: 18:45 rt 08/03 18:41 Order name: O2 Sat Monitoring; Complete Time: 18:45 rt 08/03 18:41 Order name: Vital Signs; Complete Time: 18:59 rt EC:37 Rate is 72 beats/min. Rhythm is regular, Normal Sinus Rhythm with Right bundle branch rt block. QRS Meridian is Normal. MN interval is normal. QRS interval is normal. QT interval is normal. No Q waves. No ST changes noted. Administered Medications: :31 Drug: DuoNeb Nebulize (3:1) (2.5 mg - 0.5 mg) 3 ml Nebulizer once Route: Nebulizer; jb4 20:18 Follow up: Response: No adverse reaction; Marked relief of symptoms; Wheezing diminishedjb4 19:31 Drug: MethylPrednisoLONE IVP 125 mg IVP once Route: IVP; Site: right hand; jb4 20:18 Follow up: Response: No adverse reaction; Marked relief of symptoms jb4 19:31 Drug: Acetaminophen PO 1000 mg PO once Route: PO; jb4 20:17 Follow up: Response: No adverse reaction; Marked relief of symptoms; Temperature is jb4 decreased 19:32 Drug: LevaQUIN IVPB 750 mg IVPB once Route: IVPB; Site: right hand; jb4 21:02 Follow up: Response: No adverse reaction; IV Status: Completed infusion; IV Intake: jb4 150ml Disposition Summary: 08/04/23 20:31 Hospitalization Ordered Notes: Hospitalization Status: Inpatient Admission rt Provider: Jose Alejandro Shaikh rt Location: Telemetry/[facility] (Inpatient) rt Condition: Stable rt Problem: new rt Symptoms: have improved rt Bed/Room Type: Standard rt Room Assignment: 426(08/04/23 22:17) cg Diagnosis - Lobar pneumonia, unspecified organism rt Forms: - Medication Reconciliation Form rt - SBAR form rt - Leadership Thank You Letter rt Signatures: Dispatcher [employer] Willow Reddy RN RN Mart Delong RN RN jb4 Tracey Guillaume RN RN ll1 Mario Fraire MD MD rt Corrections: (The following items were deleted from the chart) 22:17 20:31 rt cg
--- NOTE | 2023-08-04 20:32 | ER ---
Nurse's Notes [facility] Name: Parish Matthews Age: 78 yrs Sex: Male : 1945 Arrival Date: 08/04/2023 Time: 18:17 Bed 4 Private MD: Diagnosis: Lobar pneumonia, unspecified organism Presentation: 08/03 18:24 Chief complaint: Patient states: Pt c/o cough, congestion, increased difficulty ll1 breathing, sore throat x 2 weeks. Pt states "I have a sinus infection and I'm choking to ". Pt is taking Cefdinir and flonase nasal spray without relief of sxs. Coronavirus screen: congestion, cough unrelated to allergies, shortness of breath. Ebola Screen: No symptoms or risks identified at this time. Initial Sepsis Screen: Does the patient meet any 2 criteria? No. Patient's initial sepsis screen is negative. Does the patient have a suspected source of infection? No. Patient's initial sepsis screen is negative. Risk Assessment: Do you want to hurt yourself or someone else? Patient reports no desire to harm self or others. Onset of symptoms was July 21, 2023. 18:24 Method Of Arrival: Wheelchair ll1 18:24 Acuity: STACY 3 ll1 Triage Assessment: 18:28 General: Appears distressed, Behavior is calm, cooperative. Pain: Complains of pain in ll1 throat. EENT: Reports nasal congestion pain in throat. Neuro: No deficits noted. Cardiovascular: Capillary refill < 3 seconds Patient's skin is warm and dry. Respiratory: Reports shortness of breath cough that is Onset: The symptoms/episode began/occurred 2 weeks ago, the patient has moderate shortness of breath. GI: No deficits noted. No signs and/or symptoms were reported involving the gastrointestinal system. : No deficits noted. No signs and/or symptoms were reported regarding the genitourinary system. Derm: No deficits noted. No signs and/or symptoms reported regarding the dermatologic system. Historical: - Allergies: 18:27 antihisamines; ll1 - PMHx: 18:27 AV fistula to left arm; Dialysis; M; Gout; knee; Pneumonia; Sleep Apnea; ll1 - PSHx: 18:27 Cholecystectomy; hernia; ll1 - Immunization history:: Adult Immunizations unknown. - Social history:: Smoking status: Patient denies any tobacco usage or history of. - Family history:: not pertinent. Screenin:32 [facility] ED Fall Risk Assessment (Adult) History of falling in the last 3 months, jb4 including since admission No falls in past 3 months (0 pts) Confusion or Disorientation No (0 pts) Intoxicated or Sedated No (0 pts) Impaired Gait No (0 pts) Mobility Assist Device Used No (0 pt) Altered Elimination No (0 pt) Score/Fall Risk Level 0 - 2 = Low Risk Oriented to surroundings, Maintained a safe environment. Abuse screen: Denies threats or abuse. Nutritional screening: No deficits noted. Tuberculosis screening: No symptoms or risk factors identified. Assessment: 18:58 Neuro: No deficits noted. Level of Consciousness is awake, alert, obeys commands, kd3 Oriented to person, place, time, situation. Cardiovascular: Capillary refill < 3 seconds Rhythm is regular. Respiratory: Airway is patent Trachea midline Respiratory effort is even, unlabored, Breath sounds with wheezes bilaterally. 19:33 Reassessment: Patient appears in no apparent distress at this time. Patient and/or jb4 family updated on plan of care and expected duration. Pain level reassessed. Patient is alert, oriented x 3, equal unlabored respirations, skin warm/dry/pink. 20:11 Reassessment: Patient appears in no apparent distress at this time. Patient and/or jb4 family updated on plan of care and expected duration. Pain level reassessed. Patient is alert, oriented x 3, equal unlabored respirations, skin warm/dry/pink. Patient states feeling better. Patient states symptoms have improved. 21:18 Reassessment: Patient appears in no apparent distress at this time. Patient and/or jb4 family updated on plan of care and expected duration. Pain level reassessed. Patient is alert, oriented x 3, equal unlabored respirations, skin warm/dry/pink. Vital Signs: 18:24 BP 122 / 50; Pulse 83; Resp 22; Temp 100.2(TE); Pulse Ox 99% on R/A; Pain 7/10; ll1 19:00 BP 135 / 67; Pulse 88; Resp 23; Pulse Ox 94% on R/A; kd3 20:11 BP 103 / 57; Resp 23; Temp 99.3; Pulse Ox 94% on R/A; jb4 21:18 BP 124 / 65; Pulse 79; Resp 16; Pulse Ox 94% on R/A; jb4 18:24 Pain Scale: Adult ll1 ED Course: 18:20 Patient arrived in ED. mg5 18:27 Triage completed. ll1 18:28 Mario Fraire MD is Attending Physician. rt 18:29 Arm band placed on left wrist. ll1 18:45 EKG done, by ED staff, reviewed by Mario Fraire MD. Thermoregulation: warm blanket hb given to patient. 18:57 Ashlyn Perez, RN is Primary Nurse. kd3 18:57 No provider procedures requiring assistance completed. Inserted saline lock: 22 gauge kd3 in right hand, using aseptic technique. Blood collected. Missed attempt(s): 20 gauge in right forearm. 18:57 Initial lab(s) drawn, by me, sent to lab. First set of blood cultures drawn by me, kd3 Second set of blood cultures drawn by me. 18:59 Ptt, Activated Sent. kd3 18:59 Protime (+inr) Sent. kd3 18:59 Lactate w/ 2H reflex if indic. Sent. kd3 18:59 CMP Sent. kd3 18:59 CBC with Diff Sent. kd3 18:59 Blood Culture Adult (2) Sent. kd3 18:59 Troponin High Sensitivity Sent. kd3 19:32 Patient has correct armband on for positive identification. Placed in gown. Bed in low jb4 position. Call light in reach. Side rails up X 1. Provided Education on: treatment plan and expected wait time.. Report received from VANDANA Goldberg. 19:33 Primary Nurse role handed off by Ashlyn Perez, VANDANA jb4 19:33 Mart Mooney, RN is Primary Nurse. jb4 19:46 Chest Single View XRAY In Process Unspecified. EDMS 20:30 Jose Alejandro Shaikh MD is Hospitalizing Provider. rt 23:13 Patient admitted, IV remains in place. cm10 Administered Medications: 19:31 Drug: DuoNeb Nebulize (3:1) (2.5 mg - 0.5 mg) 3 ml Nebulizer once Route: Nebulizer; jb4 20:18 Follow up: Response: No adverse reaction; Marked relief of symptoms; Wheezing diminishedjb4 19:31 Drug: MethylPrednisoLONE IVP 125 mg IVP once Route: IVP; Site: right hand; jb4 20:18 Follow up: Response: No adverse reaction; Marked relief of symptoms jb4 19:31 Drug: Acetaminophen PO 1000 mg PO once Route: PO; jb4 20:17 Follow up: Response: No adverse reaction; Marked relief of symptoms; Temperature is jb4 decreased 19:32 Drug: LevaQUIN IVPB 750 mg IVPB once Route: IVPB; Site: right hand; jb4 21:02 Follow up: Response: No adverse reaction; IV Status: Completed infusion; IV Intake: jb4 150ml Medication: 19:33 VIS not applicable for this client. jb4 Intake: 21:02 IV: 150ml; Total: 150ml. jb4 Outcome: 20:31 Decision to Hospitalize by Provider. rt 23:13 Admitted to Tele accompanied by nurse, via wheelchair, room 426, cm10 23:13 Condition: good 23:13 Patient left the ED. 10 Signatures: Dispatcher [employer] EDMS Estelita Ponce RN RN Mart Mooney RN RN jb4 Tracey Guillaume RN RN ll1 Ashlyn Perez RN RN kd3 Mario Fraire MD MD rt Hien Beavers RN RN cm10 Petra Negron mg5
--- NOTE | 2023-08-04 20:49 | P.HP ---
Certification for Inpatient With expected LOS: >2 Midnights Practitioner: I am a practitioner with admitting privileges, knowledge of patient current condition, hospital course, and medical plan of care. Services: Services provided to patient in accordance with Admission requirements found in Title 42 Section 412.3 of the Code of Federal Regulations Patient History Date of Service: 08/04/23 Reason for admission: Shortness of breath History of Present Illness: Patient is 78 years of age with end-stage renal disease complaining of 2-week history of cough congestion increasing shortness of breath and sore throat complaining of a sinus infection and choking spells was treated with cefdinir and Flonase without any relief was admitted with a diagnosis of right lower lobe pneumonia patient has been complaining of postnasal drainage sinus congestion and was treated with nasal steroids and antibiotics again with no relief he got much worse since Monday has been coughing up some productive yellow sputum Allergies Antihistamines - Alkylamine Adverse Reaction (Mild, Verified 02/28/22 03:24) Shortness of breath Home Medications: Albuterol Sulfate [Proair Hfa] 2 inh IH DAILYPRN PRN 02/28/22 Allopurinol 150 mg PO DAILY 02/28/22 Cyanocobalamin (Vitamin B-12) [Vitamin B-12] 2,500 mcg PO DAILY 02/28/22 Duloxetine [Cymbalta *] 20 mg PO DAILY 02/28/22 Esomeprazole Mag Trihydrate [Nexium] 40 mg PO BID 02/28/22 Fluticasone Propionate [Flonase Allergy Relief] 1 spray NS DAILY 02/28/22 Folic Acid/Vitamin B Comp W-C [Nephro-Krystina Tablet] 0.8 mg PO DAILY 02/28/22 Furosemide [Lasix*] 40 mg PO DAILY 02/28/22 Ketogenic Weight Loss Formula 1 tab PO BEDTIME 02/28/22 Magnesium Oxide [Mag-Oxide] 200 mg PO BID 02/28/22 Metoprolol Succinate 25 mg PO DAILY 02/28/22 Neuropathy 900 450 Mg 3 cap PO BID 02/28/22 Ropinirole HCl [Requip] 3 tab PO BEDTIME 02/28/22 Rosuvastatin [Crestor*] 10 mg PO BEDTIME 02/28/22 Sevelamer Carbonate [Renvela*] 3,200 mg PO TIDWM 02/28/22 Ubidecarenone [Co Q-10] 1 tab PO BEDTIME 02/28/22 Ultimate Daily Classic 1 tab PO DAILY 02/28/22 Zinc 1 tab PO DAILY 02/28/22 cloNIDine HCL [Clonidine HCl] 0.1 mg PO TIDP PRN 02/28/22 - Past Medical/Surgical History Diabetic: No -: 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 - Family History Mother -: Cancer Father -: Hypertension Brother -: Heart disease - Social History Alcohol use: No CD- Drugs: No Caffeine use: Yes Review of Systems General: Weakness Respiratory: Cough, Shortness of Breath Physical Examination - Vital Signs Temperature: 100.2 F Blood Pressure: 122/50 Pulse: 83 Respirations: 22 Pulse Ox (%): 99 - Physical Exam General: Alert, Oriented x3 HEENT: Atraumatic Neck: Supple Respiratory: Crackles/rales (Crackles in the right lower lobe) Cardiovascular: No edema, Regular rate/rhythm, Normal S1 S2 - Studies Laboratory Data (last 24 hrs) 08/04/23 08/04/23 08/04/23 18:52 18:52 18:52 WBC 5.20 Hgb 11.6 L Hct 35.0 L Plt Count 169 PT 11.5 INR 1.05 APTT 34.4 Sodium 138 Potassium 3.6 BUN 31 H Creatinine 6.98 H Glucose 118 H Total Bilirubin 0.6 AST 83 H ALT 132 H Alkaline Phosphatase 512 H Assessment and Plan - Problems (Diagnosis) (1) Right lower lobe pneumonia Current Visit: Yes Status: Acute Plan: Patient is 78 years of age with a history of end-stage renal disease on dialysis history of COPD has been sick for about 2 weeks complaining of cough congestion worsening shortness of breath x-ray shows right lower lobe pneumonia Lab abnormalities include abnormal liver function test elevated alkaline phosphatase also has a macrocytic anemia vital signs are stable will also consult nephrology agree with levofloxacin for now Qualifiers: Pneumonia type: due to unspecified organism Qualified Code(s): J18.9 - Pneumonia, unspecified organism (2) Sinusitis Current Visit: Yes Status: Acute Plan: Patient has been complaining of some sinus pressure postnasal drainage worsened since Monday have ordered a sinus x-ray Qualifiers: Chronicity: unspecified (3) Abnormal liver function Current Visit: Yes Status: Acute Plan: Patient has abnormal LFTs may be due to underlying sepsis he has chronically elevated alkaline phosphatase continue to monitor - Advance Directives Does patient have a Living Will: No Does patient have a Durable POA for Healthcare: No
[2023-08-04] MEDS: FLUTICASONE 50MCG NASAL SPRAY NAS SCH (21:15)
[2023-08-04] MEDS ORDERED: OXYMETAZOLINE HCL 0.05% 15ML NAS PRN (21:16)
[2023-08-04] MEDS: ARFORMOTEROL TARTRATE 15 MCG/2 ML VIAL.NEB NEB SCH (21:16)
[2023-08-05 04:35] LABS: Albumin 2.9 g/dL (3.4-5.0); Albumin/Globulin Ratio 0.7 (1.1-1.8); Anion Gap 14.9 mEq/L (5.0-15.0); Bilirubin Total 0.6 mg/dL (0.2-1.0); Globulin 4.1 g/dL (2.3-3.5); Potassium 3.9 mEq/L (3.5-5.1)
[2023-08-05] MEDS: Levofloxacin 250mg IV 250 MG/50 ML BAG IV SCH (05:02)
--- NOTE | 2023-08-05 07:33 | RAD REPORT ---
EXAM DESCRIPTION: RAD - Chest Pa And Lat (2 Views) - 08/05/2023 6:11 am CLINICAL HISTORY: Pneumonia Chest pain. COMPARISON: Chest Single View dated 08/04/2023; Chest Single View dated 03/01/2022; Chest Single View dated 02/27/2022; Chest Pa And Lat (2 Views) dated 10/31/2019 FINDINGS: Small left and a moderate right pleural effusion are present. The lungs are emphysematous. The heart is mildly prominent in size per No displaced fractures. The findings appear stable since 0 08/04/2023 prior study.
--- NOTE | 2023-08-05 07:33 | P.PN ---
Subjective Date of Service: 08/05/23 Chief Complaint: Shortness of breath Subjective: Improving sees Dr. Thurman and Dr. Shaikh, Dialysis M/W/F. States he has home oxygen but until last week hasn't used it in 10 months. Pt states he was tx for a sinus infection with antibiotics 2-3 weeks ago. He states he has really been struggling since Monday (4days ago) Review of Systems 10-point ROS is otherwise unremarkable General: Malaise Respiratory: Cough, SOB with Excertion, As per HPI Cardiovascular: As per HPI Gastrointestinal: As per HPI ( had a recent admission for "stomach bacteria" but pt denies N/V/D except when coughing gags him and he vomits) Physical Examination - Vital Signs Temperature: 98.8 F Blood Pressure: 121/64 Pulse: 77 Respirations: 16 Pulse Ox (%): 94 - Physical Exam General: In no apparent distress, Oriented x3, Other (mild jaundice) HEENT: Atraumatic, Normocephalic Neck: Supple, No LAD Respiratory: Diminished Cardiovascular: No edema, Normal pulses, Regular rate/rhythm Capillary refill: <2 Seconds Gastrointestinal: Soft and benign Musculoskeletal: No clubbing, No swelling Integumentary: No rashes Neurological: Normal speech, Normal tone Lymphatics: No axilla or inguinal lymphadenopathy External genitalia: Deferred Rectal: Deferred - Studies Laboratory Data (last 24 hrs) 08/04/23 08/04/23 08/04/23 18:52 18:52 18:52 WBC 5.20 Hgb 11.6 L Hct 35.0 L Plt Count 169 PT 11.5 INR 1.05 APTT 34.4 Sodium 138 Potassium 3.6 BUN 31 H Creatinine 6.98 H Glucose 118 H Total Bilirubin 0.6 AST 83 H ALT 132 H Alkaline Phosphatase 512 H Assessment And Plan - Plan Problems (Diagnosis) (1) Right lower lobe pneumonia Current Visit: Yes Status: Acute Plan: Levofloxacin for now, blood cultures drawn Brovana as directed Qualifiers: Pneumonia type: due to unspecified organism Qualified Code(s): J18.9 - Pneumonia, unspecified organism (2) Sinusitis Current Visit: Yes Status: Acute Plan: Solumedrol Flonase Patient has been complaining of some sinus pressure postnasal drainage worsened since Wednesday have ordered a sinus x-ray Qualifiers: Chronicity: unspecified (3) Abnormal liver function Current Visit: Yes Status: Acute Plan: Trend LFT Patient has abnormal LFTs may be due to underlying sepsis he has chronically elevated alkaline phosphatase continue to monitor, dialysis 08/04/23 (4) ESRD, left arm fistula, on dialysis Consult Dr. Thurman M/W/F schedule Dialysis yesterday but short term worsening renal function from yesterday. Pt takes Lasix 40mg daily. Steroids placed Appreciate recommendation from Nephrology DVT prophylaxis: Heparin 5000u sc BID GI prophylaxis: Protonix 40mg IV daily Discharge Plan: Home Plan to discharge in: 48 Hours
--- NOTE | 2023-08-05 07:34 | RAD REPORT ---
EXAM DESCRIPTION: RAD - Sinuses Mag[place] Only - 08/05/2023 6:11 am CLINICAL HISTORY: Rule out sinusitis Headache, pain COMPARISON: No comparisons FINDINGS: The visualized paranasal sinuses and mastoids appear clear. No calvarial lesion. IMPRESSION: Negative for sinusitis.
[2023-08-05] MEDS ORDERED: SODIUM CHLORIDE 0.9% 10ML INJ IV PRN (07:40)
[2023-08-05] MEDS ORDERED: cloNIDine HCL 0.1 MG TAB PO PRN ×2 (07:49→20:44)
[2023-08-05] MEDS: PANTOPRAZOLE 40 MG INJ IVP SCH (09:25)
[2023-08-05] MEDS: HEPARIN 5000 UNIT/ML 1 ML VIAL SQ SCH (09:26)
[2023-08-05] MEDS ORDERED: FLUTICASONE 50MCG NASAL SPRAY NAS PRN (20:45)
--- NOTE | 2023-08-05 20:47 | P.CNS ---
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 He is receiving antibiotics. Serum K wnl. Allergies Antihistamines - Alkylamine Adverse Reaction (Mild, Verified 02/28/22 03:24) Shortness of breath Home Medications: Albuterol Sulfate [Proair Hfa] 2 inh IH DAILYPRN PRN 02/28/22 Allopurinol 75 mg PO DAILY 02/28/22 Cyanocobalamin (Vitamin B-12) [Vitamin B-12] 2,000 mcg PO DAILY 02/28/22 Duloxetine [Cymbalta *] 20 mg PO DAILY 02/28/22 Fluticasone Propionate [Flonase Allergy Relief] 1 spray NS PRN 02/28/22 Furosemide [Lasix*] 40 mg PO DAILY 02/28/22 Magnesium Oxide [Mag-Oxide] 200 mg PO BID 02/28/22 Ropinirole HCl [Requip] 3 tab PO BEDTIME 02/28/22 Rosuvastatin [Crestor*] 10 mg PO DAILY 02/28/22 Sevelamer Carbonate [Renvela*] 3,200 mg PO TIDWM 02/28/22 Ubidecarenone [Co Q-10] 1 tab PO BEDTIME 02/28/22 Zinc 1 tab PO DAILY 02/28/22 cloNIDine HCL [Clonidine HCl] 0.1 mg PO PRN PRN 02/28/22 - Past Medical/Surgical History Diabetic: No -: 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 - Family History Mother Medical History: Cancer Father Medical History: Hypertension Brother Medical History: Heart disease - Social History Smoking Status: Unknown if ever smoked Alcohol use: No CD- Drugs: No Caffeine use: Yes Place of Residence: Home Review of Systems General: Malaise Eyes: Unremarkable ENT: Unremarkable Respiratory: Cough, Shortness of Breath Cardiovascular: Unremarkable Gastrointestinal: Unremarkable Genitourinary: Unremarkable Musculoskeletal: Unremarkable Integumentary: Unremarkable Neurological: Unremarkable Lymphatics: Unremarkable Physical Examination Temp Pulse Resp BP Pulse Ox 97.5 F 74 18 152/74 H 94 08/05/23 16:00 08/05/23 16:00 08/05/23 16:00 08/05/23 16:00 08/05/23 16:00 General: Other (appears as his stated age) HEENT: Atraumatic, Normocephalic Neck: Supple Respiratory: Other (symmetric chest expansion) Cardiovascular: No rubs, No murmurs Gastrointestinal: Soft and benign, No guarding Musculoskeletal: No clubbing Integumentary: No warmth Neurological: Normal tone Urinary: Other (no bladder distention) External genitalia: Deferred Rectal: Deferred Conclusions/Impression: # ESRD presumed to be 2/2 Htn, on outpt HD MWF No acute indication for HD today Next HD on Monday # Acute respiratory failure, RLL pneumonia, sinusitis Abx # Anemia Monitor CBC # Htn Continue current med regimen # Renal osteodystrophy Monitor serum calcium and phosphorus
[2023-08-05] MEDS: MAGNESIUM OXIDE 400 MG TAB PO SCH (21:00)
[2023-08-05] MEDS: ROPINIROLE HCL 1 MG TAB PO SCH (21:18)
[2023-08-05] MEDS: ACETAMINOPHEN 325 MG TABLET PO PRN (23:48)
[2023-08-05] MEDS: MELATONIN 5 MG TABLET PO PRN (23:49)
[2023-08-06 03:59] LABS: Absolute Eosinophils 0.1 K/uL (0-0.5); Absolute Lymphocytes (CBC) 1.4 K/uL (0.7-4.9); Absolute Monocytes 0.5 K/uL (0.1-1.3); Absolute Neutrophil 4.1 K/uL (1.8-8.0); Basophils % 0.6 % (0-1.3); Eosinophils % 1.8 % (0-4.4); Hematocrit 31.4 % (39.6-49.0); Hemoglobin 10.7 g/dL (13.6-17.9); Lymphocytes % 22.7 % (15.3-44.8); MCH 34.9 pg (27.0-35.0); MCHC 33.9 g/dL (32.0-36.0); MCV 102.8 fL (80-100); MPV 7.5 fL (7.6-11.3); Monocytes % 8.8 % (3.3-12.3); Neutrophils % 66.1 % (41.7-73.7); Nucleated Red Blood Cells % 0.1 % (0-0); Platelets 167 thou/uL (152-406); RBC Red Blood Cell Count 3.06 M/uL (4.33-5.43); Red Cell Distribution Width 15.2 % (12.1-15.2)
[2023-08-06 04:13] LABS: Albumin 2.8 g/dL (3.4-5.0); Albumin/Globulin Ratio 0.8 (1.1-1.8); Anion Gap 16.7 mEq/L (5.0-15.0); Bilirubin Total 0.5 mg/dL (0.2-1.0); Globulin 3.5 g/dL (2.3-3.5); Magnesium 2.7 mg/dL (1.6-2.4); Potassium 3.7 mEq/L (3.5-5.1); Protein, Total 6.3 g/dL (6.4-8.2)
[2023-08-06] MEDS: SEVELAMER CARBONATE 800 MG TABLET PO SCH (08:29)
[2023-08-06] MEDS: FUROSEMIDE 40 MG TABLET PO SCH (08:29)
[2023-08-06] MEDS: ROSUVASTATIN 10 MG TAB PO SCH (08:30)
[2023-08-06] MEDS: HYDROCODONE/CHLORPHEN 5 ML/OSYR PO ONE (14:05)
--- NOTE | 2023-08-06 19:57 | P.PN ---
Subjective Date of Service: 08/06/23 Chief Complaint: Shortness of breath, cough Subjective: Other (fatigue today) sees Dr. Thurman and Dr. Shaikh, Dialysis M/W/F. States he has home oxygen but until last week hasn't used it in 10 months. Pt states he was tx for a sinus infection with antibiotics 2-3 weeks ago. He states he has really been struggling since Monday (4days ago) 08/06/23 pt states he feels fatigued but okay, still appears slightly jaundiced with right subconjunctival hemorrhage s/p coughing. Liver enzymes are elevated, overload versus hepatic source. Stopped tylenol. No dialysis today, stopped mag ox. Mag level 2.7, creatinine up 10-11 today. Plan scheduled dialysis tomorrow. Review of Systems 10-point ROS is otherwise unremarkable General: Weakness, Malaise Respiratory: As per HPI Neurological: As per HPI Physical Examination - Vital Signs Temperature: 97.6 F Blood Pressure: 151/74 Pulse: 70 Respirations: 16 Pulse Ox (%): 99 - Physical Exam General: Alert, In no apparent distress, Other (appearing ) HEENT: Atraumatic, Normocephalic, Other (subconjunctival hemorrhage to right s/p cough), Scleral icterus Neck: Supple, 2+ carotid pulse no bruit Respiratory: Diminished, Expiratory wheezes Cardiovascular: Normal pulses, Regular rate/rhythm Capillary refill: <2 Seconds Gastrointestinal: Non-distended Musculoskeletal: No clubbing Integumentary: No rashes, Other (mild jaundice) Neurological: Normal speech Lymphatics: No axilla or inguinal lymphadenopathy External genitalia: Deferred Rectal: Deferred Assessment And Plan - Plan Problems (Diagnosis) (1) Right lower lobe pneumonia Current Visit: Yes Status: Acute Plan: Levofloxacin for now, blood cultures drawn - negative for growth 08/06/23 Brovana as directed Neb treatments Tussionex x 1 today 08/06/23 Qualifiers: Pneumonia type: due to unspecified organism Qualified Code(s): J18.9 - Pneumonia, unspecified organism (2) Sinusitis Current Visit: Yes Status: Acute Plan: Solumedrol Flonase Patient has been complaining of some sinus pressure postnasal drainage worsened since Monday - ordered a sinus x-ray "IMPRESSION: Negative for sinusitis." Qualifiers: Chronicity: unspecified (3) Abnormal liver function Current Visit: Yes Status: Acute Plan: Trend LFT Patient has abnormal LFTs may be due to underlying sepsis he has chronically elevated alkaline phosphatase continue to monitor, dialysis 08/04/23, will get dialysis tomorrow, stopped tylenol, stopped Mag ox (4) ESRD, left arm fistula, on dialysis Consult Dr. Thurman M/W/F schedule Dialysis yesterday but short term worsening renal function from yesterday. Pt takes Lasix 40mg daily. Steroids placed Appreciate recommendation from Nephrology DVT prophylaxis: Heparin 5000u sc BID GI prophylaxis: Protonix 40mg IV daily
--- NOTE | 2023-08-06 20:49 | P.PN ---
Subjective Date of Service: 08/06/23 Chief Complaint: Shortness of breath, cough Subjective: No new changes Physical Examination - Vital Signs Temperature: 97.6 F Blood Pressure: 151/74 Pulse: 70 Respirations: 16 Pulse Ox (%): 99 - Physical Exam General: Other (chronically ill-appearing) HEENT: Atraumatic, Normocephalic Neck: Supple Respiratory: Other (symmetric chest expansion) Cardiovascular: No rubs, No murmurs Gastrointestinal: Soft and benign, No guarding Musculoskeletal: No clubbing Integumentary: No warmth Neurological: Normal tone Urinary: Other (no bladder distention) External genitalia: Deferred Rectal: Deferred Assessment And Plan - Plan # ESRD presumed to be 2/2 Htn, on outpt HD MWF No acute indication for HD today Next HD tomorrow Monday # Acute respiratory failure, RLL pneumonia, sinusitis Abx # Anemia Monitor CBC # Htn Continue current med regimen # Renal osteodystrophy Monitor serum calcium and phosphorus
--- NOTE | 2023-08-07 07:13 | RAD REPORT ---
EXAM DESCRIPTION: RAD - Chest Single View - 08/07/2023 5:34 am CLINICAL HISTORY: pneumonia COMPARISON: Chest Pa And Lat (2 Views) dated 08/05/2023; Chest Single View dated 08/04/2023; Chest Sin gle View dated 03/01/2022; Chest Single View dated 02/27/2022; Thorax Wo Con dated 03/02/2022 FINDINGS: Lines: Vascular stent in the left arm. Lungs: Similar consolidation of the right lower lobe. Pleural: Probable loculated right pleural effusion . Small left effusion. Cardiac: Similar size and configuration. Mediastinum: Within normal limits. Bones: No acute fractures. Other: None IMPRESSION: Similar right basilar airspace disease which could represent acute process such as pneum onia. A chronic right pleural effusion with underlying round atelectasis may also be present. Either chest CT or follow-up radiography could better assess.
[2023-08-07 07:33] LABS: Absolute Eosinophils 0.2 K/uL (0-0.5); Absolute Lymphocytes (CBC) 1.3 K/uL (0.7-4.9); Absolute Monocytes 0.4 K/uL (0.1-1.3); Absolute Neutrophil 2.9 K/uL (1.8-8.0); Basophils % 0.8 % (0-1.3); Eosinophils % 4.6 % (0-4.4); Lymphocytes % 27.4 % (15.3-44.8); MCH 34.6 pg (27.0-35.0); MCHC 33.2 g/dL (32.0-36.0); MCV 104.1 fL (80-100); MPV 6.9 fL (7.6-11.3); Monocytes % 8.3 % (3.3-12.3); Neutrophils % 58.9 % (41.7-73.7); Platelets 155 thou/uL (152-406); RBC Red Blood Cell Count 2.88 M/uL (4.33-5.43); Red Cell Distribution Width 15.4 % (12.1-15.2)
[2023-08-07 08:06] LABS: Albumin 2.7 g/dL (3.4-5.0); Albumin/Globulin Ratio 0.8 (1.1-1.8); Anion Gap 19.2 mEq/L (5.0-15.0); Bilirubin Total 0.5 mg/dL (0.2-1.0); Globulin 3.6 g/dL (2.3-3.5); Magnesium 2.7 mg/dL (1.6-2.4); Potassium 4.2 mEq/L (3.5-5.1); Protein, Total 6.3 g/dL (6.4-8.2)
[2023-08-07] MEDS: levoFLOXacin 250 MG TAB PO SCH (09:00)
[2023-08-07] MEDS: PROMETHAZINE-DM 5 ML OSYR PO PRN (09:06)
--- NOTE | 2023-08-07 09:06 | P.PN ---
Subjective Date of Service: 08/07/23 Chief Complaint: Shortness of breath, cough Admitted for pneumonia, sinusitis, abnormal liver function Past medical history of end-stage renal disease on hemodialysis dialysis Monday - Physical Exam General: Alert, In no apparent distress, Other (appearing ) HEENT: Atraumatic, Normocephalic, Other (subconjunctival hemorrhage to right s/p cough), Scleral icterus Neck: Supple, 2+ carotid pulse no bruit Respiratory: Diminished, Expiratory wheezes Cardiovascular: Normal pulses, Regular rate/rhythm Capillary refill: <2 Seconds Gastrointestinal: Non-distended Musculoskeletal: No clubbing Integumentary: No rashes, Other (mild jaundice) Neurological: Normal speech Lymphatics: No axilla or inguinal lymphadenopathy <Xin Wang - Last Filed: 08/07/23 08:59> Date of Service: 08/07/23 <Syed Yan C - Last Filed: 08/07/23 16:24> Review of Systems Per HPI <Xin Wang - Last Filed: 08/07/23 08:59> Physical Examination - Vital Signs Temperature: 98.1 F Blood Pressure: 132/73 Pulse: 82 Respirations: 18 Pulse Ox (%): 98 <Xin Wang - Last Filed: 08/07/23 08:59> Assessment And Plan - Plan Assessment plan End-stage renal disease on hemodialysis Fluid volume overload Elevated BNP BNP 5147, Lasix daily Consult nephrology, Dialysis Monday Sinusitis Acute hypoxic respiratory failure secondary to right lower lobe pneumonia IV antibiotics Levaquin O2 2 L keep sats greater than 90%, nebs Pulmonary consult Dr. Franklin Hyponatremia Sodium 130 Transaminitis Trend DVT heparin Diet renal Full code Disposition Home with spouse Outpatient hemodialysis Discharge Plan: Home - Code Status/Comfort Care Code Status: Full Code Critical Care: No Time Spent Managing PTS Care (In Minutes): 35 <Xin Wang - Last Filed: 08/07/23 08:59> - Plan Pt ru nd examined. I agree with the note by the ICT PROJECT MANAGER. Continue levaquin for pna. Continue HD. Will trend NA. <Syed Yan - Last Filed: 08/07/23 16:24>
--- NOTE | 2023-08-07 09:44 | RAD REPORT ---
EXAM DESCRIPTION: CT - Thorax Con - 08/07/2023 9:16 am CLINICAL HISTORY: R penumonia COMPARISON: Thorax Wo Con dated 03/02/2022; Chest Single View dated 08/07/2023 FINDINGS: Chest Wall: No suspicious thyroid nodules or pathologic lymphadenopathy. Lungs: Bilateral lower lobe subpleural consolidative processes. No evidence of pneumonia. Micronodula rity in the left upper lobe is mostly chronic. Pleura: Chronic bilateral loculated pleural effusions, moderate on the right and small on the left. T hickening of the visceral and parietal pleura. Mediastinum/sandro: No pathologic lymphadenopathy. Pulmonary arteries/Aorta: Limited evaluation without contrast. No aortic aneurysm. Heart: No significant pericardial effusion. Normal heart size. Multi-vessel coronary disease. Upper abdomen: Cholecystectomy. Bones: No acute abnormality. Bridging osteophytes in the spine. All CT scans are performed using dose optimization technique as appropriate and may include automated exposure control or mA/KV adjustment according to patient size. IMPRESSION: Left upper lobe micronodularity is probably chronic, possibly a chronic or indolent infe ctious process. Chronic bilateral pleural effusions with underlying round atelectasis.No findings to suggest an acute pneumonia.
[2023-08-07 12:01] LABS: Hepatitis B Surface Ab - Quant 107.59 mIU/mL (<8.0); Hepatitis B surface AG Interp. Nonreactive (Nonreactive)
[2023-08-07 12:02] LABS: HBsAG Nonreactive Report Report
--- NOTE | 2023-08-07 12:56 | P.PN ---
Subjective Date of Service: 08/07/23 Chief Complaint: Shortness of breath, cough Patient still continues to complain of a chronic cough postnasal drainage no evidence of pneumonia Review of Systems General: Weakness Respiratory: Cough, Shortness of Breath Physical Examination - Vital Signs Temperature: 97.6 F Blood Pressure: 151/74 Pulse: 70 Respirations: 16 Pulse Ox (%): 99 - Physical Exam General: Alert, Oriented x3 HEENT: Normocephalic Neck: Supple Respiratory: Diminished (Diminished on the right side) Cardiovascular: No edema Assessment And Plan - Current Problems (Diagnosis) (1) Sinusitis Current Visit: Yes Status: Acute Plan: No evidence of sinusitis Qualifiers: Chronicity: unspecified (2) Abnormal liver function Current Visit: Yes Status: Acute Plan: Patient has abnormal LFTs may be due to underlying sepsis he has chronically elevated alkaline phosphatase continue to monitor (3) Pleural effusion Current Visit: Yes Status: Acute Plan: Patient is 78 years of age he has chronic bilateral lower lobe effusion with chronically loculated right-sided pleural effusion evidence of pneumonia patient has chronic renal failure on dialysis plan for discharge to [facility] are not needed cough suppression
--- NOTE | 2023-08-07 13:13 | ECHO ---
HEIGHT: 5 ft 8.5 in WEIGHT: 239 lb 14.4 oz DATE OF STUDY: 08/07/[address]: Oleksandr Espitia MD 2-DIMENSIONAL: YES M.MODE: YES DOPPLER: YES COLOR FLOW: YES TDS: PORTABLE: YES DEFINITY: BUBBLE STUDY: DIAGNOSIS: CONGESTIVE HEART FAILURE CARDIAC HISTORY: CATHERIZATION: NO SURGERY: NO PROSTHETIC VALVE: NO PACEMAKER: NO MEASUREMENTS (cm) DIASTOLIC (NORMALS) SYSTOLIC (NORMALS) IVSd 1.3 (0.6-1.2) LA Diam 3.5 (1.9-4.0) LVEF 52% LVIDd 4.0 (3.5-5.7) LVIDs 2.9 (2.0-3.5) %FS 26% LVPWd 1.2 (0.6-1.2) Ao Diam 3.1 (2.0-3.7) 2 DIMENSIONAL ASSESSMENT: RIGHT ATRIUM: NORMAL LEFT ATRIUM: NORMAL RIGHT VENTRICLE: NORMAL LEFT VENTRICLE: NORMAL TRICUSPID VALVE: NORMAL MITRAL VALVE: NORMAL PULMONIC VALVE: NORMAL AORTIC VALVE: NORMAL PERICARDIAL EFFUSION: NONE AORTIC ROOT: NORMAL LEFT VENTRICULAR WALL MOTION: NORMAL DOPPLER/COLOR FLOW: GRADE I DIASTOLIC DYSFUNCTION COMMENTS: 1. NORMAL LEFT VENTRICULAR SYSTOLIC FUNCTION, EJECTION FRACTION 55-60%, NORMAL WALL MOTION 2. GRADE I DIASTOLIC DYSFUNCTION TECHNOLOGIST: EVERETTE BURKS
--- NOTE | 2023-08-08 03:08 | PN ---
Date of Progress Note: 08/07/2023 Chief Complaint: End-stage renal disease, shortness of breath, fluid overload, cough, abdominal dist ention. Review of Systems: The patient denies chest pain, palpitation. He complains of generalized weakness. Denies PND, ortho pnea. Physical Examination: General: Not in acute distress. Lungs: Equal chest expansion. Few rhonchi. Crackles bilaterally present. Heart: S1, S2. Abdomen: Distended. No rebound. No guarding. Extremities: No edema. Impression And Plan: 1.End-stage renal disease, fluid overload. The patient is undergoing dialysis today with ultrafiltr ation. Continue to monitor blood pressure during dialysis. Advanced ultrafiltration to treat fluid overload. The patient will require extra dialysis tomorrow for volume control. Monitor electrolytes . 2.Acute respiratory failure, right lower lobe pneumonia, sinusitis. Continue antibiotics. 3.Anemia due to chronic kidney disease. Monitor CBC. 4.Hypertension. Continue current medication regimen. 5.Renal osteodystrophy. Monitor calcium and phosphorus level. EB/MODL Voice ID: [id number] Report ID: [id number]
--- NOTE | 2023-08-08 06:52 | P.DS ---
Admission Date: 08/04/23 Discharge Date: 08/08/23 Reason for Admission: Shortness of breath, cough Brief History of Present Illness: 78 years of age with end-stage renal disease complaining of 2-week history of cough congestion increasing shortness of breath and sore throat complaining of a sinus infection and choking spells was treated with cefdinir and Flonase without any relief was admitted with a diagnosis of right lower lobe pneumonia patient has been complaining of postnasal drainage sinus congestion and was treated with nasal steroids and antibiotics again with no relief he got much worse since Monday has been coughing up some productive yellow sputum Physical Exam General: Alert, Oriented x3 HEENT: Atraumatic Neck: Supple Respiratory: Crackles/rales (Crackles in the right lower lobe) Cardiovascular: No edema, Regular rate/rhythm, Normal S1 S2 Hospital Course: 78 year-old male patient presented with cough shortness of breath. Was noted to have end-stage renal disease on hemodialysis, sinus infection, right lower lobe pneumonia, abnormal liver enzymes. Condition improved with hemodialysis, IV antibiotics. Patient tolerating diet, stable for discharge to home with follow-up appointment with primary care physician. Follow-up with nephrology after discharge. Completed IV antibiotics upon admission for pneumonia, per pulmonary PROBLEM: End-stage renal disease on hemodialysis Sinusitis Right lower lobe pneumonia Elevated liver enzymes Follow-up with GI Dr. Mensah outpatient for elevated liver enzymes Follow-up with nephrology after discharge Follow-up with pulmonary after discharge Outpatient hemodialysis Monday needs to resume dialysis on Monday Continue home medicines as previously prescribed GOAL: Clear understanding of disease process INSTRUCTIONS: Physician Discharge Instructions: -Follow-up with PCP in 1 to 2 weeks -Please call if any questions regarding hospital stay -Please call nursing station at [phone] if any nursing or medication questions -Return to the emergency room if symptoms worsen Diet: ADA, low sodium Activity: Fall precautions <Xin Wang - Last Filed: 08/08/23 15:50> Admission Date: 08/04/23 Discharge Date: 08/08/23 Hospital Course: Pt seen and examined. I agree with the note by the QUALITY ASSURANCE ASSISTANT. Complete levaquin course at home. Ok to discharge pt. <Syed Yan - Last Filed: 08/08/23 21:17> Disposition: ROUTINE DISCHARGE Discharge Condition: GOOD Vital Signs/Physical Exam: Temp Pulse Resp BP Pulse Ox 97.5 F 89 18 133/68 95 08/08/23 04:00 08/08/23 04:00 08/08/23 04:00 08/08/23 04:00 08/08/23 04:00 Laboratory Data at Discharge: WBC 4.90 thou/uL (4.3-10.9) 08/07/23 06:45 Hgb 10.0 g/dL (13.6-17.9) L 08/07/23 06:45 Hct 30.0 % (39.6-49.0) L 08/07/23 06:45 Plt Count 155 thou/uL (152-406) 08/07/23 06:45 PT 11.5 SECONDS (9.5-12.5) 08/04/23 18:52 INR 1.05 08/04/23 18:52 APTT 34.4 SECONDS (24.3-36.9) 08/04/23 18:52 Sodium 130 mEq/L (136-145) L D 08/07/23 06:45 Potassium 4.2 mEq/L (3.5-5.1) D 08/07/23 06:45 BUN 89 mg/dL (7-18) H 08/07/23 06:45 Creatinine 12.10 mg/dL (0.70-1.30) H 08/07/23 06:45 Glucose 360 mg/dL (74-106) H 08/07/23 06:45 Magnesium 2.7 mg/dL (1.6-2.4) H 08/07/23 06:45 Total Bilirubin 0.5 mg/dL (0.2-1.0) 08/07/23 06:45 AST 92 U/L (15-37) H 08/07/23 06:45 ALT 142 U/L (16-61) H 08/07/23 06:45 Alkaline Phosphatase 394 U/L (45-117) H 08/07/23 06:45 <Xin Wang - Last Filed: 08/08/23 15:50> Vital Signs/Physical Exam: Temp Pulse Resp BP Pulse Ox 97.5 F 89 20 112/65 97 08/08/23 12:00 08/08/23 12:00 08/08/23 12:00 08/08/23 12:00 08/08/23 12:00 Laboratory Data at Discharge: WBC 5.90 thou/uL (4.3-10.9) 08/08/23 06:22 Hgb 11.2 g/dL (13.6-17.9) L D 08/08/23 06:22 Hct 33.1 % (39.6-49.0) L 08/08/23 06:22 Plt Count 163 thou/uL (152-406) 08/08/23 06:22 PT 11.5 SECONDS (9.5-12.5) 08/04/23 18:52 INR 1.05 08/04/23 18:52 APTT 34.4 SECONDS (24.3-36.9) 08/04/23 18:52 Sodium 134 mEq/L (136-145) L D 08/08/23 06:22 Potassium 4.2 mEq/L (3.5-5.1) 08/08/23 06:22 BUN 62 mg/dL (7-18) H 08/08/23 06:22 Creatinine 10.00 mg/dL (0.70-1.30) H 08/08/23 06:22 Glucose 98 mg/dL (74-106) 08/08/23 06:22 Magnesium 2.7 mg/dL (1.6-2.4) H 08/07/23 06:45 Total Bilirubin 0.6 mg/dL (0.2-1.0) 08/08/23 06:22 AST 87 U/L (15-37) H 08/08/23 06:22 ALT 130 U/L (16-61) H 08/08/23 06:22 Alkaline Phosphatase 443 U/L (45-117) H 08/08/23 06:22 <Syed Yan - Last Filed: 08/08/23 21:17> Diet: Renal Activity: Fall precautions Time spent managing pt's care (in minutes): 55 <Xin Wang - Last Filed: 08/08/23 15:50> <Syed Yan - Last Filed: 08/08/23 21:17> Home Medications: Albuterol Sulfate [Proair Hfa] 2 inh IH DAILYPRN PRN 02/28/22 Allopurinol 75 mg PO DAILY 02/28/22 Cyanocobalamin (Vitamin B-12) [Vitamin B-12] 2,000 mcg PO DAILY 02/28/22 Duloxetine [Cymbalta *] 20 mg PO DAILY 02/28/22 Fluticasone Propionate [Flonase Allergy Relief] 1 spray NS PRN 02/28/22 Furosemide [Lasix*] 40 mg PO DAILY 02/28/22 Magnesium Oxide [Mag-Oxide] 200 mg PO BID 02/28/22 Sevelamer Carbonate [Renvela*] 3,200 mg PO TIDWM 02/28/22 Ubidecarenone [Co Q-10] 1 tab PO BEDTIME 02/28/22 Zinc 1 tab PO DAILY 02/28/22 cloNIDine HCL [Clonidine HCl] 0.1 mg PO PRN PRN 02/28/22 Albuterol Sulfate [Proair Hfa] 8.5 gm IH Q4H PRN 30 Days #1 inh 08/08/23 Arformoterol Tartrate [Brovana] 15 mcg IH BID 30 Days #1 vial.neb 08/08/23 Rosuvastatin [Crestor*] 10 mg PO DAILY 30 Days #30 tab 08/08/23 New Medications: Arformoterol Tartrate [Brovana] 15 mcg IH BID 30 Days #1 vial.neb Rosuvastatin [Crestor*] 10 mg PO DAILY 30 Days #30 tab Albuterol Sulfate [Proair Hfa] 8.5 gm IH Q4H PRN 30 Days #1 inh PRN Reason: Shortness Of Breath Physician Discharge Instructions: 78 year-old male patient presented with cough shortness of breath. Was noted to have end-stage renal disease on hemodialysis, sinus infection, right lower lobe pneumonia, abnormal liver enzymes. Condition improved with hemodialysis, IV antibiotics. Patient tolerating diet, stable for discharge to home with follow-up appointment with primary care physician. Follow-up with nephrology after discharge. Completed IV antibiotics upon admission for pneumonia, per pulmonary PROBLEM: End-stage renal disease on hemodialysis Sinusitis Right lower lobe pneumonia Elevated liver enzyme Follow-up outpatient with GI Dr. Mensah for evaluation of elevated liver enzyme Follow-up with nephrology after discharge Follow-up with pulmonary after discharge Outpatient hemodialysis Monday needs to resume dialysis on Monday Continue home medicines as previously prescribed GOAL: Clear understanding of disease process INSTRUCTIONS: Physician Discharge Instructions: -Follow-up with PCP in 1 to 2 weeks -Please call if any questions regarding hospital stay -Please call nursing station at [phone] if any nursing or medication questions -Return to the emergency room if symptoms worsen Diet: ADA, low sodium Activity: Fall precautions Followup: Jose Alejandro Shaikh MD [ACTIVE - CAN ADMIT] - 1-2 Weeks (call to schedule an appointment) Ruth Frias MD [Primary Care Provider] - 1-2 Weeks (call to schedule an appointment) Jose Dumont [ACTIVE - CAN ADMIT] - 1-2 Weeks (call to schedule an appointment) Cristóbal Shore MD [OUTSIDE PHYSICIAN] - 1-2 Weeks (call to schedule and appointment)
[2023-08-08 07:03] LABS: Absolute Eosinophils 0.3 K/uL (0-0.5); Absolute Lymphocytes (CBC) 1.4 K/uL (0.7-4.9); Absolute Monocytes 0.6 K/uL (0.1-1.3); Absolute Neutrophil 3.6 K/uL (1.8-8.0); Basophils % 0.5 % (0-1.3); Eosinophils % 4.6 % (0-4.4); Hematocrit 33.1 % (39.6-49.0); Hemoglobin 11.2 g/dL (13.6-17.9); Lymphocytes % 24.1 % (15.3-44.8); MCH 34.6 pg (27.0-35.0); MCHC 33.8 g/dL (32.0-36.0); MCV 102.5 fL (80-100); MPV 7.1 fL (7.6-11.3); Monocytes % 10.2 % (3.3-12.3); Neutrophils % 60.6 % (41.7-73.7); Nucleated Red Blood Cells % 0.1 % (0-0); Platelets 163 thou/uL (152-406); RBC Red Blood Cell Count 3.23 M/uL (4.33-5.43); Red Cell Distribution Width 14.9 % (12.1-15.2)
[2023-08-08 07:21] LABS: Albumin/Globulin Ratio 0.8 (1.1-1.8); Anion Gap 11.2 mEq/L (5.0-15.0); Bilirubin Total 0.6 mg/dL (0.2-1.0); Potassium 4.2 mEq/L (3.5-5.1)
--- NOTE | 2023-08-08 08:34 | RAD REPORT ---
EXAM DESCRIPTION: US - Abdomen Exam Complete - 08/08/2023 5:37 am CLINICAL HISTORY: ascites , abdominal pain COMPARISON: Abdomen Pelvis Wo Contrast dated 09/01/2021; Thorax Wo Con dated 08/07/2023 TECHNIQUE: Sonographic grayscale and color flow images of the abdomen were obtained. FINDINGS: Evaluation of the midline structures reveals normal appearance of the visualized aspects o f the pancreatic head. The visualized aspects of the aorta are of normal caliber. The liver is normal in size with smooth contour. Normal echogenicity and texture. No focal lesions. No intrahepatic biliary ductal dilation. Spleen is normal in size and shows no focal suspicious findings. Gallbladder was surgically removed. Common bile duct measures 3 mm, normal, with no common duct stone identified. No hydronephrosis or suspicious mass in either kidney. Mildly atrophic left kidney. Cortical thinning and markedly echogenic renal cortex bilaterally. Bilateral renal cortical cysts, largest on the righ t is interpolar measuring 2.6 cm, and largest on the left measures 1.6 cm. No echogenic calculi. No ascites or bulky lymphadenopathy. IMPRESSION: Bilateral renal cortical thinning and markedly echogenic signal of the cortex. Mild left renal atrophy. Findings suggest sequelae of chronic medical renal disease. Incidentally noted bilateral renal cysts. Status post cholecystectomy.
[2023-08-08 11:59] VITALS: BMI 35.4
[2023-08-08 13:03] VITALS: O2SAT 97
[2023-08-08 13:05] VITALS: BP 112/65; TEMP 97.5
--- NOTE | 2023-08-08 14:15 | EKG ---
Test Date: 2023-08-04 Test Time: 17:42:12 Mixer Lever Operator: HB MEASUREMENT RESULTS: Intervals: Rate: 72 MN: 178 QRSD: 156 QT: 420 QTc: 459 [place]: P: 27 MN: 178 QRS: 1 T: 53 INTERPRETIVE STATEMENTS: Normal sinus rhythm Right bundle branch block Abnormal ECG Compared to ECG 02/27/2022 23:28:54 Sinus bradycardia no longer present Electronically Signed On 08-08-23 14:08:00 CDT by Andry Desouza
== END 2023-08-08 14:00 | disposition home or self-care (01) | DRG 193 ==
LOC: ER 18:17 → ERHOLD 20:42 → 4TH 22:54
PROVIDERS: ADMIT Internal Medicine Sleep Medicine; ATTEND Hospitalist
PROC: 5A1D70Z Performance of Urinary Filtration, Intermittent, Less than 6 Hours Per Day (ICD-10-PCS; principal; 2023-08-04)
DX: J18.9 Pneumonia, unspecified organism (principal); J96.01 Acute respiratory failure with hypoxia; N18.6 End stage renal disease; J44.0 Chronic obstructive pulmonary disease with (acute) lower respiratory infection; I12.0 Hypertensive chronic kidney disease with stage 5 chronic kidney disease or end stage renal disease; E87.1 Hypo-osmolality and hyponatremia; E11.22 Type 2 diabetes mellitus with diabetic chronic kidney disease; D63.1 Anemia in chronic kidney disease; D50.9 Iron deficiency anemia, unspecified; N25.0 Renal osteodystrophy; E87.70 Fluid overload, unspecified; M10.9 Gout, unspecified; E78.5 Hyperlipidemia, unspecified; G25.81 Restless legs syndrome; R94.5 Abnormal results of liver function studies; R74.01 Elevation of levels of liver transaminase levels; Z99.2 Dependence on renal dialysis; Z88.8 Allergy status to other drugs, medicaments and biological substances; Z99.81 Dependence on supplemental oxygen; Z90.49 Acquired absence of other specified parts of digestive tract; Z79.899 Other long term (current) drug therapy
CPT/HCPCS: 36415; 70210; 71045; 71046; 71250; 76700; 80053; 83605; 83735; 83880; 84484; 85025; 85610; 85730; 86706; 87040; 87340; 90935; 93005; 93306; 94640; 96365; 96375; 99285; C9113; J1644; J2930; J7605; J7613; J7644

== ENCOUNTER 2024-01-18 10:11 | Emergency (ER) | payer OTHER ==
[2024-01-18] MEDS ORDERED: MECLIZINE HCL 12.5 MG TAB ONE (10:34)
--- NOTE | 2024-01-18 10:53 | RAD REPORT ---
EXAM DESCRIPTION: CT - Head Brain Wo Cont - 01/18/2024 10:38 am CLINICAL HISTORY: DIZZINESS Headache, drowsiness COMPARISON: Sinus Wo Cont dated 12/10/2019; Sinus Wo Cont dated 11/05/2015 TECHNIQUE: All CT scans are performed using dose optimization technique as appropriate and may inclu de automated exposure control or mA/KV adjustment according to patient size. FINDINGS: No intracranial hemorrhage, hydrocephalus or extra-axial fluid collection.No areas of brai n edema or evidence of midline shift. The paranasal sinuses and mastoids are clear. The calvarium is intact. IMPRESSION: No acute intracranial abnormality.
--- NOTE | 2024-01-18 10:55 | RAD REPORT ---
EXAM DESCRIPTION: RAD - Chest Single View - 01/18/2024 10:44 am CLINICAL HISTORY: near syncope Chest pain. COMPARISON: Chest Single View dated 08/07/2023; Chest Pa And Lat (2 Views) dated 08/05/2023; Chest Sin gle View dated 08/04/2023; Chest Single View dated 03/01/2022; Thorax Wo Con dated 08/07/2023 FINDINGS: Portable technique limits examination quality. Right lower lobe pleural and parenchymal opacification is present appearing similar to 08/07/2023 and presumed chronic. There is also a small left pleural effusion noted. The lungs otherwise show no new finding.The heart is mildly prominent. Aortic atherosclerosis. IMPRESSION: Chronic bilateral pleural effusions and parenchymal opacification right lower lobe. No a cute process definitively seen.
[2024-01-18 11:11] LABS: Absolute Basophils 0.1 K/uL (0-0.5); Absolute Eosinophils 0.4 K/uL (0-0.5); Absolute Lymphocytes (CBC) 1.4 K/uL (0.7-4.9); Absolute Monocytes 0.4 K/uL (0.1-1.3); Absolute Neutrophil 3.8 K/uL (1.8-8.0); Basophils % 1.1 % (0-1.3); Eosinophils % 6.8 % (0-4.4); Hematocrit 35.3 % (39.6-49.0); Hemoglobin 11.3 g/dL (13.6-17.9); Lymphocytes % 22.8 % (15.3-44.8); MCH 33.4 pg (27.0-35.0); MCHC 32.1 g/dL (32.0-36.0); MCV 104.2 fL (80-100); Monocytes % 7.1 % (3.3-12.3); Neutrophils % 62.2 % (41.7-73.7); Platelets 217 thou/uL (152-406); RBC Red Blood Cell Count 3.39 M/uL (4.33-5.43); Red Cell Distribution Width 15.6 % (12.1-15.2)
[2024-01-18] MEDS ORDERED: ACETAMINOPHEN 500 MG TAB ONE (11:30)
[2024-01-18 11:33] LABS: Albumin 3.5 g/dL (3.4-5.0); Albumin/Globulin Ratio 0.8 (1.1-1.8); Anion Gap 17.6 mEq/L (5.0-15.0); Bilirubin Direct 0.2 mg/dL (0-0.2); Bilirubin Indirect, Calculated 0.3 mg/dL (0.2-0.8); Bilirubin Total 0.5 mg/dL (0.2-1.0); Globulin 4.2 g/dL (2.3-3.5); Magnesium 2.5 mg/dL (1.6-2.4); Potassium 4.6 mEq/L (3.5-5.1); Protein, Total 7.7 g/dL (6.4-8.2); Troponin High Sensitivity 22.9 pg/mL (<58.9)
--- NOTE | 2024-01-18 13:16 | EDPHYS ---
Physician Documentation [facility] Name: Parish Matthews Age: 78 yrs Sex: Male : 1945 Arrival Date: 01/18/2024 Time: 10:11 Bed 13 Private MD: ED Physician Mario Fraire HPI: 01/17 11:07 This 78 yrs old Male presents to ER via Ambulatory with complaints of Dizziness, rt Abnormal EKG. 11:07 Patient presents to the ED with dizziness, unsteadiness on his feet for about 1 week. rt He went to the primary care's office today, was found to have a right bundle branch block., Last went to dialysis on Monday. Denies other acute complaints at this time, symptoms are moderate in severity, no other aggravating or alleviating factors.. 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 - Infectious Disease History:: Denies. - Social history:: Smoking status: Patient denies any tobacco usage or history of. - Family history:: not pertinent. ROS: 11:07 Constitutional: Negative for fever, chills, and weight loss, Cardiovascular: Negative rt for chest pain, palpitations, and edema, Abdomen/GI: Negative for abdominal pain, nausea, vomiting, diarrhea, and constipation, MS/Extremity: Negative for injury and deformity, Skin: Negative for injury, rash, and discoloration, 11:07 Respiratory: Positive for shortness of breath, Negative for cough, 11:07 Neuro: Positive for near syncope, Negative for loss of consciousness, Exam: 11:07 Constitutional: This is a well developed, well nourished patient who is awake, alert, rt and in no acute distress. Head/Face: Normocephalic, atraumatic. Chest/axilla: Normal chest wall appearance and motion. Nontender with no deformity. No lesions are appreciated. Cardiovascular: Regular rate and rhythm with a normal S1 and S2. No gallops, murmurs, or rubs. Normal PMI, no JVD. No pulse deficits. Respiratory: Lungs have equal breath sounds bilaterally, clear to auscultation and percussion. No rales, rhonchi or wheezes noted. No increased work of breathing, no retractions or nasal flaring. Abdomen/GI: Soft, non-tender, with normal bowel sounds. No distension or tympany. No guarding or rebound. No evidence of tenderness throughout. Skin: Warm, dry with normal turgor. Normal color with no rashes, no lesions, and no evidence of cellulitis. MS/ Extremity: Pulses equal, no cyanosis. Neurovascular intact. Full, normal range of motion. Neuro: Awake and alert, GCS 15, oriented to person, place, time, and situation. Cranial nerves II-XII grossly intact. Motor strength 5/5 in all extremities. Sensory grossly intact. Cerebellar exam normal. Normal gait. 11:07 ECG was reviewed by the Attending Physician. Vital Signs: 10:23 BP 145 / 67; Pulse 54; Resp 18; Temp 98; Pulse Ox 96% on R/A; Weight 114.31 kg; Height ll1 5 ft. 8 in. ; Pain 8/10; 12:00 BP 140 / 72; Pulse 61; Resp 17; Pulse Ox 98% on R/A; rs5 13:10 BP 149 / 77; Pulse 66; Resp 17; Pulse Ox 98% on R/A; rs5 10:23 Body Mass Index 38.32 (114.31 kg, 172.72 cm) ll1 10:23 Pain Scale: Adult ll1 MDM: 10:16 Patient medically screened. rt 15:42 Differential diagnosis: Dysrhythmia, dizziness, anemia, ACS. Data reviewed: vital rt signs, nurses notes, lab test result(s), EKG, radiologic studies. Consideration of Admission/Observation Escalation of care including admission/observation considered. Stable vital signs, symptoms improving in the ED, he was steady on his feet during road test. The right bundle branch block is pre-existing. Rest of workup is benign. No indications for admission at this time. Will get patient to his dialysis session in the afternoon.. I considered the following discharge prescriptions or medication management in the emergency department Medications were administered in the Emergency Department. See MAR. Independent interpretation of the following test(s) in the Emergency Department CT Scan: My interpretation is No intracranial hemorrhage seen on interpretation of CT scan. Care significantly affected by the following chronic conditions: Chronic Kidney Disease. Counseling: I had a detailed discussion with the patient and/or guardian regarding the historical points, exam findings, and any diagnostic results supporting the discharge/admit diagnosis, lab results, radiology results, the need for outpatient follow up, to return to the emergency department if symptoms worsen or persist or if there are any questions or concerns that arise at home. Response to treatment: the patient's symptoms have markedly improved after treatment. 01/17 10:28 Order name: Basic Metabolic Panel; Complete Time: 11:39 rt 01/17 10:28 Order name: CBC with Diff; Complete Time: 11:32 rt 01/17 10:28 Order name: LFT's; Complete Time: 11:39 rt 01/17 10:28 Order name: Magnesium; Complete Time: 11:39 rt 01/17 10:28 Order name: Troponin HS; Complete Time: 11:39 rt 01/17 10:28 Order name: XRAY Chest (1 view) rt 01/17 10:28 Order name: CT Head Brain wo Cont rt 01/17 10:28 Order name: Cardiac monitoring; Complete Time: 10:34 rt 01/17 10:28 Order name: EKG - Nurse/Tech; Complete Time: 10:34 rt 01/17 10:28 Order name: IV Saline Lock; Complete Time: 11:25 rt 01/17 10:28 Order name: Labs collected and sent; Complete Time: 11:25 rt 01/17 10:28 Order name: O2 Per Protocol; Complete Time: 10:34 rt 01/17 10:28 Order name: O2 Sat Monitoring; Complete Time: 10:34 rt EC:07 Rate is 53 beats/min. Rhythm is regular, Sinus bradycardia with No ectopy, Right bundle rt branch block. QRS Bryant is Normal. MT interval is normal. QRS interval is normal. QT interval is normal. No Q waves. No ST changes noted. Interpreted by me. Administered Medications: 11:25 Drug: Meclizine PO 50 mg PO once Route: PO; rs5 12:22 Follow up: Response: No adverse reaction rs5 11:25 Drug: Acetaminophen PO 1000 mg PO once Route: PO; rs5 12:22 Follow up: Response: No adverse reaction; Pain is decreased rs5 Disposition Summary: 01/18/24 13:15 Discharge Ordered Notes: Location: Home rt Problem: new rt Symptoms: have improved rt Condition: Stable rt Diagnosis - Dizziness and giddiness rt Followup: rt - With: Private Physician - When: 2 - 3 days - Reason: Discharge Instructions: - Discharge Summary Sheet rt - Dizziness rt Forms: - Medication Reconciliation Form rt - Antibiotic Education rt - Prescription Opioid Use rt - Patient Portal Instructions rt - Leadership Thank You Letter rt Signatures: Dispatcher [employer] EDMS Tracey Guillaume RN RN ll1 Mario Fraire MD MD rt Pool Johnson RN RN rs5 Corrections: (The following items were deleted from the chart) 10:28 10:28 Chest Single View+RAD.RAD.BRZ ordered. EDMS EDMS 10:28 10:28 Head Brain Wo Cont+CT.RAD.BRZ ordered. EDMS EDMS
--- NOTE | 2024-01-18 13:16 | ER ---
Nurse's Notes [facility] Name: Parish Matthews Age: 78 yrs Sex: Male : 1945 Arrival Date: 01/18/2024 Time: 10:11 Bed 13 Private MD: Diagnosis: Dizziness and giddiness Presentation: 01/17 10:23 Chief complaint: Patient states: Sent in for further evaluation for abnormal EKG (R ll1 BBB). Has dizziness and SOB off/on for 1 week. Coronavirus screen: Client denies travel out of the [place] in the last 14 days. difficulty breathing, shortness of breath, Client presents with at least one sign or symptom that may indicate coronavirus-19. Standard/surgical mask placed on the client. Ebola Screen: Patient denies travel to an Ebola-affected area in the 21 days before illness onset. Initial Sepsis Screen: Does the patient meet any 2 criteria? No. Patient's initial sepsis screen is negative. Does the patient have a suspected source of infection? No. Patient's initial sepsis screen is negative. Risk Assessment: Do you want to hurt yourself or someone else? Patient reports no desire to harm self or others. Onset of symptoms was January 11, 2024. 10:23 Method Of Arrival: Ambulatory ll1 10:23 Acuity: STACY 3 ll1 Triage Assessment: 10:23 General: Appears in no apparent distress. Behavior is calm, cooperative, appropriate ll1 for age. Pain: Complains of pain in back Pain currently is 8 out of 10 on a pain scale. Quality of pain is described as aching. Neuro: Reports dizziness. Respiratory: Reports shortness of breath. Musculoskeletal: Reports pain in back. 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 - Infectious Disease History:: Denies. - Social history:: Smoking status: Patient denies any tobacco usage or history of. - Family history:: not pertinent. Screenin:15 [facility] ED Fall Risk Assessment (Adult) History of falling in the last 3 months, rs5 including since admission Yes- single mechanical fall (1 pt) Confusion or Disorientation No (0 pts) Intoxicated or Sedated No (0 pts) Impaired Gait Yes (1 pt) Mobility Assist Device Used No (0 pt) Altered Elimination No (0 pt) Score/Fall Risk Level 0 - 2 = Low Risk Oriented to surroundings, Maintained a safe environment. Abuse screen: Denies threats or abuse. Nutritional screening: No deficits noted. Tuberculosis screening: No symptoms or risk factors identified. Assessment: 10:15 General: Appears in no apparent distress. uncomfortable, Behavior is calm, cooperative. rs5 Pain: Complains of pain in back Pain currently is 7 out of 10 on a pain scale. Quality of pain is described as aching. Neuro: Level of Consciousness is awake, alert, obeys commands, Oriented to person, place, time, situation. Cardiovascular: Patient's skin is warm and dry. Respiratory: Airway is patent Respiratory effort is even, unlabored, Respiratory pattern is regular, symmetrical. GI: Abdomen is round non-distended, Abd is soft and non tender X 4 quads. : No signs and/or symptoms were reported regarding the genitourinary system. EENT: No signs and/or symptoms were reported regarding the EENT system. Derm: Skin is intact, Skin is pink, warm \T\ dry. Musculoskeletal: Range of motion: intact in all extremities. 11:27 Reassessment: Patient and/or family updated on plan of care and expected duration. Pain rs5 level reassessed. Patient is alert, oriented x 3, equal unlabored respirations, skin warm/dry/pink. 12:31 Reassessment: Patient and/or family updated on plan of care and expected duration. Pain rs5 level reassessed. Patient is alert, oriented x 3, equal unlabored respirations, skin warm/dry/pink. 13:18 Reassessment: No changes from previously documented assessment. rs5 Vital Signs: 10:23 BP 145 / 67; Pulse 54; Resp 18; Temp 98; Pulse Ox 96% on R/A; Weight 114.31 kg; Height ll1 5 ft. 8 in. ; Pain 8/10; 12:00 BP 140 / 72; Pulse 61; Resp 17; Pulse Ox 98% on R/A; rs5 13:10 BP 149 / 77; Pulse 66; Resp 17; Pulse Ox 98% on R/A; rs5 10:23 Body Mass Index 38.32 (114.31 kg, 172.72 cm) ll1 10:23 Pain Scale: Adult ll1 ED Course: 10:13 Patient arrived in ED. mr 10:13 Mario Fraire MD is Attending Physician. rt 10:15 Arm band placed on Patient placed in an exam room, on a stretcher. ll1 10:15 Patient has correct armband on for positive identification. Placed in gown. Bed in low rs5 position. Call light in reach. Side rails up X2. 10:15 No provider procedures requiring assistance completed. rs5 10:24 Triage completed. ll1 10:26 Pool Johnson, RN is Primary Nurse. rs5 10:38 CT Head Brain wo Cont In Process Unspecified. EDMS 10:43 XRAY Chest (1 view) In Process Unspecified. EDMS 13:25 IV discontinued, intact, bleeding controlled, No redness/swelling at site. Pressure rs5 dressing applied. Administered Medications: 11:25 Drug: Meclizine PO 50 mg PO once Route: PO; rs5 12:22 Follow up: Response: No adverse reaction rs5 11:25 Drug: Acetaminophen PO 1000 mg PO once Route: PO; rs5 12:22 Follow up: Response: No adverse reaction; Pain is decreased rs5 Medication: 11:28 VIS not applicable for this client. rs5 Outcome: 13:15 Discharge ordered by . rt 13:25 Discharged to home via wheelchair, with family, rs5 13:25 Condition: stable rs5 13:25 Discharge instructions given to patient, family, Instructed on discharge instructions, follow up and referral plans. Demonstrated understanding of instructions, follow-up care, 13:29 Patient left the ED. rs5 Signatures: Dispatcher [employer] EDPA PeralesDebby parks, Reg Reg Tracey Guillaume, RN RN ll1 Mario Fraire MD MD rt Pool Johnson, VANDANA RN rs5
[2024-01-18 13:34] VITALS: BP 145/67; TEMP 98; O2SAT 96
--- NOTE | 2024-01-19 14:41 | EKG ---
Test Date: 2024-01-18 Test Time: 10:31:17 Psychological Assistant: BRYON MEASUREMENT RESULTS: Intervals: Rate: 53 CA: 198 QRSD: 162 QT: 496 QTc: 465 [place]: P: 76 CA: 198 QRS: 25 T: 65 INTERPRETIVE STATEMENTS: Sinus bradycardia Right bundle branch block Abnormal ECG Compared to ECG 08/04/2023 17:42:12 Sinus rhythm no longer present Electronically Signed On 01-19-24 14:38:53 CDT by Gil Mcmullen
== END 2024-01-18 13:29 | disposition home or self-care (01) ==
LOC: ER 10:11
DX: R42 Dizziness and giddiness (principal); R55 Syncope and collapse; R94.31 Abnormal electrocardiogram [ECG] [EKG]; R06.02 Shortness of breath; Z99.2 Dependence on renal dialysis
CPT/HCPCS: 93005; 85025; 80048; 36415; 83735; 80076; 84484; 70450; 71045; 99283; J8597

== ENCOUNTER 2024-10-10 16:02 | Emergency (ER) | payer OTHER ==
[2024-10-10] MEDS ORDERED: LACTULOSE 20 GM/30 ML UCUP ONE (16:53)
--- NOTE | 2024-10-10 17:21 | RAD REPORT ---
EXAMINATION: CT ABDOMEN AND PELVIS WITHOUT CONTRAST CLINICAL INDICATION: Constipation;Abd pain TECHNIQUE: CT abdomen and pelvis was performed, without IV contrast, as per department protocol. Axia l, sagittal and coronal reconstructions were obtained. One or more of the following dose reduction techniques were used: Automated exposure control, adjustment of the mA and kV according to the patien t size, and iterative reconstruction. Unless otherwise specified, incidental findings do not require dedicated imaging follow-up. COMPARISON: 09/01/2021 FINDINGS: The lack of intravenous contrast limits the sensitivity of this exam for evaluation of solid visceral organs, vascular structures, and retroperitoneum. LOWER CHEST: Moderate right loculated effusion with calcifications along the rim and chronic appearin g atelectasis in the right base. Similar small left-sided chronic-appearing effusion. LIVER:Normal in size and contour. No focal lesion. Cholecystectomy clips. SPLEEN: Normal size. No focal lesion. PANCREAS: No mass, ductal dilation, or cole-pancreatic fluid. ADRENALS: Normal; no mass. KIDNEYS AND URETERS: Marked atrophy of the [place] kidneys. URINARY BLADDER: Normal contour. GASTROINTESTINAL TRACT: No evidence of bowel obstruction, significant free fluid, free air or abscess . There is mild diverticulosis coli of the sigmoid colon without diverticulitis. APPENDIX: Normal appendix. LYMPH NODES: No lymphadenopathy. MUSCULOSKELETAL: Moderate lower lumbar spondylosis with central canal narrowing likely present. ADDITIONAL FINDINGS: Aortoiliac atherosclerosis. IMPRESSION: No acute abnormalities in the abdomen or pelvis, with evaluation limited by lack of IV contrast. Chronic pleural effusion suspected, greater on the right.
--- NOTE | 2024-10-10 17:49 | ER ---
Nurse's Notes [facility] Name: Parish Matthews Age: 79 yrs Sex: Male : 1945 Arrival Date: 10/10/2024 Time: 16:02 Bed IW9 Private MD: Diagnosis: Constipation, unspecified Presentation: 10/10 16:34 Chief complaint: Patient states: Abdominal pain and constipation since Monday night. ll1 No fever. Coronavirus screen: Client denies travel out of the [place] in the last 14 days. At this time, the client does not indicate any symptoms associated with coronavirus-19. Ebola Screen: Patient denies travel to an Ebola-affected area in the 21 days before illness onset. Initial Sepsis Screen: Does the patient meet any 2 criteria? No. Patient's initial sepsis screen is negative. Does the patient have a suspected source of infection? No. Patient's initial sepsis screen is negative. Risk Assessment: Do you want to hurt yourself or someone else? Patient reports no desire to harm self or others. Onset of symptoms was October 08, 2024. 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 - Infectious Disease History:: Denies. - Social history:: Smoking status: Patient denies any tobacco usage or history of. Screenin:49 [facility] ED Fall Risk Assessment (Adult) History of falling in the last 3 months, kc6 including since admission No falls in past 3 months (0 pts) Confusion or Disorientation No (0 pts) Intoxicated or Sedated No (0 pts) Impaired Gait Yes (1 pt) Mobility Assist Device Used Yes (1 pt) Altered Elimination No (0 pt) Score/Fall Risk Level 0 - 2 = Low Risk Oriented to surroundings. Abuse screen: Denies threats or abuse. Denies injuries from another. Nutritional screening: No deficits noted. Tuberculosis screening: No symptoms or risk factors identified. Assessment: 16:58 General: Appears in no apparent distress. comfortable, obese, well groomed, well kc6 developed, Behavior is calm, cooperative, appropriate for age. Pain: Complains of pain in abdomen Pain does not radiate. Neuro: Level of Consciousness is awake, alert, obeys commands, Oriented to person, place, time, situation, Appropriate for age Denies dizziness. Cardiovascular: Denies chest pain, lightheadedness, shortness of breath, Capillary refill < 3 seconds Dialysis shunt: in the left arm, with palpable thrill, with auscultated bruit, with no erythema, with no edema, no bleeding noted. Respiratory: Airway is patent Trachea midline Respiratory effort is even, unlabored, Respiratory pattern is regular, symmetrical. GI: Bowel sounds present X 4 quads. Abd is soft X 4 quads Reports lower abdominal pain, constipation, cramping, Patient currently denies diarrhea, nausea, vomiting. : No signs and/or symptoms were reported regarding the genitourinary system. EENT: No signs and/or symptoms were reported regarding the EENT system. Derm: No signs and/or symptoms reported regarding the dermatologic system. Skin is intact, is healthy with good turgor, Skin is pink, warm \\T\\ dry. Musculoskeletal: No signs and/or symptoms reported regarding the musculoskeletal system. Circulation, motion, and sensation intact. Range of motion: intact in all extremities. 17:48 Reassessment: Patient appears in no apparent distress at this time. No changes from kc6 previously documented assessment. Patient and/or family updated on plan of care and expected duration. Pain level reassessed. Patient is alert, oriented x 3, equal unlabored respirations, skin warm/dry/pink. 18:19 Reassessment: Patient appears in no apparent distress at this time. No changes from kc6 previously documented assessment. Patient and/or family updated on plan of care and expected duration. Pain level reassessed. Patient is alert, oriented x 3, equal unlabored respirations, skin warm/dry/pink. pt requesting fleet enema. pt states, "I'd rather do it here so that way if I have any problems I don't have to come back." NIYAH Terry made aware. 18:45 Reassessment: pt uses call string in the bathroom. pt states, "this hurts so bad, I kc6 feel like I'm about to pass out. everything is black and blurry." pt assisted off the toilet, into a wheelchair and back into bed with VANDANA Graham. pts BP is 82/47. NIYAH Terry made aware. Vital Signs: 16:34 BP 86 / 59; Pulse 63; Resp 18; Temp 97.3; Pulse Ox 94% ; Weight 115.21 kg; Height 5 ft. ll1 8 in. ; Pain 10/10; 16:49 BP 107 / 94; Pulse 55; Resp 16 S; Pulse Ox 96% on R/A; kc6 17:23 BP 111 / 58; Pulse 54; Resp 16 S; Pulse Ox 99% on R/A; kc6 17:48 BP 127 / 79; Pulse 57; Resp 18 S; Pulse Ox 97% on R/A; kc6 18:58 BP 83 / 48; Pulse 56; Resp 16 S; Pulse Ox 99% on 2 lpm NC; kc6 19:03 BP 79 / 50; Pulse 56; Resp 16 S; Pulse Ox 100% on 3 lpm NC; kc6 19:58 BP 100 / 70; Pulse 69; Resp 18; Pulse Ox 100% ; hm5 20:00 BP 142 / 86; Pulse 62; Resp 19; Pulse Ox 98% on 2 lpm NC; hm5 22:00 BP 137 / 71; Pulse 59; Resp 18; Pulse Ox 100% on 2 lpm NC; hm5 22:30 BP 107 / 65; Pulse 78; Resp 19; Pulse Ox 96% on 2 lpm NC; hm5 23:10 BP 121 / 62; Pulse 71; Resp 18; Pulse Ox 97% on 2 lpm NC; hm5 16:34 Body Mass Index 38.62 (115.21 kg, 172.72 cm) ll1 16:34 Pain Scale: Adult ll1 ED Course: 16:04 Patient arrived in ED. al6 16:24 Koki Villalta PA-C [facility]. sb4 16:24 Andrei Bloom MD is Attending Physician. sb4 16:35 Triage completed. ll1 16:49 Twila Lozoya, VANDANA is Primary Nurse. kc6 16:49 Patient has correct armband on for positive identification. Bed in low position. Call kc6 light in reach. Side rails up X2. Pulse ox on. NIBP on. Door closed. Noise minimized. Lights dimmed. Warm blanket given. Pillow given. Verbal reassurance given. 16:49 Patient maintains SpO2 saturation greater than 95% on room air. kc6 16:50 Arm band placed on. kc6 16:54 Radiology exam delayed due to lab results not completed at this time. (BUN/Creatinine) nj IV insertion attempt and/or patient not having appropriate IV at this time. 16:[address] via stretcher. kc6 17:08 CT Abd/Pelvis - Without Contrast In Process Unspecified. EDMS 18:30 Assisted to bathroom. kc6 19:04 Report given to VANDANA Capone. kc6 23:47 Provided Education on: plan of care. 5 23:47 No provider procedures requiring assistance completed. 5 23:47 Patient did not have IV access during this emergency room visit. ha1 Administered Medications: 16:58 Drug: Lactulose PO 30 grams 45 ml PO once Volume: 45 ml; Route: PO; kc6 17:24 Follow up: Response: No adverse reaction kc6 18:19 Drug: Fleet Enema WI 133 ml WI once Route: WI; kc6 18:55 Follow up: Response: No adverse reaction; No change in condition kc6 19:42 Drug: midodrine 5 mg PO once Route: PO; hm5 22:48 Follow up: Response: No adverse reaction; Blood pressure is elevated 5 22:48 Drug: Fleet Enema WI 133 ml WI once Route: WI; hm5 22:49 Follow up: Response: No adverse reaction [facility] Medication: 23:47 VIS not applicable for this client. 5 Outcome: 17:49 Discharge ordered by . sb4 21:43 Discharge ordered by . sb4 22:00 Discharged to home with family, 1 22:00 Condition: stable [facility] 22:00 Discharge instructions given to patient, Instructed on discharge instructions, follow up and referral plans. Demonstrated understanding of instructions, follow-up care, 22:00 Patient left the ED. 1 Signatures: Dispatcher [employer] EDMS Ritesh Cabral Lynsay, VANDANA RN 1 Emma Nixon RN RN 1 Twila Lozoya RN RN kc6 Koki Villalta PA-C PASophie pope4 Esther Gallo okEstelita Bean RN RN 5 Corrections: (The following items were deleted from the chart) 19:04 18:19 Assisted to bedside commode. kc6 kc6 23:48 23:48 Patient left the ED. ha1 ha1
--- NOTE | 2024-10-10 17:49 | EDPHYS ---
Physician Documentation [facility] Name: Parish Matthews Age: 79 yrs Sex: Male : 1945 Arrival Date: 10/10/2024 Time: 16:02 Bed [id number] Private MD: ED Physician Andrei Bloom HPI: 10/10 16:25 This 79 yrs old Male presents to ER via Unassigned with complaints of Abdominal Pain. sb4 17:59 Patient reports constipation and abdominal bloating for 2 days. States his last BM was sb4 yesterday, but it was a very small amount. States he is use suppositories without significant relief in symptoms. Reports rectal pain from straining. Denies any blood when wiping or in his stool. Was discharged from here 2 days ago after treatment of hypotension, was started on p.o. steroid. 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 - Infectious Disease History:: Denies. - Social history:: Smoking status: Patient denies any tobacco usage or history of. ROS: 17:59 Constitutional: Negative for fever, chills, and weight loss, sb4 17:59 Abdomen/GI: Positive for abdominal pain, constipation, abdominal distension, 17:59 All other systems are negative, Exam: 17:59 Head/Face: Normocephalic, atraumatic. Eyes: Extra-ocular motions intact. Periorbital sb4 areas with no swelling, redness, or edema. ENT: Mucous membranes moist. Cardiovascular: Regular rate and rhythm with a normal S1 and S2. Respiratory: No increased work of breathing, no retractions or nasal flaring. Abdomen/GI: Soft, non-tender, no distension. Skin: Warm, dry with normal turgor. Normal color with no rashes, no lesions, and no evidence of cellulitis. 17:59 Constitutional: The patient appears in no acute distress, alert, awake, obese, Vital Signs: 16:34 BP 86 / 59; Pulse 63; Resp 18; Temp 97.3; Pulse Ox 94% ; Weight 115.21 kg; Height 5 ft. ll1 8 in. ; Pain 10/10; 16:49 BP 107 / 94; Pulse 55; Resp 16 S; Pulse Ox 96% on R/A; kc6 17:23 BP 111 / 58; Pulse 54; Resp 16 S; Pulse Ox 99% on R/A; kc6 17:48 BP 127 / 79; Pulse 57; Resp 18 S; Pulse Ox 97% on R/A; kc6 18:58 BP 83 / 48; Pulse 56; Resp 16 S; Pulse Ox 99% on 2 lpm NC; kc6 19:03 BP 79 / 50; Pulse 56; Resp 16 S; Pulse Ox 100% on 3 lpm NC; kc6 19:58 BP 100 / 70; Pulse 69; Resp 18; Pulse Ox 100% ; hm5 20:00 BP 142 / 86; Pulse 62; Resp 19; Pulse Ox 98% on 2 lpm NC; hm5 22:00 BP 137 / 71; Pulse 59; Resp 18; Pulse Ox 100% on 2 lpm NC; hm5 22:30 BP 107 / 65; Pulse 78; Resp 19; Pulse Ox 96% on 2 lpm NC; hm5 23:10 BP 121 / 62; Pulse 71; Resp 18; Pulse Ox 97% on 2 lpm NC; hm5 16:34 Body Mass Index 38.62 (115.21 kg, 172.72 cm) ll1 16:34 Pain Scale: Adult ll1 MDM: 16:35 Medical Screening Exam initiated sb4 18:00 Differential diagnosis: Constipation, fecal impaction, SBO. Data reviewed: vital signs, sb4 nurses notes, radiologic studies, and as a result, I will discharge patient. Care significantly affected by the following chronic conditions: Diabetes, Obesity, Chronic Kidney Disease. Counseling: I had a detailed discussion with the patient and/or guardian regarding the historical points, exam findings, and any diagnostic results supporting the discharge/admit diagnosis, radiology results, the need for outpatient follow up, for definitive care, to return to the emergency department if symptoms worsen or persist or if there are any questions or concerns that arise at home. 10/10 16:45 Order name: CT Abd/Pelvis - Without Contrast; Complete Time: 17:22 sb4 Administered Medications: 16:58 Drug: Lactulose PO 30 grams 45 ml PO once Volume: 45 ml; Route: PO; kc6 17:24 Follow up: Response: No adverse reaction kc6 18:19 Drug: Fleet Enema OH 133 ml OH once Route: OH; kc6 18:55 Follow up: Response: No adverse reaction; No change in condition kc6 19:42 Drug: midodrine 5 mg PO once Route: PO; hm5 22:48 Follow up: Response: No adverse reaction; Blood pressure is elevated hm5 22:48 Drug: Fleet Enema OH 133 ml OH once Route: OH; hm5 22:49 Follow up: Response: No adverse reaction hm5 Disposition Summary: 10/10/24 21:43 Discharge Ordered Problem: new(10/10/24 21:43) sb4 Symptoms: have improved(10/10/24 21:43) sb4 Condition: Stable(10/10/24 21:43) sb4 Diagnosis - Constipation, unspecified(10/10/24 21:43) sb4 Followup: sb4 - With: Private Physician - When: 1 week - Reason: Recheck today's complaints, Re-evaluation by your physician Discharge Instructions: - Discharge Summary Sheet sb4 - Constipation, Adult sb4 Forms: - Patient Portal Instructions sb4 - Leadership Thank You Letter sb4 Prescriptions: - Colace 100 mg Oral Tablet - take 1 tablet ORAL route every 12 hours; 14 tablet; Refills: 0, Product sb4 Selection Permitted Signatures: Dispatcher [employer] EDTracey Damian RN RN ll1 Twila Lozoya RN RN kc6 Koki Villalta, PAMaryamC PAMaryamC sb4 Estelita Paredes, RN RN hm5 Corrections: (The following items were deleted from the chart) 16:46 16:46 Abdomen Pelvis Wo Con+CT.RAD.BRZ ordered. EDMS EDMS 19:01 17:49 Home sb4 sb4 19:01 17:49 new sb4 sb4 19:01 17:49 are unchanged sb4 sb4 19:01 17:49 Stable sb4 sb4 19:01 17:49 Constipation, unspecified sb4 sb4
[2024-10-10] MEDS ORDERED: FLEET ENEMA ADULT PR ONE ×2 (18:15→18:35)
[2024-10-10] MEDS ORDERED: MIDODRINE HCL 5 MG TABLET ONE (19:23)
[2024-10-10 23:59] VITALS: TEMP 97.3
[2024-10-11 00:27] VITALS: BP 121/62; O2SAT 97
== END 2024-10-10 23:48 | disposition home or self-care (01) ==
LOC: ER 16:02
DX: K59.00 Constipation, unspecified (principal)
CPT/HCPCS: 74176; 99284

== ENCOUNTER 2025-01-09 11:00 | Day surgery (SDC) | payer OTHER ==
[2025-01-07 14:16] LABS: Absolute Lymphocytes (CBC) 0.9 K/uL (0.7-4.9); Hematocrit 40.2 % (39.6-49.0); Hemoglobin 12.9 g/dL (13.6-17.9); MCH 33.8 pg (27.0-35.0); MCHC 32.0 g/dL (32.0-36.0); MCV 105.8 fL (80-100); MPV 7.4 fL (7.6-11.3); Nucleated RBC Absolute Count 0.0 (0-0); Nucleated Red Blood Cells % 0.0 % (0-0); RBC Red Blood Cell Count 3.80 M/uL (4.33-5.43); White Blood Count 8.00 thou/uL (4.3-10.9)
--- NOTE | 2025-01-07 14:23 | RAD REPORT ---
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 COMPARISON: 10/01/2024, 09/30/2024 FINDINGS: Moderate right lung base opacification involving of the parenchyma of the lung along with a pleural e ffusion noted, unchanged since prior study. Small left pleural effusion also present. Left lung is otherwise grossly clear. The heart is mildly enlarged in size. No displaced fractures evident.
[2025-01-07 14:25] LABS: PT Prothrombin Time 11.4 SECONDS (10-13.0); PTT, Activated Partial Thromb 30.4 SECONDS (27.2-37.4); Protime INR 1.01
[2025-01-07 14:40] LABS: Anion Gap 14.0 mEq/L (5.0-15.0); BUN Blood Urea Nitrogen 58.0 mg/dL (7-18); Glucose Level 116.0 mg/dL (74-106); Potassium 5.0 mEq/L (3.5-5.1)
[2025-01-07 16:58] LABS: White Blood Cell Scan OK (OK)
[2025-01-07 16:59] LABS: Blood Morphology Comment NOTED (NOT SEEN); Macrocytosis SLIGHT
[2025-01-09] MEDS ORDERED: NA CHLORIDE 0.9% 500 ML ONE (11:58)
[2025-01-09] MEDS ORDERED: HEPA 1000U/500MLS 2,000 UNIT/1,000 ML BAG IV ONE (14:56)
[2025-01-09] MEDS ORDERED: LIDOCAINE 1% 20 ML MDV ONE ×2 (14:57→15:49)
[2025-01-09] MEDS ORDERED: CLOPIDOGREL 75 MG TABLET ONE (14:57)
[2025-01-09] MEDS ORDERED: TICAGRELOR 90 MG TABLET PO ONE (14:57)
[2025-01-09] MEDS ORDERED: ATROPINE SULF 1 MG/10 ML SYR IV ONE (14:57)
[2025-01-09] MEDS ORDERED: HEPARIN 10,000 UNIT/10 ML VIAL IV ONE (14:57)
[2025-01-09] MEDS ORDERED: HEPARIN 5000 UNIT/ML 1 ML VIAL ONE (14:57)
[2025-01-09] MEDS ORDERED: VERAPAMIL HCL 10 MG/4 ML VIAL IV ONE (14:57)
[2025-01-09] MEDS ORDERED: NALOXONE 0.4 MG/ML VIAL ONE (14:58)
[2025-01-09] MEDS ORDERED: ASPIRIN 325 MG TAB ONE (14:58)
[2025-01-09] MEDS ORDERED: FLUMAZENIL 0.1 MG/ML (5 mL VIAL) IV ONE (14:58)
[2025-01-09] MEDS ORDERED: FENTANYL CITR 100 MCG/2 ML ONE (15:02)
[2025-01-09] MEDS ORDERED: MIDAZOLAM HCL 2 MG/2 ML INJ ONE (15:02)
[2025-01-09 16:55] VITALS: O2SAT 100
[2025-01-09 18:18] VITALS: BP 133/78
--- NOTE | 2025-01-14 02:39 | OP ---
Date of Procedure: 01/09/2025 Surgeon: TABITHA RICARDO Procedure Performed: 1. Selective coronary angiogram. 2. Left heart catheterization. Indication: Unstable angina. Access: Right radial artery 6-Taiwanese, closed with TR band. Complications: None. Bleeding: Less than 50 mL. Total Sedation Time: 45 minutes, used fentanyl and Versed. Description Of Procedure: After risks, benefits, and alternatives were explained, the patient agreed to procedure, signed informed consent. The patient was brought into cardiac catheterization laborat ory, prepped and draped in sterile fashion. Then, I accessed right radial artery using pediatric wanda ropuncture kit, ultrasound guidance, and placed a 6-Tai[place]ese slender sheath and took 5-Tai[place]ese Brick 4.0 catheter into aortic over a J-wire into the aortic root across the aortic valve, measured the LVEDP. Pullback did not record any significant gradient, then engaged left main, took standard views, and then the RCA, took standard views and then removed the catheter and the sheath, placed TR band with g ood hemostasis. Findings: 1. Left main is large and normal. 2. LAD: Proximal 70% stenosis, very large artery. Rest of it is normal. Normal diagonal branches. 3. Left circumflex, also still heavily calcified hazy stenosis that is about 80% to 90%. OM branch i s normal. 4. RCA is normal. Conclusion: Severe LAD and left circumflex disease. Recommendation: Coronary artery bypass surgery. SR/MODL Voice ID: [id number] Report ID: [id number]
== END 2025-01-09 16:20 | disposition home or self-care (01) ==
LOC: CCL 11:00
PROVIDERS: ATTEND Internal Medicine
DX: I25.110 Atherosclerotic heart disease of native coronary artery with unstable angina pectoris (principal); I65.23 Occlusion and stenosis of bilateral carotid arteries; I12.0 Hypertensive chronic kidney disease with stage 5 chronic kidney disease or end stage renal disease; N18.6 End stage renal disease; E78.5 Hyperlipidemia, unspecified; J44.9 Chronic obstructive pulmonary disease, unspecified; G47.33 Obstructive sleep apnea (adult) (pediatric); Z87.891 Personal history of nicotine dependence; Z79.899 Other long term (current) drug therapy; Z88.1 Allergy status to other antibiotic agents; Z88.8 Allergy status to other drugs, medicaments and biological substances
CPT/HCPCS: 93005; 85025; 80048; 36415; 85610; 85730; 71046; 93458; 76937; C1893; Q9966; J1644 ×2; J2003 ×2; J2250; J3010; J7040; C1760; 99152; 99153; J0461; J2310